=== PATIENT | female | born 1945 | race Caucasian/White ===

== ENCOUNTER 2018-02-16 13:31 | Inpatient (IN) | payer MEDICARE ==
[~2018-02-16] VITALS: Ht 157.5 cm; Wt 85.3 kg
[2018-02-16 13:37] VITALS: BP 159/68
[2018-02-16] MEDS ORDERED: NACL 0.9% 1,000 ML IV ONE (13:45)
[2018-02-16] MEDS ORDERED: AMLO2.5T PO (13:55)
[2018-02-16] MEDS ORDERED: ATOR40TA PO (13:55)
[2018-02-16] MEDS ORDERED: SUCR1TAB35 PO (13:55)
[2018-02-16] MEDS ORDERED: METF1000 PO (13:55)
[2018-02-16] MEDS ORDERED: METO25TE2 PO (13:55)
[2018-02-16] MEDS ORDERED: GLIP10TA3 PO (13:55)
--- NOTE | 2018-02-16 14:02 | NUR ---
XRA AT BEDSIDE Addendum: 02/16/18 at 1403 by [facility] XRAY
--- NOTE | 2018-02-16 14:07 | NUR ---
BIBA. RIGHT HIP PAIN, WORSE TODAY. STATES SHE WAS UNABLE TO AMBULATE WITH HER WALKER TODAY. DENIES TRAUMA. HOSPICE. HX: CHF,HTN,DM. FENTANYL PATCH LT. SHOULDER.DENIES N/V/D; SKIN IS PINK/WARM/DRY; AAOX4 WITH EVEN AND STEADY GAIT; LUNGS CLEAR BL; HR EVEN AND REGULAR; PT DENIES ANY FEVER, CP, SOB, OR COUGH AT THIS TIME; PATIENT STATES PAIN OF 9/10 AT THIS TIME; VSS; PATIENT POSITIONED FOR COMFORT; HOB ELEVATED; BEDRAILS UP X2; BED DOWN. ER MD MADE AWARE OF PT STATUS.
[2018-02-16] MEDS ORDERED: MORPHINE SULFATE 4 MG/ML SYR IVP ONE (14:10)
--- NOTE | 2018-02-16 15:20 | NUR ---
SPOKE WITH PATIENTS DAUGHTER OLGA. HER DAUGHTER EXPLAINED THAT HER MOTHERS HOME WAS BEING AUCTIONED OFF TOMMORROW AND SHE CAN NOT RETURN THERE. SHE STATES THAT HER HOME IS NOT CURRENTLY LIVABLE DUE TO HER MOTHER "POOPING, VOMITING, AND PEEING ALL OVER". STATES THEY HAVE CALLED APS 3 TIMES AND NOTHING HAS BEEN CHANGED. DAUGHTER REFUESED TO TAKE RESPONSIBILITY FOR THE PATIENT. WILL FOLLOW UP WITH SW TO DETERMINE THE NEXT STEP.
--- NOTE | 2018-02-16 15:30 | NUR ---
CALLED SW AND LEFT A MESSAGE EXPLAINING THE SITUATION.
--- NOTE | 2018-02-16 15:42 | NUR ---
SPOKE WITH SARAH REGARDING PATIENT PLACEMENT ISSUES. THEY STATED THAT HER INSURANCE WOULD ONLY COVER SNF CARE IF THERE WAS A MEDICAL REASON, THEY WILL NOT COVER HOSPICE CARE IN A ALF. EXPLAINED THIS INFORMATION TO DR JACOBO.
[2018-02-16 15:47] LABS: BASOPHILS % (AUTO) 0.3 % (0.0-2.0); EOSINOPHILS # (AUTO) 0.2 K/uL (0-0.4); EOSINOPHILS % (AUTO) 2.2 % (0.0-4.0); HEMATOCRIT 31.6 % (36-48); HEMOGLOBIN 9.5 g/dL (12.0-16.0); LYMPHOCYTES % (AUTO) 26.1 % (20.5-51.1); MEAN CORPUSCULAR HEMOGLOBIN 20 pg (27-31); MEAN CORPUSCULAR HGB CONC 30 g/dL (33-37); MEAN CORPUSCULAR VOLUME 67.9 fL (80-94); MONOCYTES # (AUTO) 0.6 K/uL (0.8-1.0); MONOCYTES % (AUTO) 5.6 % (1.7-9.3); NEUTROPHILS # (AUTO) 7.5 K/uL (1.8-7.7); NEUTROPHILS % (AUTO) 65.8 % (42.2-75.2); PLATELET COUNT (AUTO) 319 K/uL (140-450); RED BLOOD CELL COUNT(AUTO) 4.65 MIL/uL (4.20-5.40); RED CELL DISTRIBUTION WIDTH 19.4 % (11.6-13.7); WHITE BLOOD COUNT (AUTO) 11.3 K/uL (4.8-10.8)
--- NOTE | 2018-02-16 16:00 | NUR ---
SPOKE WITH DAUGHTER OLGA AGAIN. SHE STATED THAT SHE DOES NOT HAVE A TERMINAL ILLNESS AND IS ON HOSPICE BECAUSE SHE "WANTS TO BE". DAUGHTER STATED SHE HAS HAD MANY TIA'S. SHE GAVE ME THE NUMBER FOR HER SW AND THE BITUMASTIC APPLIER AT [facility] THAT THEY HAVE DEALT WITH IN THE PAST.
[2018-02-16 16:10] LABS: ALBUMIN 2.8 g/dL (3.4-5.0); ANION GAP 13.4 (8-16); ASPARTATE AMINOTRANSFERASE 12 U/L (15-37); CARBON DIOXIDE 27.7 mmol/L (21-32); CHLORIDE 100 mmol/L (98-107); CREATININE 1.1 mg/dL (0.6-1.3); POTASSIUM 4.1 mmol/L (3.5-5.1); SODIUM SERUM 137 mmol/L (136-145); TOTAL BILIRUBIN 0.3 mg/dL (0.0-1.0); UREA NITROGEN, BLOOD 21 mg/dL (7-18)
--- NOTE | 2018-02-16 16:15 | NUR ---
SPOKE WITH SW AND GAVE HER THE HOSPICE INFORMATION. SHE INSTRUCTED ME TO CALL APS. WILL FOLLOW UP.
--- NOTE | 2018-02-16 16:25 | NUR ---
CALLED APS, NO ANSWER LEFT A MESSAGE WITH MARYBETH BARRETO. WILL FOLLOW UP.
[2018-02-16 16:35] LABS: GLUCOSE 421 mg/dL (74-106)
[2018-02-16] MEDS ORDERED: ACETAMINOPHEN 325 MG TAB PO PRN (17:10)
[2018-02-16] MEDS ORDERED: LORazepam 2 MG/ML VIAL IM/IVP PRN (17:10)
[2018-02-16] MEDS ORDERED: ZOLPIDEM 5 MG TAB PO PRN (17:10)
[2018-02-16] MEDS ORDERED: DOCUSATE SODIUM 100 MG GELCAP PO PRN (17:10)
[2018-02-16] MEDS ORDERED: DEXTROSE 50% 50 ML SYR IVP PRN (17:15)
--- NOTE | 2018-02-16 17:45 | NUR ---
GAVE REPORT TO TELE NURSE. PATIENT STABLE.
[2018-02-16 17:46] LABS: MAGNESIUM 1.5 mg/dL (1.8-2.4); PHOSPHORUS 3.1 mg/dL (2.5-4.9); THYROID STIMULATING HORMONE 2.51 uIU/mL (0.34-3.74)
--- NOTE | 2018-02-16 17:55 | NUR ---
RECEIVED PT FROM ER NURSE, PT IS AAOX3. MRSA DONE, VITALS TAKEN. PLACED PT ON TELE. FALL RISK PROTOCOL IN PLACE. BED IN LOWEST POSITION, BED ALARM ON. PT IN YELLOW GOWN AND SOCKS. Addendum: 02/16/18 at 1939 by Umer Valle RN CALL LIGHT WITHIN REACH. ORIENTED PT TO ROOM.
[2018-02-16 18:00] VITALS: BP 184/83
[2018-02-16] MEDS: NACL 0.9% 1,000 ML IV SCH (18:00)
--- NOTE | 2018-02-16 18:05 | NUR ---
CALLED PHARM, REQUESTING ROCEPHIN. PHARM STATED THE ROCEPHIN ORDER WAS PUT IN BY ER DOCTOR. THE FLOOR DOCTOR HAS TO PUT NEW ORDER. MADE DR LOU AWARE.
--- NOTE | 2018-02-16 18:05 | NUR ---
ALSO MADE DR LOU AWARE OF THE BP 184/83
[2018-02-16] MEDS ORDERED: MAG SULF 2000 MG/WATER PREMIX 50 ML IV SCH (18:09)
--- NOTE | 2018-02-16 18:15 | NUR ---
PT C/O LEFT HIP PAIN, WILL ADMINISTER PRN PAIN MED. NO S/S OF RESPIRATORY DISTRESS NOTED.
[2018-02-16] MEDS: MORPHINE SULFATE 4 MG/ML SYR IVP PRN ×2 (18:23→23:42)
[2018-02-16] MEDS ORDERED: LACTOBACILLUS RHAMNOSUS GG 1 EACH CAP PO SCH (18:51)
--- NOTE | 2018-02-16 19:25 | NUR ---
ENDORSED PT TO SAP BW DEVELOPER. PT IN STABLE CONDITION. Addendum: 02/16/18 at 8 by Umer Valle RN NIGHTSHIFT RN WILL ADMINISTER ROCEPHIN.
--- NOTE | 2018-02-16 19:25 | NUR ---
RECEIVED ENDORSEMENT FROM GINA BEARD DAYSHIFT NURSE FOR CONTINUITY OF CARE, PT IN STABLE CONDITION.
[2018-02-16 19:30] VITALS: BP 122/41
[2018-02-16 19:34] LABS: PROTHROMBIN TIME 9.4 secs (10.8-13.4)
[2018-02-16] MEDS ORDERED: ASPI81CT89 PO (20:10)
[2018-02-16] MEDS ORDERED: metFORMIN 500 MG TAB PO SCH (21:00)
--- NOTE | 2018-02-16 21:00 | NUR ---
PT IN BED WITH SIDE RAILS UP X2 AND ALL FALLS PRECAUTIONS IN PLACE. PT GIVEN ALL MEDS DUE AT THIS TIME. GLUCOSE CHECK WAS 323 GIVEN 8 UNITS OF COVERAGE WITH HUMALOG. IV SITE ON LEFT AC INTACT AND FLUSHED PATENT.
[2018-02-16] MEDS: ATORVASTATIN 20 MG TAB PO SCH (21:18)
[2018-02-16] MEDS: METOPROLOL SUCCINATE 50 MG TABER PO SCH (21:19)
[2018-02-16] MEDS: BLOOD GLUCOSE MONITORING 1 DEV DEV FS SCH (21:22)
[2018-02-16] MEDS: INSULIN LISPRO SLIDING SCALE 100 UNITS/ML VIAL SUBQ PRN (21:39)
[2018-02-16] MEDS: KETOROLAC 30 MG/ML VIAL IVP PRN (21:42)
--- NOTE | 2018-02-16 21:45 | NUR ---
PT C/O 6/10 LEFT HIP PAIN, PT GIVEN TORADOL 15MG IVP WILL MONITOR FOR EFFECT.
--- NOTE | 2018-02-16 22:00 | NUR ---
PT BROUGHT DOWN FOR CT OF HEAD WITHOUT CONTRAST.
--- NOTE | 2018-02-16 22:25 | NUR ---
PT RETURNED FROM RADIOLOGY WITH ANDREEA ESCORTING PT VIA W/C TO PT BED. PT ASSISTED BACK TO BED, ALL FALLS PRECAUTIONS IN PLACE.
--- NOTE | 2018-02-16 22:45 | NUR ---
AYLIN FROM RADIOLOGY CALLED WITH RESULTS OF CT SCAN WHICH WAS NEGATIVE. SOME MODERATE ATROPHY, INDICATIVE OF AGE CHANGES. NO ACUTE CHANGES NOTED.
--- NOTE | 2018-02-16 23:50 | NUR ---
PT SAID THAT TORADOL WAS NO LONGER EFFECTIVE AND SHE SAID HER PAIN IS NOW UP TO 8/10, PT GIVEN PRN IVP MORPHINE, WILL MONITOR EFFECT. PT MADE COMFORTABLE AND GIVEN HOT SOUP REQUESTED. WILL CONTINUE TO MONITOR FOR PAIN RELIEF.
--- NOTE | 2018-02-17 00:30 | NUR ---
PT IN BED SIDE RAILS UP X2, HOB ELEVATED 45%. N/S RUNNING ORDERED IV SITE ON RAC FLUSHED NICO, V/S FOLLOWS T 98.0 P 78 R 18 B/P 124/64 02 92 ON R/A. NO S/S OF PAIN OR DISTRESS NOTED. CALL WEAVER IN REACH AND ALL REQUESTED NEEDS ATTENDED BY STAFF.
--- NOTE | 2018-02-17 01:00 | NUR ---
PT C/O OF 11/28 PAIN IN L HIP, GIVEN PRN MORPHINE VIA IV. PT IV SITE SHOWS SOME LEAKING , HOWEVER WILL FLUSH PATENT WITHOUT PAIN. NEW IV SITE ATTEMPTED X1 UNSUCCESSFULLY. PT REFUSED A 2ND ATTEMPT, EVEN AFTER RISKS AND BENEFITS EXPLAINED.PRIMARY NURSE SUGGESTED THAT ANOTHER NURSE, THE CHARGE NURSE CAN ATTEMPT A NEW SITE BUT PT CONTINUED TO REFUSE SAYING THAT SHE DOESN'T WANT A NEW SITE TONIGHT MAYBE TOMMORROW.
[2018-02-17 04:00] VITALS: BP 154/74
--- NOTE | 2018-02-17 05:00 | NUR ---
PT IN BED C/O HIP PAIN /10 GIVEN MORPHINE PRN. LAB DRAWS AT BEDSIDE. V/S FOLLOWS T 98.1 P 96 R 20 B/P 154/71 02 95%. F/S 255 GIVEN 6 UNIYTS OF HUMOLOG
[2018-02-17] MEDS: BLOOD GLUCOSE MONITORING 1 DEV DEV FS SCH ×4 (06:17→20:11)
[2018-02-17] MEDS: INSULIN LISPRO SLIDING SCALE 100 UNITS/ML VIAL SUBQ PRN ×4 (06:21→20:27)
[2018-02-17] MEDS: MORPHINE SULFATE 4 MG/ML SYR IVP PRN ×3 (06:24→18:32)
[2018-02-17 06:30] LABS: T4 (THYROXINE) 7.7 ug/dL (4.5-12.0)
--- NOTE | 2018-02-17 07:36 | NUR ---
REPORT GIVEN TO IRAIDA BEARD DAYSHIFT NURSE, ATBEDSIDE , PT IN STABLE CONDITION.
--- NOTE | 2018-02-17 07:37 | NUR ---
RECEIVED BEDSIDE REPORT FROM FURNITURE FINISHER NURSE. PATIENT IS AWAKE, ALERT AND ORIENTEDX4. NO SIGNS OF DISTRESS ON RA. PATIENTS GAIT IS UNSTEADY, FALL RISK PROTOCOL IN PLACE. ALLERGY BAND IN PLACE. SHE IS INCONTINENT. SKIN INTACT. IV ON R AC 20G INFUSING NS AT 60. CLEAN, DRY AND INTACT. TELE MONITOR IN PLACE. BED IN LOW POSITION. CALL LIGHT WITHIN REACH. WILL CONTINUE TO MONITOR THE PATIENT
[2018-02-17 07:59] LABS: EOSINOPHILS # (AUTO) 0.5 K/uL (0-0.4); HEMOGLOBIN 8.3 g/dL (12.0-16.0); MONOCYTES # (AUTO) 0.9 K/uL (0.8-1.0)
[2018-02-17 08:00] VITALS: BP 151/70
[2018-02-17 08:14] LABS: BASOPHILS # (AUTO) 0.1 K/uL (0.00-0.22); BASOPHILS % (AUTO) 0.5 % (0.0-2.0); EOSINOPHILS % (AUTO) 3.8 % (0.0-4.0); HEMATOCRIT 27.4 % (36-48); LYMPHOCYTES # (AUTO) 3.6 K/uL (2.5-16.5); LYMPHOCYTES % (AUTO) 28.2 % (20.5-51.1); MEAN CORPUSCULAR HEMOGLOBIN 21 pg (27-31); MEAN CORPUSCULAR HGB CONC 30 g/dL (33-37); MEAN CORPUSCULAR VOLUME 67.5 fL (80-94); MONOCYTES % (AUTO) 7.1 % (1.7-9.3); NEUTROPHILS # (AUTO) 7.6 K/uL (1.8-7.7); NEUTROPHILS % (AUTO) 60.4 % (42.2-75.2); PLATELET COUNT (AUTO) 270 K/uL (140-450); RED BLOOD CELL COUNT(AUTO) 4.06 MIL/uL (4.20-5.40); WHITE BLOOD COUNT (AUTO) 12.6 K/uL (4.8-10.8)
[2018-02-17 08:20] LABS: ANION GAP 14.7 (8-16); CARBON DIOXIDE 23.2 mmol/L (21-32); CHLORIDE 105 mmol/L (98-107); CREATININE 1.1 mg/dL (0.6-1.3); GLUCOSE 251 mg/dL (74-106); POTASSIUM 3.9 mmol/L (3.5-5.1); SODIUM SERUM 139 mmol/L (136-145); UREA NITROGEN, BLOOD 19 mg/dL (7-18)
[2018-02-17 08:30] LABS: MAGNESIUM 1.8 mg/dL (1.8-2.4); PHOSPHORUS 3.4 mg/dL (2.5-4.9)
--- NOTE | 2018-02-17 08:39 | NUR ---
PATIENT HAS BEEN SCREENED AND CATEGORIZED HIGH NUTRITION RISK. PATIENT WILL BE SEEN WITHIN 1-2 DAYS OF ADMISSION. 02/17/18 02/18/[address]
[2018-02-17] MEDS: metFORMIN 500 MG TAB PO SCH ×2 (08:42→16:48)
[2018-02-17] MEDS: LACTOBACILLUS RHAMNOSUS GG 1 EACH CAP PO SCH (08:43)
[2018-02-17] MEDS: KETOROLAC 30 MG/ML VIAL IVP PRN ×2 (08:43→16:49)
[2018-02-17] MEDS: SUCRALFATE 1 GM TAB PO SCH ×3 (08:43→16:48)
[2018-02-17] MEDS: FERROUS SULFATE 325 MG TABEC PO SCH (08:44)
[2018-02-17] MEDS: ASCORBIC ACID 500 MG TAB PO SCH (08:45)
[2018-02-17] MEDS: amLODIPine 5 MG TAB PO SCH (08:45)
--- NOTE | 2018-02-17 08:45 | NUR ---
Sap Bw Bi Developer Note: Late entry for 02/16/18: KISHA Martin informed me that patient is not able to return to her home because it is not livable. She stated she will make an APS report for self neglect and possibly abandonment as well. KISHA Ramos stated prior to patients hospital admission patient was living alone and was receiving hospice services from [facility] . She told me patient does not have any other place she can go to. She inquired if family welfare social work professor dept could assist with retirement facility placement. I explained to her that patient needs to have [employer] coverage to be transfer to a snf with hospice services. I also told her that patient can possibly be transfer to a snf if she has a skilled need (wound care, physical therapy, or abx iv/s). She stated she will ask MD if patient has a skilled need.
[2018-02-17] MEDS: glipiZIDE 10 MG TAB PO SCH ×2 (08:46→20:08)
[2018-02-17] MEDS: ASPIRIN 81 MG TAB.CHEW PO SCH (08:46)
--- NOTE | 2018-02-17 08:58 | NUR ---
SP[place] [facility] [place] SAID TO FA[place] FACE SHEET, H&P AND ORDER FOR SNF TO HER AND SHE NEEDS TO CHECK ELIGIBILITY. FAX [phone] PHONE ALISHA [phone].
[2018-02-17] MEDS ORDERED: SODIUM FERRIC GLUCONATE 125 MG in NACL 0.9% 100 ML IV SCH (09:00)
--- NOTE | 2018-02-17 09:20 | NUR ---
ADMINISTERED MEDS. PATIENT TOLERATED WELL. PATIENT ASKED TO BE PLACED IN BED WHITE. UNABLE TO URINATE FOR A UA. WILL TELL DR FOR STRAIGHT CATH ORDER. ALSO TOLD PATIENT WE NEED A STOOL SAMPLE.
[2018-02-17 09:55] LABS: CHOL/HDL RATIO 3.8 (1-4.5)
--- NOTE | 2018-02-17 10:05 | NUR ---
Equine Breeder Note: I called and spoke with patients daughter Kim Kohli , per Kim, she attempted to assist patient with placement in the past due to her (patients) home not being livable, however, she stated patient refused to move out. She told me when patient was home she would sit on couch, watch TV, eat sugar, urine and defecate on couch all day long. She expressed that patient cannot be discharge to her home upon discharge because she is mean to her children and is non compliant. Kim stated patient does not have any other family she can stay with upon discharge from hospital and is aware we will fax inquiries to snf/s. She told me patients house was foreclosed. She stated patient does not know how to manage her finances. 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 I asked her if patient had applied for [employer] in the past or if she had assisted patient with this. She replied she attempted to complete a [employer] application for patient, however, she didnt have all of the required documents, therefore was not able to complete application. She stated patients monthly income is about $1850. I informed her [employer] hvac sales representative Juan will contact her and assist her with [employer] application. Kim agreed to be cooperative with Juan. I requested Juan ext [phone] to assist Kim with filling out patients [employer] application, Director Brandi and heel caser Moriah made aware.
--- NOTE | 2018-02-17 10:21 | NUR ---
DRYING ROOM SUPERVISOR AT BEDSIDE. WILL PLACE STRAIGHT CATH AFTER ECHO IS DONE. PATIENT AGREED TO STRAIGHT CATH
--- NOTE | 2018-02-17 11:11 | NUR ---
STRAIGHT CATH WAS DONE. URINE SAMPLE COLLECTED AND SENT TO LAB.
--- NOTE | 2018-02-17 11:53 | NUR ---
RECEIVED A CALL FROM ALISHA [place] [facility] [place] SHE SAID TO FAX THE REVIEW TO KHALIF AT [phone], WHICH I DID. ADMISSION CHART REVIEW DONE. FAXED INITIAL REVIEW TO [phone] PHONE ALISHA [phone].
[2018-02-17 12:00] VITALS: BP 179/65
[2018-02-17] MEDS: ONDANSETRON 4 MG/2 ML VIAL IM/IVP PRN (13:08)
[2018-02-17 13:11] LABS: FOLIC ACID 13.4 ng/mL (>3.0)
--- NOTE | 2018-02-17 13:11 | NUR ---
ADMINISTERED PRN ZOFRAN. PATIENT VOMITED, B/P ELEVATED. DR BRYAN IS AWARE.
--- NOTE | 2018-02-17 14:19 | NUR ---
Colorist Dyer Note: I faxed inquiry to [facility]. Per Anjali from [facility], they have a contract with [facility] and they can accept patient for physical therapy and have a intermediate frame tender bed available as well. Anjali is aware patient can't return home upon discharge, senior case manager Moriah made aware.
--- NOTE | 2018-02-17 14:42 | NUR ---
[place] [facility] [place] P.T. NOTES TO HER AT [phone]. SHE SAID THAT [facility] WOULD BE WILLING TO ACCEPT THIS PATIENT. I INFORMED HER THAT [facility] WOULD ALSO TAKE HER AND THEY HAVE A INTERMEDIATE BED FOR HER. ALISHA SAID TO LET HER KNOW TOMORROW WHEN PATIENT IS DISCHARGED TO WHICH FACILITY THE PATIENT WILL GO TO AND SHE WILL GIVE THE AUTH. SHE GAVE ME THE AUTH NUMBER FOR [facility], [id number].
[2018-02-17] MEDS: NACL 0.9% 1,000 ML IV SCH (14:45)
--- NOTE | 2018-02-17 15:00 | NUR ---
PATIENT SLEEPING. WILL CONTINUE TO MONITOR
[2018-02-17 15:39] LABS: APPEARANCE,URINE CLEAR (CLEAR); COLOR,URINE YELLOW (YELLOW)
[2018-02-17 15:40] LABS: BILIRUBIN,URINE NEGATIVE (NEGATIVE); BLOOD, URINE 1+ (NEGATIVE); LEUKOCYTE ESTERASE ,URINE 1+ (NEGATIVE); NITRITE, URINE NEGATIVE (NEGATIVE); UGLUCOSE TRACE (NEGATIVE)
[2018-02-17 15:41] LABS: BARBITURATE, URINE NEG. ng/ml (NEG <=200); BENZODIAZEPINE, URINE NEG. ng/mL (NEG <=200); CANNABINOID, URINE NEG. ng/mL (NEG <=50); COCAINE, URINE NEG. ng/mL (NEG <=300); OPIATE, URINE POS. ng/mL (NEG <=2000); PHENCYCLIDINE SCREEN,URINE NEG. ng/mL (NEG <=25)
[2018-02-17 15:42] LABS: RBC,URINE 0-5 (RARE) /HPF (0-5)
[2018-02-17 16:00] VITALS: BP 146/67
--- NOTE | 2018-02-17 17:00 | NUR ---
ADMINISTERED PRN PAIN MEDS. PATIENT TOLERATED WELL. WILL CONTINUE TO MONITOR.
--- NOTE | 2018-02-17 19:05 | NUR ---
RECEIVED REPORT AT BEDSIDE FROM IRAIDA RN DAYSHIFT NURSE, PT IN STABLE CONDITION.
--- NOTE | 2018-02-17 19:05 | NUR ---
GAVE BEDSIDE REPORT TO COOK HELPER JUICE NURSE. PATIENT ENDORSED IN STABLE CONDITION
[2018-02-17 20:00] VITALS: BP 131/53
--- NOTE | 2018-02-17 20:00 | NUR ---
V/S FOLLOWS T 98.4 P 85 R 18 B/P 131/53 02 91 WITH R/A. BED LOW AND ALL FALLS PRECAUTIONS IN PLACE.
[2018-02-17] MEDS: ATORVASTATIN 20 MG TAB PO SCH (20:08)
[2018-02-17] MEDS: METOPROLOL SUCCINATE 50 MG TABER PO SCH (20:10)
--- NOTE | 2018-02-17 21:00 | NUR ---
PT IN LOW BED SIDE RAILS UP X2 AND ALL FALLS PRECAUTIONS IN PLACE. PT GIVEN ALL DUE MEDS AT THIS TIME . PT F/S WAS 154 GIVEN 2 UNITS OF COVERAGE WITH HUMALOG. PT HAD NO C/O OF PAIN AT THIS TIME BUT REQUESTED PM SNACK OF SUGAR FREE JELLO WHICH WAS GIVEN TO HER.
[2018-02-18] VITALS: BP 118/52
[2018-02-18] MEDS: MORPHINE SULFATE 4 MG/ML SYR IVP PRN ×5 (00:35→22:28)
[2018-02-18] MEDS: NACL 0.9% 1,000 ML IV SCH ×2 (02:27→20:19)
[2018-02-18 06:00] VITALS: BP 105/63
[2018-02-18] MEDS: BLOOD GLUCOSE MONITORING 1 DEV DEV FS SCH ×4 (06:05→20:01)
[2018-02-18] MEDS: metFORMIN 500 MG TAB PO SCH (06:07)
--- NOTE | 2018-02-18 07:20 | NUR ---
GAVE REPORT AT BEDSIDE TO DAYSHIFT RN FOR CONTINUITY OF CARE, PT INSTABLE CONDITION
--- NOTE | 2018-02-18 07:21 | NUR ---
RECEIVED BEDSIDE REPORT FROM INSTRUMENT AND CONTROLS TECHNICIAN NURSE. PATIENT IS AWAKE, ALERT AND ORIENTEDX4. SHE IS WEAK, FALL RISK PROTOCOL IN PLACE. INCONTINENT. SKIN IS INTACT. TELE MONITOR IN PLACE. R AC 20G INFUSING NS AT 60. CLEAN, DRY AND INTACT. BED IN LOW POSITION. CALL LIGHT WITHIN REACH. WILL CONTINUE TO MONITOR THE PATIENT.
[2018-02-18 07:26] LABS: BASOPHILS # (AUTO) 0.1 K/uL (0.00-0.22); BASOPHILS % (AUTO) 0.5 % (0.0-2.0); EOSINOPHILS # (AUTO) 0.4 K/uL (0-0.4); HEMATOCRIT 26.9 % (36-48); HEMOGLOBIN 8.2 g/dL (12.0-16.0); LYMPHOCYTES # (AUTO) 4.6 K/uL (2.5-16.5); LYMPHOCYTES % (AUTO) 40.9 % (20.5-51.1); MEAN CORPUSCULAR HEMOGLOBIN 21 pg (27-31); MEAN CORPUSCULAR HGB CONC 30 g/dL (33-37); MEAN CORPUSCULAR VOLUME 68.3 fL (80-94); MONOCYTES # (AUTO) 0.8 K/uL (0.8-1.0); MONOCYTES % (AUTO) 6.8 % (1.7-9.3); NEUTROPHILS # (AUTO) 5.4 K/uL (1.8-7.7); NEUTROPHILS % (AUTO) 47.8 % (42.2-75.2); PLATELET COUNT (AUTO) 272 K/uL (140-450); RED BLOOD CELL COUNT(AUTO) 3.94 MIL/uL (4.20-5.40); RED CELL DISTRIBUTION WIDTH 19.7 % (11.6-13.7); WHITE BLOOD COUNT (AUTO) 11.3 K/uL (4.8-10.8)
[2018-02-18 07:44] LABS: ANION GAP 13.1 (8-16); CARBON DIOXIDE 24.7 mmol/L (21-32); CHLORIDE 106 mmol/L (98-107); CREATININE 1.1 mg/dL (0.6-1.3); GLUCOSE 120 mg/dL (74-106); POTASSIUM 3.8 mmol/L (3.5-5.1); SODIUM SERUM 140 mmol/L (136-145); UREA NITROGEN, BLOOD 22 mg/dL (7-18)
[2018-02-18 07:54] LABS: MAGNESIUM 1.8 mg/dL (1.8-2.4); PHOSPHORUS 3.4 mg/dL (2.5-4.9)
[2018-02-18 08:00] VITALS: BP 127/60
[2018-02-18] MEDS: glipiZIDE 10 MG TAB PO SCH ×2 (09:37→20:21)
[2018-02-18] MEDS: LACTOBACILLUS RHAMNOSUS GG 1 EACH CAP PO SCH (09:37)
[2018-02-18] MEDS: FERROUS SULFATE 325 MG TABEC PO SCH (09:38)
[2018-02-18] MEDS: SUCRALFATE 1 GM TAB PO SCH ×3 (09:38→18:13)
[2018-02-18] MEDS: amLODIPine 5 MG TAB PO SCH (09:39)
[2018-02-18] MEDS: ASPIRIN 81 MG TAB.CHEW PO SCH (09:40)
[2018-02-18] MEDS: ASCORBIC ACID 500 MG TAB PO SCH (09:40)
[2018-02-18] MEDS: ONDANSETRON 4 MG/2 ML VIAL IM/IVP PRN (09:49)
--- NOTE | 2018-02-18 09:55 | NUR ---
ADMINISTERED MEDS. PATIENT TOLERATED WELL. WILL CONTINUE TO MONITOR THE PATIENT.
--- NOTE | 2018-02-18 11:00 | NUR ---
PATIENT IS SLEEPING. NO SIGNS OF DISTRESS. WILL CONTINUE TO MONITOR
[2018-02-18 12:00] VITALS: BP 150/68
[2018-02-18] MEDS ORDERED: PANTOPRAZOLE 40 MG TABEC PO SCH (13:30)
[2018-02-18] MEDS: INSULIN LISPRO SLIDING SCALE 100 UNITS/ML VIAL SUBQ PRN ×3 (13:34→20:26)
--- NOTE | 2018-02-18 13:38 | NUR ---
ADMINISTERED MEDS. PATIENT HAS HEARTBURN. DR MEDEROS ORDERED PROTONIX, PATIENT TOLERATED WELL. ADMINISTERED PRN MORPHINE FOR PAIN. NEW IV ON L FA 20G, OTHER IV SITE NOT PATENT ANYMORE. Addendum: 02/18/18 at 1340 by Saundra Meier RN IV TIP WAS INTACT.
--- NOTE | 2018-02-18 15:11 | NUR ---
02/18/18 RD INITIAL ASSESSMENT COMPLETED PLEASE REFER TO NUTRITION ASSESSMENT UNDER CARE ACTIVITY FOR ESTIMATED NUTRITIONAL NEEDS. 1. CONTINUE CARDIAC & CCHO 60 GM DIET TOLERATED 2. RD PROVIDED NUTRITION EDUCATION ON DIABETES 3. RD TO FOLLOW-UP 3-5 DAYS, MODERATE RISK YASMEEN ROSS RD
[2018-02-18] MEDS: KETOROLAC 30 MG/ML VIAL IVP PRN (15:41)
--- NOTE | 2018-02-18 15:45 | NUR ---
ADMINISTERED PRN PAIN MEDS. PATIENT TOLERATED WELL. BED IN LOW POSITION. CALL LIGHT WITHIN REACH. WILL CONTINUE TO MONITOR.
[2018-02-18 16:00] VITALS: BP 128/53
--- NOTE | 2018-02-18 17:43 | NUR ---
PATIENT LAYING IN BED. NO SIGNS OF DISTRESS. WILL CONTINUE TO MONITOR
--- NOTE | 2018-02-18 18:21 | NUR ---
ADMINISTERED MEDS. PATIENT TOLERATED WELL. WILL CONTINUE TO MONITOR
--- NOTE | 2018-02-18 19:15 | NUR ---
GAVE BEDSIDE REPORT TO FIRE PREVENTION BUREAU CAPTAIN NURSE. PATIENT ENDORSED IN STABLE CONDITION
--- NOTE | 2018-02-18 19:15 | NUR ---
RECEIVED REPORT FROM DAY SHIFT NURSE, STEVE, AT PT BEDSIDE. PT IN STABLE CONDITION. PT IS AAO X4. PT IS ON RA. RESPIRATIONS ARE EVEN AND UNLABORED. PT SKIN IS INTACT. IV ACCESS IN L FA 22G WITH IVF RUNNING PER MD ORDERS. IV IS PATENT ADN INTACT. PT HAS NO C/O PAIN AT THIS TIME. BED IS LOCKED, LOW POSITION WITH SIDE RAILS UP X2. BOARD UPDATED. CALL LIGHT IS WITHIN REACH. WILL CONTINUE TO MONITOR. Addendum: 02/18/18 at 2124 by Kassidy Deluna RN PT REFUSING TO WEAR ALLERGY WRISTBAND.
[2018-02-18 20:00] VITALS: BP 122/44
[2018-02-18] MEDS: METOPROLOL SUCCINATE 50 MG TABER PO SCH (20:20)
[2018-02-18] MEDS: ATORVASTATIN 20 MG TAB PO SCH (20:21)
--- NOTE | 2018-02-18 20:22 | NUR ---
ADMINISTERED SCHEDULED MEDICATIONS. INSULIN COVERAGE GIVEN FOR BS 189. PT TOLERATED WELL. WILL CONTINUE TO MONITOR.
--- NOTE | 2018-02-18 22:28 | NUR ---
PT C/O PAIN. MORPHINE GIVEN. PT CLEANED AND CHANGED. PT TOLERATED WELL. ALL OTHER NEEDS ARE MET AT THIS TIME. WILL CONTINUE TO MONITOR.
--- NOTE | 2018-02-18 23:28 | NUR ---
PT NO LONGER C/O PAIN. PT IS RESTING COMFORTABLY IN BED. NO SIGNS OR SYMPTOMS OF DISTRESS. WILL CONTINUE TO MONITOR.
[2018-02-19] VITALS: BP 132/72
--- NOTE | 2018-02-19 01:05 | NUR ---
ASSISTED PT WITH REPOSITIONING FOR COMFORT. PT HAS NO SIGNS OR SYMPTOMS OF DISTRESS. WILL CONTINUE TO MONITOR.
[2018-02-19] MEDS: NACL 0.9% 1,000 ML IV SCH (03:02)
--- NOTE | 2018-02-19 03:02 | NUR ---
STARTED NEW BAG OF IVF. PT IS ASLEEP IN BED. NO SIGNS OR SYMPTOMS OF DISTRESS. WILL CONTINUE TO MONITOR.
[2018-02-19 04:00] VITALS: BP 136/51
[2018-02-19] MEDS: MORPHINE SULFATE 4 MG/ML SYR IVP PRN ×2 (04:13→09:44)
--- NOTE | 2018-02-19 04:14 | NUR ---
PT C/O PAIN. MORPHINE GIVEN. CHANGED AND CLEANED PT. PT TOLERATED WELL. WILL CONTINUE TO MONITOR.
[2018-02-19] MEDS: BLOOD GLUCOSE MONITORING 1 DEV DEV FS SCH ×2 (05:55→12:24)
--- NOTE | 2018-02-19 05:57 | NUR ---
ADMINISTERED SCHEDULED MEDICATION. BS CHECKED, 103. NO COVERAGE NEEDED PER MD ORDERS. WILL CONTINUE TO MONITOR PT.
[2018-02-19] MEDS ORDERED: PANTOPRAZOLE 40 MG TABEC PO SCH ×2 (06:30)
[2018-02-19 07:14] LABS: BASOPHILS # (AUTO) 0.1 K/uL (0.00-0.22); BASOPHILS % (AUTO) 0.9 % (0.0-2.0); EOSINOPHILS # (AUTO) 0.6 K/uL (0-0.4); HEMATOCRIT 27.8 % (36-48); HEMOGLOBIN 8.4 g/dL (12.0-16.0); LYMPHOCYTES # (AUTO) 5.1 K/uL (2.5-16.5); LYMPHOCYTES % (AUTO) 46.1 % (20.5-51.1); MEAN CORPUSCULAR HEMOGLOBIN 21 pg (27-31); MEAN CORPUSCULAR HGB CONC 30 g/dL (33-37); MEAN CORPUSCULAR VOLUME 69.1 fL (80-94); MONOCYTES # (AUTO) 0.8 K/uL (0.8-1.0); MONOCYTES % (AUTO) 7.5 % (1.7-9.3); NEUTROPHILS # (AUTO) 4.5 K/uL (1.8-7.7); NEUTROPHILS % (AUTO) 40.5 % (42.2-75.2); PLATELET COUNT (AUTO) 273 K/uL (140-450); RED BLOOD CELL COUNT(AUTO) 4.02 MIL/uL (4.20-5.40); RED CELL DISTRIBUTION WIDTH 19.6 % (11.6-13.7); WHITE BLOOD COUNT (AUTO) 11.1 K/uL (4.8-10.8)
--- NOTE | 2018-02-19 07:25 | NUR ---
ENDORSED PT TO DAY SHIFT NURSE FOR CONTINUITY OF CARE. PT IN STABLE CONDITION.
--- NOTE | 2018-02-19 07:26 | NUR ---
RECEIVED REPORT FROM RECRUITER NURSE. PT LYING IN BED IN STABLE CONDITION. RESPIRATIONS EVEN AND UNLABORED. ROOM AIR. IV INTACT, PATENT, RFA 22G. REVIEWED CARE PLAN WITH PT, PT VERBALIZED UNDERSTANDING OF CARE PLAN. SAFETY MEASURES IN PLACE. CALL LIGHT AT BEDSIDE. WILL CONTINUE TO MONITOR.
[2018-02-19 07:32] LABS: ANION GAP 11.8 (8-16); CARBON DIOXIDE 25.5 mmol/L (21-32); CHLORIDE 108 mmol/L (98-107); CREATININE 1.1 mg/dL (0.6-1.3); GLUCOSE 112 mg/dL (74-106); POTASSIUM 4.3 mmol/L (3.5-5.1); SODIUM SERUM 141 mmol/L (136-145); UREA NITROGEN, BLOOD 22 mg/dL (7-18)
[2018-02-19 08:00] VITALS: BP 130/55
[2018-02-19] MEDS: glipiZIDE 10 MG TAB PO SCH (08:23)
[2018-02-19] MEDS: LACTOBACILLUS RHAMNOSUS GG 1 EACH CAP PO SCH (08:24)
[2018-02-19] MEDS: ASPIRIN 81 MG TAB.CHEW PO SCH (08:24)
[2018-02-19] MEDS: metFORMIN 850 MG TAB PO SCH ×2 (08:24→12:23)
[2018-02-19] MEDS: FERROUS SULFATE 325 MG TABEC PO SCH (08:24)
[2018-02-19] MEDS: amLODIPine 5 MG TAB PO SCH (08:25)
[2018-02-19] MEDS: ASCORBIC ACID 500 MG TAB PO SCH (08:25)
[2018-02-19] MEDS: SUCRALFATE 1 GM TAB PO SCH ×2 (08:27→12:53)
[2018-02-19] MEDS ORDERED: LACT10CA1 PO (08:33)
[2018-02-19] MEDS ORDERED: ROC2I IV (08:33)
--- NOTE | 2018-02-19 09:00 | NUR ---
PT LYING IN BED IN STABLE CONDITION. RESPIRATIONS EVEN AND UNLABORED. DUE ORDERED MEDICATIONS GIVEN. SAFETY MEASURES IN PLACE. CALL LIGHT AT BEDSIDE. WILL CONTINUE TO MONITOR.
[2018-02-19 11:30] VITALS: BP 130/55
--- NOTE | 2018-02-19 11:30 | NUR ---
PT LYING IN BED WATCHING TV. NO DISTRESS NOTED, CONDITION UNCHANGED. WILL CONTINUE TO MONITOR.
[2018-02-19 12:00] VITALS: BP 133/59
--- NOTE | 2018-02-19 12:08 | NUR ---
Hris Analyst Note: Per Anjali from [facility] , patient may go to room 21A at their facility today, accepting physician is , supportive employment case manager Aditi gonzales.
--- NOTE | 2018-02-19 12:08 | NUR ---
LATE ENTRY FOR 02/18/18 PER ALISHA SOARES AT [facility] FOR [facility] IS #[id number] AND THE SAME NUMBER TO BE USED FOR [facility] [facility].
[2018-02-19] MEDS: INSULIN LISPRO SLIDING SCALE 100 UNITS/ML VIAL SUBQ PRN (12:21)
--- NOTE | 2018-02-19 12:41 | NUR ---
CM NOTE PER ALIVIA [facility] PH# [phone], PATIENT WILL BE PICKED UP AT 1430 TIME TODAY [facility]. CHRIST BEARD AWARE.
--- NOTE | 2018-02-19 13:30 | NUR ---
CALLED [facility]. GAVE REPORT FOR TRANSFER TO KISHA LAMBERT. ALL OF PETRA'S QUESTIONS WERE ANSWERED AT TIME OF CALL, PETRA VERBALIZED UNDERSTANDING. PT WILL BE HOUSED IN RM 21 BED B. FACILITY AWAITING FOR PT ARRIVAL AROUND 1430.
--- NOTE | 2018-02-19 14:45 | NUR ---
PT DISCHARGED TO [facility]. ALL DISCHARGE PAPERWORK SIGNED.PT GIVEN DISCHARGE INSTRUCTIONS IN PREFERRED LANGUAGE WELSH. PT VERBALIZED UNDERSTANDING OF DISCHARGE INSTRUCTIONS. ANSWERED ALL PT QUESTIONS REGARDING TRANSFER. RESPIRATIONS EVEN AND UNLABORED. IV LEFT FA, INTACT, PATENT. PT TRANSPORTED VIA [facility].
== END 2018-02-19 14:45 | DRG 871 ==
LOC: MED 13:31 → MTU 17:14
PROVIDERS: ADMIT General Practice; ATTEND General Practice
DX: A41.9 Sepsis, unspecified organism (principal); G93.41 Metabolic encephalopathy; E43 Unspecified severe protein-calorie malnutrition; I50.43 Acute on chronic combined systolic (congestive) and diastolic (congestive) heart failure; N39.0 Urinary tract infection, site not specified; E11.65 Type 2 diabetes mellitus with hyperglycemia; E78.5 Hyperlipidemia, unspecified; E83.42 Hypomagnesemia; D50.9 Iron deficiency anemia, unspecified; M19.012 Primary osteoarthritis, left shoulder; M19.011 Primary osteoarthritis, right shoulder; K21.9 Gastro-esophageal reflux disease without esophagitis; M94.0 Chondrocostal junction syndrome [Tietze]; I25.10 Atherosclerotic heart disease of native coronary artery without angina pectoris; G89.29 Other chronic pain; I70.203 Unspecified atherosclerosis of native arteries of extremities, bilateral legs; I11.0 Hypertensive heart disease with heart failure; I16.0 Hypertensive urgency; E11.51 Type 2 diabetes mellitus with diabetic peripheral angiopathy without gangrene; Z88.5 Allergy status to narcotic agent; Z79.84 Long term (current) use of oral hypoglycemic drugs; Z79.899 Other long term (current) drug therapy; Z90.49 Acquired absence of other specified parts of digestive tract; Z95.1 Presence of aortocoronary bypass graft; Z98.42 Cataract extraction status, left eye; Z79.82 Long term (current) use of aspirin; Z91.14 Patient's other noncompliance with medication regimen; Z68.34 Body mass index [BMI] 34.0-34.9, adult
CPT/HCPCS: 36415; 70450; 71045; 73502; 80048; 80053; 80305; 81001; 82150; 82607; 82728; 82746; 82948; 83036; 83540; 83690; 83735; 83880; 84100; 84436; 84443; 84484; 85025; 85045; 85610; 85730; 87040; 87081; 87086; 93005; 93925; 93970; 96361; 96374; 97110; 97116; 97530; 99285; C1758; J0696; J1644; J1885; J2270; J2405; J2916; J3475; J7030; J7060; Q0092

== ENCOUNTER 2018-11-03 15:16 | Inpatient (IN) | payer MEDICARE, OTHER ==
[~2018-11-03] VITALS: Ht 157.5 cm; Wt 103.4 kg
[~2018-11-03 15:16] MED LIST: AMLO2.5T PO; ASPI-1718 PO; ATOR40TA PO; GLIP10TA3 PO; LACT10CA1 PO; METF1000 PO; METO25TE2 PO; ROC2I IV; SUCR1TAB35 PO
[2018-11-03 15:18] VITALS: BP 137/62
--- NOTE | 2018-11-03 15:25 | NUR ---
mame from [facility] for evaluation of generalized weakness x2 weeks worsening today, also dx with UTI, sent by Dr. Resendiz. pt denies sob, n/v. aao x4, perrla, brisk 3mm, full clear speech, even and unlabored breathing. equal lily strength to upper and lower extremities. pt placed on full classroom monitor.
[2018-11-03] MEDS ORDERED: CLON0.1T42 PO (15:35)
[2018-11-03] MEDS ORDERED: CALC-1093 PO (15:35)
[2018-11-03] MEDS ORDERED: ACET-2619 PO (15:35)
[2018-11-03] MEDS ORDERED: NACL 0.9% 1,000 ML IV SCH (16:23)
--- NOTE | 2018-11-03 16:25 | NUR ---
DR ELIZONDO AT BEDSIDE FOR PT EVAL
[2018-11-03 17:10] LABS: BASOPHILS % (AUTO) 0.2 % (0.0-2.0); EOSINOPHILS # (AUTO) 0.3 K/uL (0-0.4); EOSINOPHILS % (AUTO) 2.5 % (0.0-4.0); HEMATOCRIT 28.2 % (36-48); HEMOGLOBIN 8.4 g/dL (12.0-16.0); MEAN CORPUSCULAR HEMOGLOBIN 20 pg (27-31); MEAN CORPUSCULAR HGB CONC 30 g/dL (33-37); MEAN CORPUSCULAR VOLUME 68.3 fL (80-94); MONOCYTES # (AUTO) 0.8 K/uL (0.8-1.0); MONOCYTES % (AUTO) 7.4 % (1.7-9.3); NEUTROPHILS % (AUTO) 62.9 % (42.2-75.2); PLATELET COUNT (AUTO) 394 K/uL (140-450); RED BLOOD CELL COUNT(AUTO) 4.13 MIL/uL (4.20-5.40); RED CELL DISTRIBUTION WIDTH 18.1 % (11.6-13.7); WHITE BLOOD COUNT (AUTO) 11.1 K/uL (4.8-10.8)
[2018-11-03 17:26] LABS: ALBUMIN 2.5 g/dL (3.4-5.0); ANION GAP 15.4 (8-16); ASPARTATE AMINOTRANSFERASE 13 U/L (15-37); CARBON DIOXIDE 24.8 mmol/L (21-32); CHLORIDE 101 mmol/L (98-107); CREATININE 1.1 mg/dL (0.6-1.3); GLUCOSE 307 mg/dL (74-106); POTASSIUM 4.2 mmol/L (3.5-5.1); SODIUM SERUM 137 mmol/L (136-145); TOTAL BILIRUBIN 0.2 mg/dL (0.0-1.0); UREA NITROGEN, BLOOD 22 mg/dL (7-18)
[2018-11-03] MEDS ORDERED: ONDANSETRON 4 MG/2 ML VIAL IM/IVP PRN (18:05)
[2018-11-03] MEDS ORDERED: HYDROcodone/APAP 5/325 MG 1 TAB TAB PO PRN (18:05)
[2018-11-03] MEDS ORDERED: DOCUSATE SODIUM 100 MG GELCAP PO PRN (18:05)
[2018-11-03] MEDS ORDERED: ACETAMINOPHEN 325 MG TAB PO PRN ×2 (18:05→19:55)
[2018-11-03] MEDS ORDERED: DEXTROSE 50% 50 ML SYR IVP PRN (18:30)
--- NOTE | 2018-11-03 18:32 | NUR ---
MULTIPLE IV INITIATION ATTEMPTS. CHARGE NURSE MADE AWARE.
--- NOTE | 2018-11-03 18:33 | NUR ---
URINE OBTAINED VIA CATHETER USING STERILE TECHNIQUE. PT TOLERATED WELL. URINE OUTPUT OF 200 ML. YELLOW, HAZY URINE NOTED.
--- NOTE | 2018-11-03 19:00 | NUR ---
PT SITTING UP RIGHT EATING DINNER AT THIS TIME. PT CONVERSATING APPROPRIATELY WITH DR ANTHONY. NO SIGNS AND SYMPTOMS OF DISTRESS NOTED.
[2018-11-03 19:05] LABS: APPEARANCE,URINE CLOUDY (CLEAR); BILIRUBIN,URINE NEGATIVE (NEGATIVE); BLOOD, URINE 1+ (NEGATIVE); COLOR,URINE YELLOW (YELLOW); LEUKOCYTE ESTERASE ,URINE 3+ (NEGATIVE); NITRITE, URINE POSITIVE (NEGATIVE); UGLUCOSE 2+ (NEGATIVE)
[2018-11-03 19:10] LABS: BARBITURATE, URINE NEG. ng/ml (NEG <=200); BENZODIAZEPINE, URINE NEG. ng/mL (NEG <=200); CANNABINOID, URINE NEG. ng/mL (NEG <=50); COCAINE, URINE NEG. ng/mL (NEG <=300); OPIATE, URINE NEG. ng/mL (NEG <=2000); PHENCYCLIDINE SCREEN,URINE NEG. ng/mL (NEG <=25)
[2018-11-03 19:30] VITALS: BP 123/66
--- NOTE | 2018-11-03 19:30 | NUR ---
RECEIVED BEDSIDE REPORT FROM PATIENT RELATIONS COORDINATOR. PT IS AAOX4 ON ROOM AIR. RESPIRATIONS ARE EQUAL AND UNLABORED. PT CAME IN [facility] AND 3 NURSES TRANSFERRED PT TO UNIT BED. SKIN IS INTACT. IV ON LEFT HAND 24G NS BOLUS INFUSING. PT IS INCONTINENT AND BEDREST. COMING FROM [facility]. VS: 118/68 HR 100, 98.0 TEMP, 18,98% RA.PLAN OF CARE DISCUSSED WITH PATIENT. ALLERGY BAND ON AND FALL BAND ON. CALL LIGHT IS WITHIN REACH. WILL ROUND FREQUENTLY.
--- NOTE | 2018-11-03 19:30 | NUR ---
Patient will be admitted to care of DR PENG. Admited to MED SURG. Will go to ibup762 A. Belongings list completed. Report to KISHA APARICIO.
[2018-11-03 19:50] LABS: MAGNESIUM 1.5 mg/dL (1.8-2.4); THYROID STIMULATING HORMONE 4.03 uIU/mL (0.34-3.74)
[2018-11-03 19:53] LABS: WBC,URINE 80-100 /HPF (0-5)
[2018-11-03] MEDS ORDERED: cloNIDine 0.1 MG TAB PO PRN (19:55)
[2018-11-03] MEDS ORDERED: glipiZIDE 10 MG TAB PO SCH (21:00)
[2018-11-03] MEDS ORDERED: cefTRIAXone 1,000 MG VIAL ONE (21:40)
[2018-11-03] MEDS: METOPROLOL SUCCINATE 50 MG TABER PO SCH (21:46)
[2018-11-03] MEDS: BLOOD GLUCOSE MONITORING 1 DEV DEV FS SCH (21:46)
[2018-11-03] MEDS: metFORMIN 500 MG TAB PO SCH (21:46)
[2018-11-03] MEDS: NACL 0.9% 1,000 ML IV SCH (21:46)
--- NOTE | 2018-11-03 21:46 | NUR ---
SCHEDULED MEDICATIONS WERE GIVEN PT TOLERATED WELL. BLOOD SUGAR IS 319 COVERAGE GIVEN PER ORDERS. WILL CONTINUE TO MONITOR.
[2018-11-03] MEDS: INSULIN LISPRO SLIDING SCALE 100 UNITS/ML VIAL SUBQ PRN (21:47)
[2018-11-03] MEDS ORDERED: MAG SULF 2000 MG/WATER PREMIX 50 ML IV SCH (22:15)
[2018-11-03] MEDS ORDERED: SODIUM FERRIC GLUCONATE 125 MG in NACL 0.9% 100 ML IV SCH (22:30)
--- NOTE | 2018-11-03 23:13 | NUR ---
FERRLECIT NOW INFUSING PER ORDERS. ALL NEEDS MET AT THIS TIME. CALL LIGHT IS WITHIN REACH. WILL CONTINUE TO MONITOR.
[2018-11-03] MEDS ORDERED: SODIUM FERRIC GLUCONATE 12.5 MG/ML AMP IV ONE (23:18)
[2018-11-04] MEDS ORDERED: CALCIUM CARBONATE 500 MG TAB.CHEW PO PRN (00:15)
--- NOTE | 2018-11-04 00:30 | NUR ---
VITAL SIGNS ARE WITHIN NORMAL LIMITS. PT SITTING IN BED COMFORTABLY EATING JELLO. CALL LIGHT IS WITHIN REACH. WILL CONTINUE TO MONITOR
--- NOTE | 2018-11-04 01:45 | NUR ---
IV WAS ACCIDENTLY REMOVED WHILE PT WAS ASLEEP. IV IS INTACT. NEW IV BEGAN ON R WRIST 24G. IVF NOW INFUSING PER ORDERS. PT TOLERATED WELL. WILL CONTINUE TO MONITOR.
--- NOTE | 2018-11-04 02:00 | NUR ---
PT AWAKE NO S/S OF DISTRESS. CALL LIGHT IS WITHIN REACH. WILL CONTINUE TO MONITOR.
--- NOTE | 2018-11-04 04:05 | NUR ---
PATIENT IS SITTING IN BED EATING NIGHT SNACK. CALL LIGHT IS WITHIN REACH. WILL CONTINUE TO MONITOR.
--- NOTE | 2018-11-04 05:14 | NUR ---
PATIENT REFUSED BLOOD DRAW DR AWARE. NO S/S OF DISTRESS. WILL CONTINUE TO MONITOR.
[2018-11-04] MEDS: BLOOD GLUCOSE MONITORING 1 DEV DEV FS SCH ×4 (06:15→20:48)
--- NOTE | 2018-11-04 06:16 | NUR ---
BLOOD SUGAR IS 191 PT REFUSING INSULIN STATES ONLY IF ITS ABOVE 200. EDUCATED PATIENT ON IMPORTANCE OF STRICT BLOOD SUGAR CONTROL AND DOCTOR ORDERED COVERAGE IF 151 OR ABOVE BUT STILL REFUSING. EDUCATED ON SIDE EFFECTS OF POOR CONTROL. PT VERBALIZED UNDERSTANDING. WILL CONTINUE TO MONITOR.
[2018-11-04] MEDS: glipiZIDE 10 MG TAB PO SCH ×2 (07:25→17:47)
--- NOTE | 2018-11-04 07:29 | NUR ---
GAVE BEDSIDE REPORT TO JERRY BEARD. PT IN STABLE CONDITION
[2018-11-04 08:00] VITALS: BP 155/58
--- NOTE | 2018-11-04 08:00 | NUR ---
READ PT'S CHART. PT EATING BREAKFAST AT BEDSIDE, US TECH DOING US VENOUS/ARTERIAL BLE. OCCULT BLOOD SIGN OUTSIDE DOOR. NS RUNNING AT 60CC/HR THROUGH RIGHT FOREARM 24. PT A/O X4, WILL CONTINUE TO MONITOR
[2018-11-04 08:16] LABS: T4 (THYROXINE) 6.9 ug/dL (4.5-12.0)
[2018-11-04] MEDS: SUCRALFATE 1 GM TAB PO SCH ×3 (08:38→17:47)
[2018-11-04] MEDS: ASCORBIC ACID 500 MG TAB PO SCH (08:38)
[2018-11-04] MEDS: ASPIRIN 81 MG TAB.CHEW PO SCH (08:38)
[2018-11-04] MEDS: amLODIPine 5 MG TAB PO SCH (08:38)
[2018-11-04] MEDS: FERROUS SULFATE 325 MG TABEC PO SCH ×3 (08:38→17:47)
[2018-11-04] MEDS: GABAPENTIN 300 MG CAP PO SCH ×3 (08:39→17:47)
[2018-11-04] MEDS ORDERED: SUCRALFATE 1 GM TAB PO SCH ×2 (09:00)
--- NOTE | 2018-11-04 09:13 | NUR ---
PATIENT HAS BEEN SCREENED AND CATEGORIZED HIGH NUTRITION RISK. PATIENT WILL BE SEEN WITHIN 1-2 DAYS OF ADMISSION. 11/04/18-11/05/[address]
[2018-11-04] MEDS: NACL 0.9% 1,000 ML IV SCH ×2 (10:44→22:14)
--- NOTE | 2018-11-04 10:51 | NUR ---
PT CURRENTLY WORKING ON PT. PT REPOSITIONED AND CHANGED. DENIES PAIN, ON RA IN NO RESP DISTRESS. WILL CONTINUE TO MONITOR
[2018-11-04 12:09] LABS: FOLIC ACID 13.8 ng/mL (>3.0)
[2018-11-04] MEDS: INSULIN LISPRO SLIDING SCALE 100 UNITS/ML VIAL SUBQ PRN ×2 (12:20→17:58)
--- NOTE | 2018-11-04 14:39 | NUR ---
PT RESTING COMFORTABLY, ATE LUNCH, ON RA IN NO RESP DISTRESS, WILL CONTINUE TO MONITOR
[2018-11-04 16:01] LABS: BASOPHILS # (AUTO) 0.1 K/uL (0.00-0.22); BASOPHILS % (AUTO) 0.6 % (0.0-2.0); EOSINOPHILS # (AUTO) 0.3 K/uL (0-0.4); EOSINOPHILS % (AUTO) 2.6 % (0.0-4.0); HEMATOCRIT 25.7 % (36-48); HEMOGLOBIN 7.6 g/dL (12.0-16.0); LYMPHOCYTES # (AUTO) 2.6 K/uL (2.5-16.5); LYMPHOCYTES % (AUTO) 23.3 % (20.5-51.1); MEAN CORPUSCULAR HEMOGLOBIN 20 pg (27-31); MEAN CORPUSCULAR HGB CONC 30 g/dL (33-37); MEAN CORPUSCULAR VOLUME 67.5 fL (80-94); MONOCYTES # (AUTO) 0.8 K/uL (0.8-1.0); MONOCYTES % (AUTO) 7.5 % (1.7-9.3); NEUTROPHILS # (AUTO) 7.4 K/uL (1.8-7.7); PLATELET COUNT (AUTO) 377 K/uL (140-450); RED CELL DISTRIBUTION WIDTH 18.1 % (11.6-13.7); WHITE BLOOD COUNT (AUTO) 11.2 K/uL (4.8-10.8)
[2018-11-04] MEDS ORDERED: INSULIN LANTUS 100 UNITS/ML 10 ML VIAL SUBQ ONE (16:10)
[2018-11-04 16:29] LABS: CARBON DIOXIDE 24.5 mmol/L (21-32); CHLORIDE 104 mmol/L (98-107); CREATININE 1.1 mg/dL (0.6-1.3); GLUCOSE 230 mg/dL (74-106); POTASSIUM 4.5 mmol/L (3.5-5.1); SODIUM SERUM 139 mmol/L (136-145); UREA NITROGEN, BLOOD 20 mg/dL (7-18)
[2018-11-04 16:47] VITALS: BP 125/56
--- NOTE | 2018-11-04 18:38 | NUR ---
BLOOD SUGAR AT 1630 WAS 202. DINNER HAS NOT BEEN PASSED OUT YET. DID NOT GIVE HUMALOG. SCHEDULE LANTUS 5 UNITS TO BE GIVEN AT 1700 ALONG WITH GLIPIZIDE. RECHECKED SUGAR AROUND 1700 AND IT WAS 173. GAVE 2 UNITS HUMALOG INSULIN PER HUMALOG SLIDING SCALE ALONG WITH GLIPIZIDE. PT EATING DINNER.
--- NOTE | 2018-11-04 19:22 | NUR ---
GAVE BED SIDE REPORT. HERRERA ELLINGTON
--- NOTE | 2018-11-04 19:23 | NUR ---
RECEIVED BEDSIDE REPORT FROM DAY RN. PT IS AAOX4 ON ROOM AIR. RESPIRATIONS ARE EQUAL AND UNLABORED. SKIN IS INTACT. IV ON LEFT WRIST 24G NS BOLUS INFUSING. PT IS INCONTINENT AND BEDREST. COMING FROM [facility]. ALLERGY BAND ON AND FALL BAND ON. CALL LIGHT IS WITHIN REACH. PLAN OF CARE DISCUSSED WITH PATIENT. WILL ROUND FREQUENTLY.
[2018-11-04] MEDS: metFORMIN 500 MG TAB PO SCH (20:43)
[2018-11-04] MEDS: METOPROLOL SUCCINATE 50 MG TABER PO SCH (20:44)
--- NOTE | 2018-11-04 20:53 | NUR ---
VITAL SIGNS ARE WITHIN NORMAL LIMITS. PATIENT IS HEAVILY ASLEEP. WOKE HER UP BY NAME AND SHAKING ON SHOULDER. PATIENT ORIENTED AND ANSWERING QUESTIONS. BLOOD SUGAR IS 195 WILL HOLD INSULIN AND RECHECK IN AM. ADMINISTERED SIDRA MEDICATION PT TOLERATED WELL. THEN WENT RIGHT BACK TO SLEEP. SAFETY MEASURES ARE IN PLACE. CALL LIGHT IS WITHIN REACH AND BED ALARM ON. WILL CONTINUE TO MONITOR.
--- NOTE | 2018-11-04 22:06 | NUR ---
PATIENT IS SLEEPING COMFORTABLY IN BED. RESPIRATIONS ARE EQUAL AND UNLABORED. BED ALARM ON AND LOWEST POSITION.CALL LIGHT IS WITHIN REACH. WILL CONTINUE TO MONITOR.
[2018-11-04 23:08] VITALS: BP 127/81
--- NOTE | 2018-11-04 23:10 | NUR ---
VITAL SIGNS ARE WITHIN NORMAL LIMITS. NO S/S OF DISTRESS. WILL CONTINUE TO MONITOR.
--- NOTE | 2018-11-05 02:30 | NUR ---
PATIENT IS SLEEPING COMFORTABLY IN BED. NO S/S OF DISTRESS. CALL LIGHT IS WITHIN REACH.
--- NOTE | 2018-11-05 04:00 | NUR ---
GAVE PATIENT A CHOCOLATE PUDDING PER REQUEST. PT SITTING UP IN BED EATING. CALL LIGHT IS WITHIN REACH.
[2018-11-05] MEDS: BLOOD GLUCOSE MONITORING 1 DEV DEV FS SCH ×4 (06:27→21:13)
[2018-11-05] MEDS: glipiZIDE 10 MG TAB PO SCH ×2 (06:32→17:24)
--- NOTE | 2018-11-05 06:32 | NUR ---
SCHEDULED MEDICATION GIVEN WELL 2U OF INSULIN PER PROTOCOL FOR BG 171.
[2018-11-05] MEDS: INSULIN LISPRO SLIDING SCALE 100 UNITS/ML VIAL SUBQ PRN ×3 (06:36→21:30)
[2018-11-05] MEDS ORDERED: HEPARIN PER PHARMACY MC PRN (06:40)
[2018-11-05] MEDS ORDERED: hePARIN / DEXT 5% PREMIX 250 ML IV SCH ×2 (06:40→08:00)
--- NOTE | 2018-11-05 07:25 | NUR ---
GAVE BEDSIDE REPORT TO DAY SHIFT. ENDORSED IN STABLE CONDITION.
--- NOTE | 2018-11-05 07:26 | NUR ---
RECEIVED REPORT FROM SR. DIRECTOR PRODUCT MANAGEMENT NURSE FOR CONTINUITY OF CARE. PT IN STABLE CONDITION. RESPIRATIONS EVEN AND UNLABORED. IV INTACT AND PATENT. BED IN LOW POSITION. BED ALARM ON. CALL LIGHT AT BEDSIDE. WILL CONTINUE TO MONITOR.
[2018-11-05 08:00] VITALS: BP 131/53
[2018-11-05] MEDS: FERROUS SULFATE 325 MG TABEC PO SCH ×3 (09:03→17:24)
[2018-11-05] MEDS: ASPIRIN 81 MG TAB.CHEW PO SCH (09:03)
[2018-11-05] MEDS: ATORVASTATIN 20 MG TAB PO SCH (09:04)
[2018-11-05] MEDS: ASCORBIC ACID 500 MG TAB PO SCH (09:04)
[2018-11-05] MEDS: GABAPENTIN 300 MG CAP PO SCH ×3 (09:04→17:24)
[2018-11-05] MEDS: SUCRALFATE 1 GM TAB PO SCH ×3 (09:05→17:24)
[2018-11-05] MEDS: amLODIPine 5 MG TAB PO SCH (09:05)
[2018-11-05] MEDS ORDERED: ENOXAPARIN 100 MG/ML SYR SUBQ SCH ×2 (09:21→21:00)
--- NOTE | 2018-11-05 10:02 | NUR ---
INFORMED PT THAT AN IV 20G IS NEEDED FOR CT WITH CONTRAST. PT STATED TO COME BACK AT 1100 TO SEE IF AN IV CAN BE PLACED. CANDY DEPARTMENT MANAGER NOTIFIED. WILL FOLLOW UP.
[2018-11-05 11:14] LABS: EOSINOPHILS # (AUTO) 0.4 K/uL (0-0.4); MEAN CORPUSCULAR HGB CONC 30 g/dL (33-37); MONOCYTES # (AUTO) 0.8 K/uL (0.8-1.0)
[2018-11-05 11:16] LABS: ANION GAP 13.8 (8-16); CARBON DIOXIDE 26.4 mmol/L (21-32); CHLORIDE 106 mmol/L (98-107); CREATININE 1.1 mg/dL (0.6-1.3); GLUCOSE 260 mg/dL (74-106); POTASSIUM 4.2 mmol/L (3.5-5.1); SODIUM SERUM 142 mmol/L (136-145); UREA NITROGEN, BLOOD 20 mg/dL (7-18)
[2018-11-05 11:20] LABS: BASOPHILS # (AUTO) 0.1 K/uL (0.00-0.22); BASOPHILS % (AUTO) 0.6 % (0.0-2.0); EOSINOPHILS % (AUTO) 3.9 % (0.0-4.0); HEMATOCRIT 24.8 % (36-48); HEMOGLOBIN 7.4 g/dL (12.0-16.0); LYMPHOCYTES # (AUTO) 2.6 K/uL (2.5-16.5); LYMPHOCYTES % (AUTO) 24.9 % (20.5-51.1); MEAN CORPUSCULAR HEMOGLOBIN 21 pg (27-31); MEAN CORPUSCULAR VOLUME 68.9 fL (80-94); MONOCYTES % (AUTO) 7.5 % (1.7-9.3); NEUTROPHILS # (AUTO) 6.6 K/uL (1.8-7.7); NEUTROPHILS % (AUTO) 63.1 % (42.2-75.2); PLATELET COUNT (AUTO) 361 K/uL (140-450); RED CELL DISTRIBUTION WIDTH 18.3 % (11.6-13.7); WHITE BLOOD COUNT (AUTO) 10.4 K/uL (4.8-10.8)
--- NOTE | 2018-11-05 12:52 | NUR ---
PT VOMITED ON GOWN, DUE TO DIFFICULTY SWALLOWING. SWALLOW EVALUATION REQUEST ALREADY INITIATED. CHANGED AND CLEANED PT AT THIS TIME. BED IN LOW POSITION. CALL LIGHT AT BEDSIDE. WILL CONTINUE TO MONITOR.
--- NOTE | 2018-11-05 14:24 | NUR ---
PT LYING IN BED SLEEPING AT THIS TIME. PT IN STABLE CONDITION. RESPIRATIONS EVEN AND UNLABORED. BED IN LOW POSITION. BED ALARM ON. CALL LIGHT AT BEDSIDE. WILL CONTINUE TO MONITOR.
--- NOTE | 2018-11-05 14:27 | NUR ---
11/05/18 RD INITIAL ASSESSMENT COMPLETED PLEASE REFER TO NUTRITION ASSESSMENT UNDER CARE ACTIVITY FOR ESTIMATED NUTRITIONAL NEEDS. 1.CONTINUE CCHO 60 GM, CARDIAC DIET TOLERATED 2.PROVIDED DIABETES EDUCATION TO PATIENT, DISCUSSED PORTION SIZES FOR CARBOHYDRATES FOR CCHO DIET 3. RD TO FOLLOW-UP 3-5 DAYS, MODERATE RISK YASMEEN ROSS RD
[2018-11-05 16:00] VITALS: BP 126/72
--- NOTE | 2018-11-05 16:34 | NUR ---
PT LYING IN BE IN STABLE CONDITION. GAVE ICE CHIPS PER PT REQUEST. BED IN LOW POSITION. BED ALARM ON. CALL LIGHT AT BEDSIDE.
--- NOTE | 2018-11-05 17:46 | NUR ---
CONTACTED PICC LINE SERVICE, SPOKE WITH SHANNAN. STATED SHE WILL GIVE MARY-PICC LINE RN A CALL. THEN THEY WILL CALL BACK FOR ETA. NAYAN-RN ASSIGNED MADE AWARE.
--- NOTE | 2018-11-05 18:42 | NUR ---
PICC LINE ORDERED. PT WANTS TO SPEAK WITH DOCTOR AGAIN BEFORE SIGNING CONSENT FORM. DR. MARIN IS AWARE.
[2018-11-05] MEDS ORDERED: KETOROLAC 15 MG/ML VIAL IM PRN (19:00)
--- NOTE | 2018-11-05 19:05 | NUR ---
MARY PICC LINE NURSE TO BE CALLED WHEN CONSENT IS SIGNED, . ENDORSE TO SCRATCH FINISHER NURSE.
--- NOTE | 2018-11-05 19:10 | NUR ---
GAVE REPORT TO DOCUMENT CONTROL MANAGER NURSE EDILMA FOR CONTINUITY OF CARE. PT IN STABLE CONDITION.
--- NOTE | 2018-11-05 19:30 | NUR ---
ASSUMED CARE OF PATIENT, AWAKE, ALERT AND ORIENTED. NO DISTRESS OR COMPLAINS. EATING WELL. CALL LIGHT WITHIN REACH.
[2018-11-05] MEDS: NACL 0.9% 1,000 ML IV SCH (19:32)
[2018-11-05] MEDS ORDERED: INSULIN LANTUS 100 UNITS/ML 10 ML VIAL SUBQ SCH (21:00)
--- NOTE | 2018-11-05 21:00 | NUR ---
RESIDENT MD AT BEDSIDE TO TAKE TO PATIENT REGARDING PICC LINE INSERTION, STILL WANT TO THINK ABOUT IT TILL THE MORNING, PICC NURSE MADE AWARE. DUE MEDS GIVEN. HS SNACK GIVEN. CALL LIGHT WITHIN REACH.
[2018-11-05] MEDS: metFORMIN 500 MG TAB PO SCH (21:26)
[2018-11-05] MEDS: METOPROLOL SUCCINATE 50 MG TABER PO SCH (21:26)
--- NOTE | 2018-11-05 22:02 | NUR ---
HS CARE BY ASSOCIATE PRODUCT MANAGER. REPOSITIONED. CALL LIGHT WITHIN REACH.
[2018-11-06 00:06] VITALS: BP 138/54
--- NOTE | 2018-11-06 00:08 | NUR ---
ASLEEP NO COMPLAINS. VITAL SIGNS STABLE. AFEBRILE. CALL LIGHT WITHIN REACH.
--- NOTE | 2018-11-06 02:00 | NUR ---
ASLEEP NO COMPLAINS. CALL LIGHT WITHIN REACH.
--- NOTE | 2018-11-06 05:00 | NUR ---
SPEECH LANGUAGE PATHOLOGIST AT BEDSIDE, PERICARE AND REPOSITIONED. NO DISTRESS CALL LIGHT WITHIN REACH. Addendum: 11/06/18 at 0519 by Tessa Adame RN WRONG ENTRY.
--- NOTE | 2018-11-06 05:17 | NUR ---
ASSISTED LIVING EXECUTIVE DIRECTOR AT BEDSIDE. PERICARE DONE AND REPOSITIONED. HEAD PAPER TESTER AT BEDSIDE FOR BLOOD DRAW. NO COMPLAINS. CALL LIGHT WITHIN REACH.
[2018-11-06] MEDS: BLOOD GLUCOSE MONITORING 1 DEV DEV FS SCH ×2 (05:45→11:30)
[2018-11-06 06:14] LABS: BASOPHILS # (AUTO) 0.2 K/uL (0.00-0.22); BASOPHILS % (AUTO) 1.2 % (0.0-2.0); EOSINOPHILS # (AUTO) 0.4 K/uL (0-0.4); EOSINOPHILS % (AUTO) 3.3 % (0.0-4.0); HEMATOCRIT 24.8 % (36-48); HEMOGLOBIN 7.3 g/dL (12.0-16.0); LYMPHOCYTES # (AUTO) 4.8 K/uL (2.5-16.5); LYMPHOCYTES % (AUTO) 35.5 % (20.5-51.1); MEAN CORPUSCULAR HEMOGLOBIN 21 pg (27-31); MEAN CORPUSCULAR HGB CONC 30 g/dL (33-37); MEAN CORPUSCULAR VOLUME 69.4 fL (80-94); MONOCYTES # (AUTO) 0.9 K/uL (0.8-1.0); MONOCYTES % (AUTO) 6.8 % (1.7-9.3); NEUTROPHILS # (AUTO) 7.2 K/uL (1.8-7.7); NEUTROPHILS % (AUTO) 53.2 % (42.2-75.2); PLATELET COUNT (AUTO) 360 K/uL (140-450); RED BLOOD CELL COUNT(AUTO) 3.57 MIL/uL (4.20-5.40); RED CELL DISTRIBUTION WIDTH 18.4 % (11.6-13.7); WHITE BLOOD COUNT (AUTO) 13.4 K/uL (4.8-10.8)
[2018-11-06 06:35] LABS: ANION GAP 13.7 (8-16); CARBON DIOXIDE 24.2 mmol/L (21-32); CHLORIDE 108 mmol/L (98-107); GLUCOSE 109 mg/dL (74-106); POTASSIUM 3.9 mmol/L (3.5-5.1); SODIUM SERUM 142 mmol/L (136-145); UREA NITROGEN, BLOOD 17 mg/dL (7-18)
[2018-11-06] MEDS: glipiZIDE 10 MG TAB PO SCH (06:38)
--- NOTE | 2018-11-06 06:57 | NUR ---
CONSENT SIGNED FOR PICC LINE INSERTION. LEFT MESSAGE TO MARY PICC LINE RN. WILL ENDORSE TO DAY SHIFT RN.
--- NOTE | 2018-11-06 07:14 | NUR ---
ENDORSED CARE AT BEDSIDE WITH ASHLEE BEARD, PATIENT IN STABLE CONDITION.
--- NOTE | 2018-11-06 07:15 | NUR ---
RECEIVED REPORT FROM ENVIRONMENTAL HEALTH AIDE NURSE EDILMA FOR CONTINUITY OF CARE. PT IN STABLE CONDITION. RESPIRATIONS EVEN AND UNLABORED. IV INTACT AND PATENT. SAFETY MEASURES IN PLACE. CALL LIGHT AT BEDSIDE. BED IN LOW POSITION. BED ALARM ON. WILL CONTINUE TO MONITOR.
[2018-11-06 08:00] VITALS: BP 136/48
--- NOTE | 2018-11-06 08:20 | NUR ---
DEDE HERNANDEZ PICC LINE NURSE TO CANCEL PICC LINE INSERTION. PT WILL BE SEEN IN OUT PATIENT, [facility].
--- NOTE | 2018-11-06 08:28 | NUR ---
WENT TO [facility] TO RETRIEVE OATMEAL PER PT REQUEST. PT IN STABLE CONDITION.
[2018-11-06] MEDS ORDERED: ATOR20TA40 PO (08:53)
[2018-11-06] MEDS ORDERED: GABA-638 PO (08:56)
[2018-11-06] MEDS ORDERED: FER325 PO (08:56)
[2018-11-06] MEDS ORDERED: RIVA15TA1 PO (08:56)
[2018-11-06] MEDS ORDERED: CEFT1VIA7 IJ (08:58)
[2018-11-06] MEDS ORDERED: CLINICAL MONITORING MC SCH (09:00)
[2018-11-06] MEDS ORDERED: RIVAROXABAN 15 MG TAB PO SCH (09:00)
[2018-11-06] MEDS ORDERED: LACT10CA1 PO (09:02)
--- NOTE | 2018-11-06 09:15 | NUR ---
CONTACTED [facility] AT [phone], SPOKE TO DARWIN SUTTON, BUSINESS OFFICE ASSOCIATE. INFORMED HER OF PATIENT'S DC PLAN FOR TO DAY. SHE PROVIDED ME WITH ROOM [address] LANG[address]. SHE ALSO PROVIDED ME WITH [facility] [phone] FOR TRANSPORTATION. CALLED [facility], SPOKE TO ALIVIA, [id number] INSTRUCTOR FLYING WAS SET UP. PRIMARY RN NAYAN AND CHARGE NURSE JERRY MADE AWARE.
[2018-11-06] MEDS: ASPIRIN 81 MG TAB.CHEW PO SCH (09:24)
[2018-11-06] MEDS: SUCRALFATE 1 GM TAB PO SCH ×2 (09:25→13:14)
[2018-11-06] MEDS: ASCORBIC ACID 500 MG TAB PO SCH (09:26)
[2018-11-06] MEDS: ATORVASTATIN 20 MG TAB PO SCH (09:26)
[2018-11-06] MEDS: FERROUS SULFATE 325 MG TABEC PO SCH ×2 (09:26→13:13)
[2018-11-06] MEDS: GABAPENTIN 300 MG CAP PO SCH ×2 (09:27→13:14)
[2018-11-06] MEDS: amLODIPine 5 MG TAB PO SCH (09:28)
--- NOTE | 2018-11-06 09:35 | NUR ---
GAVE ORDERED DUE MEDICATIONS AT THIS TIME. PT TOLERATED WELL. RESPIRATIONS EVEN AND UNLABORED. SITTER AT BEDSIDE. BED IN LOW POSITION. WILL CONTINUE TO MONITOR.
--- NOTE | 2018-11-06 11:50 | NUR ---
GAVE REPORT TO CASEY STAFF NURSE AT [facility] FOR CONTINUITY OF CARE AFTER TRANSFER. ALL QUESTIONS ANSWERED AT THIS TIME.
--- NOTE | 2018-11-06 13:03 | NUR ---
PT CHANGED AND CLEANED FOR PREPARATION OF TRANSPORT TO [facility]. PT TOLERATED WELL. WILL CONTINUE TO MONITOR. BED IN LOW POSITION. CALL LIGHT AT BEDSIDE. BED ALARM ON.
--- NOTE | 2018-11-06 13:24 | NUR ---
PATIENT'S DAUGHTER SHELLY ARMSTRONG AT [phone] INFORMED OF BEING DC BACK TO [facility]. AGREEABLE OF TRANSFER. REQUESTED TO BE TRANSFERRED TO PRIMARY RN FOR UPDATES.
--- NOTE | 2018-11-06 14:05 | NUR ---
GAVE DISCHARGE INSTRUCTIONS, INFORMED PT OF TRANSFER BACK TO [facility] FOR IV ANTIBIOTIC TREATMENT, PT VERBALIZED UNDERSTANDING OF INSTRUCTIONS. IV DISCONNECTED. ID BAND REMOVED. DISCHARGE INSTRUCTIONS GIVEN TO TRANSPORT TEAM. TRANSPORT TEAM VERBALIZED UNDERSTANDING OF INSTRUCTIONS. PT PLACE ON GURNEY IN STABLE CONDITION.
--- NOTE | 2018-11-06 16:49 | NUR ---
* ST D/C NOTE * Bedside dysphagia and oral mechanism exams attempted at this time. Pt however D/Raffaele from [facility]. No further ST follow up at [facility] recommended at this time. SUSANE
[2018-11-06] MEDS ORDERED: RIVAROXABAN 10 MG TAB PO SCH (21:00)
== END 2018-11-06 14:05 | DRG 689 ==
LOC: MED 15:16 → MTU 18:04
PROVIDERS: ADMIT General Practice; ATTEND General Practice
DX: N39.0 Urinary tract infection, site not specified (principal); G93.41 Metabolic encephalopathy; E43 Unspecified severe protein-calorie malnutrition; I74.3 Embolism and thrombosis of arteries of the lower extremities; D68.59 Other primary thrombophilia; I82.531 Chronic embolism and thrombosis of right popliteal vein; Z68.41 Body mass index [BMI] 40.0-44.9, adult; I10 Essential (primary) hypertension; D64.9 Anemia, unspecified; E11.40 Type 2 diabetes mellitus with diabetic neuropathy, unspecified; E66.01 Morbid (severe) obesity due to excess calories; I25.10 Atherosclerotic heart disease of native coronary artery without angina pectoris; E78.5 Hyperlipidemia, unspecified; M19.90 Unspecified osteoarthritis, unspecified site; E11.65 Type 2 diabetes mellitus with hyperglycemia; K21.9 Gastro-esophageal reflux disease without esophagitis; E83.42 Hypomagnesemia; F41.9 Anxiety disorder, unspecified; E11.51 Type 2 diabetes mellitus with diabetic peripheral angiopathy without gangrene; Z88.5 Allergy status to narcotic agent; Z90.49 Acquired absence of other specified parts of digestive tract; Z95.1 Presence of aortocoronary bypass graft; Z86.73 Personal history of transient ischemic attack (TIA), and cerebral infarction without residual deficits; Z98.42 Cataract extraction status, left eye
CPT/HCPCS: 36415; 71045; 80048; 80053; 80305; 81001; 82272; 82607; 82728; 82746; 82948; 83036; 83540; 83605; 83735; 84100; 84134; 84436; 84443; 84484; 85025; 85045; 85610; 85730; 87040; 87081; 87086; 87186; 93005; 93925; 93970; 97110; 97116; 97530; 99285; J0696; J1644; J1650; J1815; J2916; J3475; J7030; J7060; Q0092

== ENCOUNTER 2019-02-19 10:41 | Inpatient (IN) | payer OTHER ==
[~2019-02-19] VITALS: Ht 165.1 cm; Wt 117.9 kg
[~2019-02-19 10:41] MED LIST changes: +ACET-2619 PO; +ATOR20TA40 PO; -ATOR40TA PO; +CALC-1093 PO; +CEFT1VIA7 IJ; +CLON0.1T42 PO; +FER325 PO; +GABA-638 PO; +RIVA15TA1 PO; -ROC2I IV
--- NOTE | 2019-02-19 10:41 | NUR ---
Romain vilchis and placed in bed 10 by EMS.
[2019-02-19 10:45] VITALS: BP 128/57
--- NOTE | 2019-02-19 10:56 | NUR ---
PT BIBA C/O SOB AND RT SHOULDER/CLAVICLE PAIN X2 DAYS. PT REPORTS DRY NON PRODUCTIVE COUGH, O2 SAT AT 100% ON 4L VIA NC, RR EVEN AND NON-LABORED, BREATH SOUNDS DEMINISHED ON RT SIDE, DENIES CP, AAOX4, NO JUGULAR MARYCRUZ DISTENTION, NO EDEMA PRESENT. NON RADIAITING DULL RT CLAVIVLE PAIN AT 6/10 X 2DAYS. DENIES INJURY OR TRUAMA, NO DEFORMITY PRESENT, NO SWELLING, NO REDNESS, PAIN INCREASES W/ MOVEMENT. VSS. ER MD TO SEE PT. PMH- HF, ANEMIA, DM, HTN, GLAUCOMA, METABOLIC ENCEPHALOPATHY, PERIPHERAL VASCULAR DISEASE, OSTEOARTHRITIS, GERD, HYPERLIPIDEMIA, OBESITY
--- NOTE | 2019-02-19 11:00 | NUR ---
PT O2 SAT AT 100% ON 4L VIA NC, TURNED DOWN FLOW WATE TO 2L VIA NC, 02 SATURATION REMAINED AT 100%.
--- NOTE | 2019-02-19 11:35 | NUR ---
LAB AT BEDSIDE
--- NOTE | 2019-02-19 11:40 | NUR ---
X-RAY AT BEDSIDE
[2019-02-19 11:51] LABS: BASOPHILS % (AUTO) 0.3 % (0.0-2.0); EOSINOPHILS # (AUTO) 0.5 K/uL (0-0.4); EOSINOPHILS % (AUTO) 3.7 % (0.0-4.0); HEMATOCRIT 22.1 % (36-48); LYMPHOCYTES # (AUTO) 2.8 K/uL (2.5-16.5); LYMPHOCYTES % (AUTO) 23.2 % (20.5-51.1); MEAN CORPUSCULAR HEMOGLOBIN 21 pg (27-31); MEAN CORPUSCULAR HGB CONC 29 g/dL (33-37); MEAN CORPUSCULAR VOLUME 70.5 fL (80-94); MONOCYTES # (AUTO) 0.7 K/uL (0.8-1.0); MONOCYTES % (AUTO) 5.9 % (1.7-9.3); NEUTROPHILS # (AUTO) 8.2 K/uL (1.8-7.7); NEUTROPHILS % (AUTO) 66.9 % (42.2-75.2); PLATELET COUNT (AUTO) 393 K/uL (140-450); RED BLOOD CELL COUNT(AUTO) 3.14 MIL/uL (4.20-5.40); RED CELL DISTRIBUTION WIDTH 19.8 % (11.6-13.7); WHITE BLOOD COUNT (AUTO) 12.3 K/uL (4.8-10.8)
[2019-02-19] MEDS ORDERED: ALBUTEROL 0.083% 2.5 MG/3 ML NEBU INH ONE (11:55)
[2019-02-19 12:17] LABS: ANION GAP 16.5 (8-16); CHLORIDE 106 mmol/L (98-107); CREATININE 1.2 mg/dL (0.6-1.3); GLUCOSE 203 mg/dL (74-106); HEMOGLOBIN 6.5 g/dL (12.0-16.0); POTASSIUM 4.5 mmol/L (3.5-5.1); PROTHROMBIN TIME 11.8 secs (10.8-13.4); SODIUM SERUM 140 mmol/L (136-145); UREA NITROGEN, BLOOD 25 mg/dL (7-18)
[2019-02-19 12:23] LABS: ALBUMIN 2.5 g/dL (3.4-5.0); ASPARTATE AMINOTRANSFERASE 14 U/L (15-37); TOTAL BILIRUBIN 0.3 mg/dL (0.0-1.0)
--- NOTE | 2019-02-19 12:31 | NUR ---
CALLED PT DAUGHTER KATIE AT [phone], NOTIFIED HER THAT HER MOM WILL BE ADMITTED TO THE HOSPITAL
[2019-02-19] MEDS ORDERED: ASPIRIN 81 MG TAB.CHEW PO ONE (12:40)
[2019-02-19] MEDS ORDERED: LIDOCAINE MPF 1% 5 ML ONE (13:49)
--- NOTE | 2019-02-19 13:58 | NUR ---
ER GOINT TO ATTEMP IV WITH U/S AND LIDOCAINE, PRECUDURE SET UP AT BEDSIDE, LIDOCAINE AT BEDSIDE.
[2019-02-19] MEDS ORDERED: LANTUS SUBQ (14:15)
[2019-02-19] MEDS ORDERED: BRIM5SOL2 OP (14:15)
[2019-02-19] MEDS ORDERED: ATOR40TA PO (14:15)
[2019-02-19] MEDS ORDERED: METO25TA PO (14:15)
[2019-02-19] MEDS ORDERED: ACET-2619 PO (14:15)
[2019-02-19] MEDS ORDERED: RIVA20TA PO (14:15)
[2019-02-19] MEDS ORDERED: DORZ10SO1 OP (14:15)
[2019-02-19] MEDS ORDERED: CARB15SO23 OP (14:15)
[2019-02-19] MEDS ORDERED: METF1000 PO (14:15)
[2019-02-19] MEDS ORDERED: CALC-1093 PO (14:15)
[2019-02-19] MEDS ORDERED: INSU100S22 SUBQ (14:15)
[2019-02-19] MEDS ORDERED: NETA2.5D3 OP (14:15)
--- NOTE | 2019-02-19 14:50 | NUR ---
ER. RAHMAN UNABLE TO ESTABLISH IV ACCESS WITH ULTRASOUND. PICC LINE ACCESS WILL BE DISCUSSED
--- NOTE | 2019-02-19 15:33 | NUR ---
PICC LINE NURSE MARY CALLED, WILL BE HERE IN 30 MINUTES
--- NOTE | 2019-02-19 16:00 | NUR ---
PICC LINE NURSE AT BEDSIDE
--- NOTE | 2019-02-19 16:37 | NUR ---
X-Ray at bedside.
[2019-02-19] MEDS ORDERED: cefTRIAXone 1,000 MG VIAL ONE (17:14)
[2019-02-19] MEDS ORDERED: diphenhydrAMINE 50 MG/ML VIAL ONE (17:47)
--- NOTE | 2019-02-19 18:04 | NUR ---
# 14 FR Urinary catheter inserted utilizing sterile technique. Immediate return of 100 ml CLEAR YELLOW urine noted. Urine sample collected and sent to lab. Pt tolerated procedure WELL.
--- NOTE | 2019-02-19 18:26 | NUR ---
STRAIGHT CATH DONE, PT. TOLERATED PROCEDURE, URINE COLLECTED.
[2019-02-19] MEDS ORDERED: diphenhydrAMINE 50 MG/ML VIAL IVP ONE (18:35)
[2019-02-19] MEDS ORDERED: ENOXAPARIN 100 MG/ML SYR SUBQ ONE (18:40)
[2019-02-19] MEDS ORDERED: FUROSEMIDE 40 MG/4 ML VIAL IVP SCH (18:40)
[2019-02-19 19:17] LABS: BILIRUBIN,URINE NEGATIVE (NEGATIVE); BLOOD, URINE TRACE-I (NEGATIVE); COLOR,URINE YELLOW (YELLOW); LEUKOCYTE ESTERASE ,URINE TRACE (NEGATIVE); NITRITE, URINE NEGATIVE (NEGATIVE); UGLUCOSE NEGATIVE (NEGATIVE)
[2019-02-19 19:19] LABS: APPEARANCE,URINE CLOUDY (CLEAR)
--- NOTE | 2019-02-19 19:19 | NUR ---
REPORT GIVEN TO SUNG
[2019-02-19] MEDS ORDERED: NACL 0.9% 1,000 ML IV SCH (19:55)
[2019-02-19] MEDS ORDERED: ACETAMINOPHEN 325 MG TAB PO PRN ×2 (19:55→21:05)
[2019-02-19] MEDS ORDERED: LORazepam 2 MG/ML VIAL IM/IVP PRN (19:55)
[2019-02-19] MEDS ORDERED: IBUPROFEN 800 MG TAB PO PRN (19:55)
[2019-02-19] MEDS ORDERED: ZOLPIDEM 5 MG TAB PO PRN (19:55)
[2019-02-19] MEDS ORDERED: DOCUSATE SODIUM 100 MG GELCAP PO PRN (19:55)
[2019-02-19 20:10] VITALS: BP 137/61
--- NOTE | 2019-02-19 20:10 | NUR ---
RECEIVED PT FROM ER NURSE REPORT GIVEN AT BED SIDE, PT IS AAOX4 OBESITY AT RA NOT RESP DISTRESS NOTED 02 SAT 95% ON TELEMETRY SR, PICC LINE ON RT UA INFUSING BOLUS FROM ER , EDEMA 2+ ON BILATERAL LE , THE NARES WERE SWAB FOR MRSA PROTOCOL AND SENT TO LAB CALL LIGHT WITHIN REACH INITIAL ASSESSMENT DONE.
[2019-02-19] MEDS ORDERED: DEXTROSE 50% 50 ML SYR IVP PRN (20:35)
[2019-02-19] MEDS ORDERED: INSULIN LISPRO SLIDING SCALE 100 UNITS/ML VIAL SUBQ PRN (20:35)
[2019-02-19] MEDS ORDERED: cloNIDine 0.1 MG TAB PO PRN (21:05)
--- NOTE | 2019-02-19 21:10 | NUR ---
Admited to TELE. Will go to room 127 B. Belongings list completed. Report to . Addendum: 02/20/19 at 0021 by YAZ REPORT GIVEN TO KISHA JAMISON.
[2019-02-19] MEDS: BLOOD GLUCOSE MONITORING 1 DEV DEV FS SCH (21:15)
[2019-02-19] MEDS: INSULIN LANTUS 100 UNITS/ML 10 ML VIAL SUBQ SCH (21:30)
--- NOTE | 2019-02-19 22:00 | NUR ---
BLOOD SUGAR TEST TAKEN 181 AND COVERAGE WITH 2 UNITS HUMALOG SUBQ FOLLOW PROTOCOL, AND FODD PROVIDES ORDER O
[2019-02-19 22:38] LABS: MAGNESIUM 1.9 mg/dL (1.8-2.4); THYROID STIMULATING HORMONE 5.23 uIU/mL (0.34-3.74)
[2019-02-19] MEDS ORDERED: MEDICATION REC. PHARMACY CONS. 1 EA MISC MC PRN (23:10)
[2019-02-19] MEDS ORDERED: MELATONIN 3 MG TAB PO PRN (23:10)
[2019-02-20] VITALS: BP 135/58
--- NOTE | 2019-02-20 | NUR ---
STILL WAITING FOR PHARMACY TO START FERRLECIT IV, PT BRENDEN LOWRY CHANGED AND HAS ONE BM
[2019-02-20] MEDS: SODIUM FERRIC GLUCONATE 125 MG in NACL 0.9% 100 ML IV SCH ×2 (00:59→22:03)
--- NOTE | 2019-02-20 01:00 | NUR ---
FERRLECIT IVPB GIVEN ORDER.
--- NOTE | 2019-02-20 01:30 | NUR ---
PT REFUSED TO HAVE BLOOD TRANSFUSION UNTIL HER DAUGHTER COME IN AM
--- NOTE | 2019-02-20 02:00 | NUR ---
PT REPOSITIONED Q2H NOT DISTRESS NOTED, DENIES ANY PAIN ON CLOSE MONITORING
--- NOTE | 2019-02-20 03:14 | NUR ---
LAB CALL TO NOTIFY THAT BLOOD IS READY FOR TRANSFUSION , BUT PT STILL REFUSED TO SIGN CONSENT FOR BLOOD TRANSFUSION SHE SAID SHE WANT TO WAIT FOR HER DAUGHTER IN AM AND DR COOK ORDER TO START TRANSFUSION TODAY AT 0700AM
[2019-02-20 04:00] VITALS: BP 124/59
--- NOTE | 2019-02-20 06:00 | NUR ---
BS 104 NO INSULIN COVERAGE NEEDED PER SLIDING SCALE. PT DOES'NT WANT TO SIGN BLOOD TRANSFUSION CONSENT UNTIL SHE SPEAKS TO HER DAUGHTER . DOES NOT WANT TO CALL HER DAUGHTER AT THIS TIME. PT WILL BE ENDORSED TO THE DAY SHIFT NURSE FOR CONTINUED CARE.
[2019-02-20] MEDS: BLOOD GLUCOSE MONITORING 1 DEV DEV FS SCH ×4 (06:28→20:42)
--- NOTE | 2019-02-20 07:10 | NUR ---
PT DAUGHTER SHELLY ARMSTRONG TALKED BY PHONE AND PT STILL DOES NOT WANT TO SIGN CONSENT FOR BLOOD TRANSFUSION, DR LANGLEY WILL BE NOTIFY
--- NOTE | 2019-02-20 07:14 | NUR ---
DR LANGLEY IS HERE AND TALKED TO THE PT THE IMPORTANT TO HAVE BLOOD TRANSFUSION FOR LOW HEMOGLOBIN AND PT STILL REFUSING TO SIGN DE CONSENT FOR BLOOD TRANSFUSION , PT IS ENDORSED TO FRANCINE BEARD FOR CONTINUE OF CARE
--- NOTE | 2019-02-20 07:15 | NUR ---
RECEIVED HAND OFF REPORT FROM PM RN PT AWAKE IN BED PT APPEARS STABLE AND IN NO APPARENT DISTRESS. ALL SAFETY MEASURES ARE IN PLACE PT HAS RIGHT UPPER ARM PICC LINE IN PLACE. PT IS REFUSING BLOOD TRANSFUSION AT THIS TIME. DR. LANGLEY AT BEDSIDE DISCUSSING THE REASONS FOR BLOOD TRANSFUSION. WILL CONTINUE TO MONITOR PT
--- NOTE | 2019-02-20 07:26 | NUR ---
OBTAINED CONSENT FROM PT FOR BLOOD TRANSFUSION. DR. LANGLEY AT BEDSIDE. PT AWARE OF RISKS AND BENEFITS OF BLOOD TRANSFUSION WILL PREPARE TO ADMINISTER BLOOD
[2019-02-20] MEDS: glipiZIDE 10 MG TAB PO SCH ×2 (07:30→17:35)
[2019-02-20 07:35] LABS: ANION GAP 14.9 (8-16); CARBON DIOXIDE 24.6 mmol/L (21-32); CHLORIDE 107 mmol/L (98-107); GLUCOSE 112 mg/dL (74-106); POTASSIUM 4.5 mmol/L (3.5-5.1); SODIUM SERUM 142 mmol/L (136-145); UREA NITROGEN, BLOOD 24 mg/dL (7-18)
[2019-02-20 07:38] LABS: CHOL/HDL RATIO 2.6 (1-4.5)
[2019-02-20] MEDS: ONDANSETRON 4 MG/2 ML VIAL IM/IVP PRN (07:51)
[2019-02-20 07:52] LABS: BASOPHILS % (AUTO) 0.4 % (0.0-2.0); EOSINOPHILS # (AUTO) 0.1 K/uL (0-0.4); EOSINOPHILS % (AUTO) 1.2 % (0.0-4.0); LYMPHOCYTES # (AUTO) 2.2 K/uL (2.5-16.5); LYMPHOCYTES % (AUTO) 21.7 % (20.5-51.1); MEAN CORPUSCULAR HEMOGLOBIN 21 pg (27-31); MEAN CORPUSCULAR HGB CONC 30 g/dL (33-37); MEAN CORPUSCULAR VOLUME 70.1 fL (80-94); MONOCYTES # (AUTO) 0.7 K/uL (0.8-1.0); MONOCYTES % (AUTO) 6.6 % (1.7-9.3); NEUTROPHILS # (AUTO) 7.2 K/uL (1.8-7.7); NEUTROPHILS % (AUTO) 70.1 % (42.2-75.2); PLATELET COUNT (AUTO) 341 K/uL (140-450); RED BLOOD CELL COUNT(AUTO) 2.82 MIL/uL (4.20-5.40); RED CELL DISTRIBUTION WIDTH 19.5 % (11.6-13.7); WHITE BLOOD COUNT (AUTO) 10.3 K/uL (4.8-10.8)
[2019-02-20 08:04] LABS: HEMATOCRIT 19.8 % (36-48); HEMOGLOBIN 5.9 g/dL (12.0-16.0)
--- NOTE | 2019-02-20 08:20 | NUR ---
BLOOD TRANSFUSION HAS BEEN STARTED PT AWAKE IN BED PT APPEARS STABLE AND IN NO APPARENT DISTRESS. PT IS AWARE OF TRANSFUSION REACTIONS AND HAS BEEN TAUGHT TO NOTIFY ME OF ANY SYMPTOMS WILL STAY AT PT BEDSIDE FOR FIRST 30 MINUTES OF TRANSFUSION Addendum: 02/20/19 at 1702 by Stephani Chapa RN HELD BENADRYL AND TYLENOL SPOKE WITH DR. LANGLEY SHE STATED THAT IS OK TO HOLD MEDICATIONS.
[2019-02-20 08:50] VITALS: BP 120/58
[2019-02-20] MEDS ORDERED: DORZOLAMIDE 2% OP 10 ML BTL OP SCH ×2 (09:00→10:22)
--- NOTE | 2019-02-20 10:02 | NUR ---
RECEIVED EYE DROPS FROM PT FACILITY PLACED IN PHARMACY. DR LANGLEY AWARE OF EYE DROPS AND THEY ARE ORDERED IN THE EMAR. MARCOS FROM PHARMACY CALLED TO INFORM THAT ONE OF THE MEDICATIONS IS EMPTY DR. LANGLEY IS GOING TO FOLLOW UP WITH THE FACILITY TO SEE IF THEY CAN BE ANOTHER
[2019-02-20] MEDS: metFORMIN 500 MG TAB PO SCH ×2 (10:03→20:42)
[2019-02-20] MEDS: ECOTRIN 81 MG TABEC PO SCH (10:03)
[2019-02-20] MEDS: METOPROLOL SUCCINATE 50 MG TABER PO SCH (10:04)
[2019-02-20] MEDS: amLODIPine 5 MG TAB PO SCH (10:04)
[2019-02-20] MEDS: LACTOBACILLUS RHAMNOSUS GG 1 EACH CAP PO SCH (10:04)
--- NOTE | 2019-02-20 10:31 | NUR ---
SPOKE WITH PT DAUGHTER SHELLY ON THE PHONE INFORMED THE DAUGHTER THAT THE BLOOD TRANSFUSION HAS BEEN STARTED PT TOLERATING TRANSFUSION WELL.
[2019-02-20] MEDS: ACETAMINOPHEN 325 MG TAB PO SCH ×3 (12:00→16:00)
[2019-02-20 12:03] VITALS: BP 120/71
[2019-02-20 12:46] LABS: HEMATOCRIT 23.5 % (36-48); HEMOGLOBIN 7.1 g/dL (12.0-16.0)
--- NOTE | 2019-02-20 14:00 | NUR ---
HOLDING IV ANTIBIOTIC UNTIL AFTER SECOND BLOOD TRANSFUSION IS FINISHED INFUSING
[2019-02-20] MEDS: Carboxymethylcellulos/Glycerin (Refresh Optive Eye Drops) OP SCH ×3 (14:01→20:51)
--- NOTE | 2019-02-20 14:36 | NUR ---
ADMINISTERED SECOND UNIT OF BLOOD PT AWAKE IN BED PT APPEARS STABLE AND IN NO APPARENT DISTRESS. ALL SAFETY MEASURES ARE IN PLACE. WILL CONTINUE TO MONITOR.
[2019-02-20 16:04] VITALS: BP 130/64
--- NOTE | 2019-02-20 18:38 | NUR ---
FREQUENT ROUNDING ON PT PT APPEARS STABLE AND IN NO APPARENT DISTRESS. ALL SAFETY MEASURES ARE IN PLACE WILL CONTINUE TO MONITOR.
--- NOTE | 2019-02-20 19:27 | NUR ---
ENDORSED PT TO PM RN PT AWAKE IN BED BOTH UNITS OF BLOOD HAVE BEEN COMPLETED. RIGHT UPPER ARM PICC LINE IN PLACE. ALL SAFETY MEASURES ARE IN PLACE
--- NOTE | 2019-02-20 19:35 | NUR ---
RECEIVED BEDSIDE REPORT FROM DAY SHIFT NURSE. PATIENT IS SLEEPING AROUSABLE BY NAME AND TOUCH. RESPIRATION EVEN UNLABORED ON ROOM AIR. NO DISTRESS NOTED. SKIN IS WARM AND DRY. RIGHT UPPER ARM PICC LINE NOTED. PATENT AND INTACT. DENIES PAIN. PLAN OF CARE WAS DISCUSSED. ALL SAFETY MEASURES IN PLACE. BED IS AT LOW POSITION. CALL LIGHT WITHIN REACH. WILL CONTINUE TO MONITOR.
[2019-02-20 20:00] VITALS: BP 134/71
--- NOTE | 2019-02-20 20:10 | NUR ---
INITIAL ASSESSMENT DONE. VITALS WERE TAKEN. PATIENT IN STABLE CONDITION. WILL CONTINUE TO MONITOR
[2019-02-20 20:22] LABS: BASOPHILS # (AUTO) 0.1 K/uL (0.00-0.22); BASOPHILS % (AUTO) 0.5 % (0.0-2.0); EOSINOPHILS # (AUTO) 0.1 K/uL (0-0.4); EOSINOPHILS % (AUTO) 0.9 % (0.0-4.0); HEMATOCRIT 27.3 % (36-48); HEMOGLOBIN 8.3 g/dL (12.0-16.0); LYMPHOCYTES # (AUTO) 2.2 K/uL (2.5-16.5); LYMPHOCYTES % (AUTO) 19.5 % (20.5-51.1); MEAN CORPUSCULAR HEMOGLOBIN 23 pg (27-31); MEAN CORPUSCULAR HGB CONC 31 g/dL (33-37); MEAN CORPUSCULAR VOLUME 75.6 fL (80-94); MONOCYTES # (AUTO) 0.8 K/uL (0.8-1.0); MONOCYTES % (AUTO) 7.3 % (1.7-9.3); NEUTROPHILS % (AUTO) 71.8 % (42.2-75.2); PLATELET COUNT (AUTO) 328 K/uL (140-450); RED BLOOD CELL COUNT(AUTO) 3.61 MIL/uL (4.20-5.40); RED CELL DISTRIBUTION WIDTH 23.1 % (11.6-13.7); WHITE BLOOD COUNT (AUTO) 11.1 K/uL (4.8-10.8)
[2019-02-20] MEDS: ATORVASTATIN 20 MG TAB PO SCH (20:42)
[2019-02-20] MEDS: TIMOLOL OP SCH (20:49)
[2019-02-20] MEDS: BRIMONIDINE TARTRATE OP SCH (20:49)
[2019-02-20] MEDS: NETARSUDIL MESYLAT OP SCH (20:49)
[2019-02-20] MEDS: LATANOPROST OP SCH (20:49)
--- NOTE | 2019-02-20 20:50 | NUR ---
ALL SCHEDULED MEDS WERE GIVEN PER ORDER. NO ASE NOTED. WILL CONTINUE TO MONITOR.
[2019-02-20] MEDS: DORZOLAMIDE 2% OP 10 ML BTL OP SCH (20:51)
[2019-02-20] MEDS ORDERED: METOPROLOL 25 MG TAB PO SCH (21:00)
[2019-02-20] MEDS ORDERED: INSULIN LANTUS 100 UNITS/ML 10 ML VIAL SUBQ SCH (21:00)
[2019-02-20] MEDS ORDERED: RIVAROXABAN 10 MG TAB PO SCH (21:00)
[2019-02-20] MEDS ORDERED: traZODone 50 MG TAB PO SCH (21:00)
--- NOTE | 2019-02-20 21:09 | NUR ---
TRAZADONE MEDS NOT ADMINISTERED DUE TO PATIENT SLEEPING. WILL CONTINUE TO MONITOR.
--- NOTE | 2019-02-20 22:40 | NUR ---
PATIENT ASK FOR CRACKERS AND MILK. PROVIDED CRACKERS AND MILK. WILL CONTINUE TO MONITOR.
--- NOTE | 2019-02-20 23:25 | NUR ---
CHECKED PATIENT. PATIENT SLEEPING RESPIRATION EVEN UNLABORED ON ROOM AIR. NO DISTRESS NOTED. WILL CONTINUE TO MONITOR.
[2019-02-21] VITALS: BP 120/65
--- NOTE | 2019-02-21 00:09 | NUR ---
VITALS WERE TAKEN. PATIENT IN STABLE CONDITION. NO DISTRESS NOTED. WILL CONTINUE TO MONITOR.
--- NOTE | 2019-02-21 01:46 | NUR ---
PATIENT IS ASKING FOR ICE CREAM. TOLD PATIENT ICE CREAM WILL BE SERVED TOMORROW.
[2019-02-21 04:00] VITALS: BP 128/70
[2019-02-21] MEDS: BLOOD GLUCOSE MONITORING 1 DEV DEV FS SCH ×4 (06:16→20:47)
[2019-02-21 06:51] LABS: MAGNESIUM 1.7 mg/dL (1.8-2.4)
[2019-02-21] MEDS: glipiZIDE 10 MG TAB PO SCH ×2 (07:01→17:07)
[2019-02-21 07:08] LABS: ANION GAP 15.9 (8-16); CARBON DIOXIDE 23.1 mmol/L (21-32); CHLORIDE 107 mmol/L (98-107); CREATININE 1.2 mg/dL (0.6-1.3); GLUCOSE 109 mg/dL (74-106); SODIUM SERUM 142 mmol/L (136-145); UREA NITROGEN, BLOOD 27 mg/dL (7-18)
--- NOTE | 2019-02-21 07:21 | NUR ---
ENDORSED PATIENT TO DAY SHIFT NURSE FOR CONTINUITY OF CARE. PATIENT IN STABLE CONDITION
--- NOTE | 2019-02-21 07:22 | NUR ---
RECEIVED BEDSIDE REPORT FROM TRACTOR OPERATOR BATTERY NURSE, PT IS AAOX3, ABLE TO FOLLOW COMMANDS AND MAKE NEEDS KNOWN, VSS, DENIES PAIN, NO S/S OF DISTRESS, DIMINISHED LUNG SOUNDS OLIVIER. ON RA, DENIES CHEST PAIN, SR ON TELE MONITOR, CAP REFILL <2 SEC. LARGE AND ROUND ABDOMEN WITH ACTIVE BOWEL SOUNDS, INCONTINENT WITH B&B'S, ABLE TO MOVE ALL EXTREMITIES, GENERALIZED WEAKNESS NOTED. SKIN IS WARM AND DRY TO TOUCH, NO OPEN WOUND, PICC LINE TO ALEXANDER, PATENT AND SL. HOB ELEVATED 30 DEGREES, SAFETY MEASURES IN PLACE, CALL LIGHT WITHIN REACH, WILL CONTINUE TO MONITOR.
[2019-02-21 08:00] VITALS: BP 139/70
--- NOTE | 2019-02-21 08:29 | NUR ---
PATIENT HAS BEEN SCREENED AND CATEGORIZED HIGH NUTRITION RISK. PATIENT WILL BE SEEN WITHIN 1-2 DAYS OF ADMISSION. 02/21/[address]
[2019-02-21] MEDS: BRIMONIDINE TARTRATE OP SCH ×2 (09:00→21:00)
[2019-02-21] MEDS: TIMOLOL OP SCH ×2 (09:00→21:00)
[2019-02-21] MEDS: METOPROLOL SUCCINATE 50 MG TABER PO SCH (09:27)
[2019-02-21] MEDS: metFORMIN 500 MG TAB PO SCH ×2 (09:27→21:06)
[2019-02-21] MEDS: amLODIPine 5 MG TAB PO SCH (09:27)
[2019-02-21] MEDS: ECOTRIN 81 MG TABEC PO SCH (09:28)
[2019-02-21] MEDS: LACTOBACILLUS RHAMNOSUS GG 1 EACH CAP PO SCH (09:28)
--- NOTE | 2019-02-21 09:30 | NUR ---
SCHEDULED PO MEDICATION GIVEN, PT ABLE TO SWALLOW PILLS WHOLE AND TOLERATED WELL.
[2019-02-21] MEDS: DORZOLAMIDE 2% OP 10 ML BTL OP SCH ×2 (09:37→21:00)
[2019-02-21] MEDS: Carboxymethylcellulos/Glycerin (Refresh Optive Eye Drops) OP SCH ×4 (09:39→21:00)
--- NOTE | 2019-02-21 09:44 | NUR ---
PT'S EYE DROP MEDICATION TITIIGAN RUN OUT, PER PHARMACIST, THEY SPOKE TO PT'S CAREGIVER ABOUT IT ALREADY, NEEDS TO FOLLOW UP WITH PT'S CAREGIVER, OR DRMichele TO REFILL. SPOKE TO DR. DE LA ROSA, SHE SAID PT'S CAREGIVER PROBABLY ALREADY REFILLED, JUST ASK THE CAREGIVER. COULD NOT CONTACT THE CAREGIVER NOW, WILL TRY LATER.
[2019-02-21 10:22] LABS: HEPATITIS A ANTIBODY IGM Negative (Negative); HEPATITIS B CORE AB TOTAL Negative (Negative); HEPATITIS B SURFACE ANTIBODY Non Reactive (.); HEPATITIS B SURFACE ANTIGEN Negative (Negative)
[2019-02-21] MEDS ORDERED: DEXTROSE 50% 50 ML SYR IVP PRN (11:05)
[2019-02-21] MEDS: INSULIN LISPRO SLIDING SCALE 100 UNITS/ML VIAL SUBQ PRN ×2 (11:59→20:49)
[2019-02-21 12:00] VITALS: BP 141/60
--- NOTE | 2019-02-21 12:00 | NUR ---
PT IS RESTING IN BED, NO S/S OF DISTRESS, VSS, DENIES ANY PAIN.
--- NOTE | 2019-02-21 13:10 | NUR ---
(02/21/19) RD INITIAL ASSESSMENT COMPLETED PLEASE REFER TO NUTRITION ASSESSMENT UNDER CARE ACTIVITY FOR ESTIMATED NUTRITIONAL NEEDS. RD RECOMMENDATIONS: 1. CONTINUE ON CCHO, CARDIAC DIET TOLERATED. 2. RDN TO PROVIDE DIET HEALTH SHAKES 1 CARTON (4-OZ) (VANILLA) WITH MEALS TID. THIS WILL PROVIDE 600 KCAL AND 21 GM PROTEIN TO HELP MEET NUTRITION NEEDS DUE TO PT MEETING < 75% ESTIMATED NEEDS. 3. CONSULT RDN PRN. 4. RD WILL F/U 3-5 DAYS; MODERATE RISK. MYKEL THOMPSON MS, RDN
--- NOTE | 2019-02-21 15:50 | NUR ---
EGD AND COLONOSCOPY CONSENT SIGNED BY PATIENT, PT IS AAOX3, EXPLAINED THE INDICATION OF CONSENT, VERBALIZED UNDERSTANDING AND ABLE TO SIGN AT THIS TIME.
[2019-02-21 16:00] VITALS: BP 126/62
--- NOTE | 2019-02-21 16:00 | NUR ---
PT IS ASLEEP IN BED, NO S/S OF DISTRESS, VSS, DENIES PAIN, WILL CONTINUE TO MONITOR.
[2019-02-21] MEDS: SENNA 8.6 MG TAB PO SCH (17:07)
[2019-02-21] MEDS: DEXT 5% / NACL 0.9% 500 ML IV SCH (18:32)
[2019-02-21] MEDS ORDERED: SIMETHICONE 80 MG TAB.CHEW PO PRN (19:00)
[2019-02-21] MEDS ORDERED: MAGNESIUM OXIDE 400 MG TAB PO ONE (19:10)
--- NOTE | 2019-02-21 19:20 | NUR ---
REPORT GIVEN TO CASTINGS DRAFTER NURSE FOR CONTINUE OF CARE, PT IS IN STABLE CONDITION AT THIS TIME.
--- NOTE | 2019-02-21 19:25 | NUR ---
RECEIVED PT FROM RYAN RN PT AAOX4 BEDBOUND OBESE , RT UA PICC LINE INFUSING WELL, DENIES ANY PAIN OR DISCOMFORT ATTHIS TIME INITIAL ASSESSMENT DONE
[2019-02-21 20:00] VITALS: BP 141/68
[2019-02-21] MEDS: INSULIN LANTUS 100 UNITS/ML 10 ML VIAL SUBQ SCH (20:53)
[2019-02-21] MEDS: SODIUM FERRIC GLUCONATE 125 MG in NACL 0.9% 100 ML IV SCH (20:54)
[2019-02-21] MEDS: FUROSEMIDE 20 MG/2 ML VIAL IVP SCH (20:56)
[2019-02-21] MEDS: ATORVASTATIN 20 MG TAB PO SCH ×2 (20:58→20:59)
[2019-02-21] MEDS: LACTULOSE 20 GM/30 ML UDC PO SCH (20:58)
[2019-02-21] MEDS ORDERED: traZODone 50 MG TAB PO PRN (21:00)
[2019-02-21] MEDS: NETARSUDIL MESYLAT OP SCH (21:00)
[2019-02-21] MEDS: LATANOPROST OP SCH (21:00)
--- NOTE | 2019-02-21 21:00 | NUR ---
BLOOD SUGAR TEST 168 COVERAGE WITH2 UNITS HUMALOG FOLLOW PROTOCOL
[2019-02-21] MEDS ORDERED: BOWEL EVACUANT DRINK 4,000 ML PDS PO ONE (22:50)
--- NOTE | 2019-02-21 22:50 | NUR ---
PT IS TRANSFER TO ROOM 126 B B
[2019-02-22] VITALS: BP 127/57
--- NOTE | 2019-02-22 00:05 | NUR ---
GOLYTELY ALREADY STARTED FOR COLONOSCOPY PT COOPERATIVE TO DRINK IT, WELL TOLERATED, PT ON TELMETRY SR
[2019-02-22] MEDS: ONDANSETRON 4 MG/2 ML VIAL IM/IVP PRN (01:22)
--- NOTE | 2019-02-22 01:35 | NUR ---
PT FEELS NAUSEAS AND MEDIC GIVEN BUT PT REFUSED TOCONTINUE TAKEN ROMA , DR COOK AWARE
[2019-02-22 04:00] VITALS: BP 129/58
--- NOTE | 2019-02-22 04:00 | NUR ---
SPONGE BATH GIVEN , LINEN CHANGED PT HAS A BIG BM LIQUID STOOL BROW COLOR, AND PT REFUSED TO TAKE GOLYTELY FOR COLON PREPARATION
[2019-02-22] MEDS: DEXT 5% / NACL 0.9% 500 ML IV SCH ×3 (04:40→15:19)
[2019-02-22] MEDS: glipiZIDE 10 MG TAB PO SCH ×2 (05:07→16:49)
[2019-02-22 06:18] LABS: BASOPHILS # (AUTO) 0.1 K/uL (0.00-0.22); BASOPHILS % (AUTO) 0.4 % (0.0-2.0); EOSINOPHILS # (AUTO) 0.4 K/uL (0-0.4); EOSINOPHILS % (AUTO) 3.6 % (0.0-4.0); HEMATOCRIT 25.9 % (36-48); HEMOGLOBIN 7.9 g/dL (12.0-16.0); LYMPHOCYTES # (AUTO) 2.6 K/uL (2.5-16.5); LYMPHOCYTES % (AUTO) 21.2 % (20.5-51.1); MEAN CORPUSCULAR HEMOGLOBIN 24 pg (27-31); MEAN CORPUSCULAR HGB CONC 31 g/dL (33-37); MEAN CORPUSCULAR VOLUME 77.2 fL (80-94); MONOCYTES # (AUTO) 0.8 K/uL (0.8-1.0); MONOCYTES % (AUTO) 6.8 % (1.7-9.3); NEUTROPHILS # (AUTO) 8.4 K/uL (1.8-7.7); PLATELET COUNT (AUTO) 290 K/uL (140-450); RED BLOOD CELL COUNT(AUTO) 3.35 MIL/uL (4.20-5.40); RED CELL DISTRIBUTION WIDTH 22.9 % (11.6-13.7); WHITE BLOOD COUNT (AUTO) 12.3 K/uL (4.8-10.8)
[2019-02-22] MEDS: BLOOD GLUCOSE MONITORING 1 DEV DEV FS SCH ×4 (06:45→21:07)
--- NOTE | 2019-02-22 06:48 | NUR ---
BLOOD SUGAR TEST 125 NOT COVERAGE PT REFUSED ROMA COOK AWARE PTHAD 2 BIG BMLIQUID BUT NOT READY FOR COLONOSCOPY, PT WILL BE ENDORSED TO DAY SHIFT NURSE FOR CONTINUE CARE
[2019-02-22 06:58] LABS: CARBON DIOXIDE 24.4 mmol/L (21-32); CHLORIDE 108 mmol/L (98-107); CREATININE 1.2 mg/dL (0.6-1.3); GLUCOSE 122 mg/dL (74-106); POTASSIUM 3.4 mmol/L (3.5-5.1); SODIUM SERUM 143 mmol/L (136-145); UREA NITROGEN, BLOOD 24 mg/dL (7-18)
[2019-02-22 07:21] LABS: MAGNESIUM 1.6 mg/dL (1.8-2.4); PHOSPHORUS 3.8 mg/dL (2.5-4.9)
--- NOTE | 2019-02-22 07:30 | NUR ---
Received shift report from shift lab technician nurse. Stable is in bed and in stable condition. Call light in reach
--- NOTE | 2019-02-22 07:58 | NUR ---
Report received from evp managing director nurse. Pt in stable condition at this time. Call light in reach
[2019-02-22 08:00] VITALS: BP 124/53
[2019-02-22 08:07] LABS: FOLIC ACID 15.3 ng/mL (>3.0)
[2019-02-22] MEDS: LACTOBACILLUS RHAMNOSUS GG 1 EACH CAP PO SCH (09:41)
[2019-02-22] MEDS: FUROSEMIDE 20 MG/2 ML VIAL IVP SCH ×2 (09:41→20:47)
[2019-02-22] MEDS: LACTULOSE 20 GM/30 ML UDC PO SCH ×2 (09:41→20:46)
[2019-02-22] MEDS: metFORMIN 500 MG TAB PO SCH ×2 (09:41→20:46)
[2019-02-22] MEDS: METOPROLOL SUCCINATE 50 MG TABER PO SCH (09:42)
[2019-02-22] MEDS: SPIRONOLACTONE 25 MG TAB PO SCH (09:42)
[2019-02-22] MEDS: amLODIPine 5 MG TAB PO SCH (09:42)
[2019-02-22] MEDS: SODIUM FERRIC GLUCONATE 125 MG in NACL 0.9% 100 ML IV SCH ×2 (09:43→20:52)
[2019-02-22] MEDS: SENNA 8.6 MG TAB PO SCH ×3 (09:43→16:49)
[2019-02-22] MEDS: Carboxymethylcellulos/Glycerin (Refresh Optive Eye Drops) OP SCH ×4 (09:45→20:52)
[2019-02-22] MEDS: BRIMONIDINE TARTRATE OP SCH ×2 (09:45→20:50)
[2019-02-22] MEDS: TIMOLOL OP SCH ×2 (09:45→20:50)
[2019-02-22] MEDS: DORZOLAMIDE 2% OP 10 ML BTL OP SCH ×2 (09:46→20:51)
--- NOTE | 2019-02-22 10:00 | NUR ---
Pt did not take Golytely. Informed GI lab that patient did not take Golytely. GI said they will talk to DR for reschedule EGD procedure.
[2019-02-22] MEDS ORDERED: MAG SULF 2000 MG/WATER PREMIX 50 ML IV SCH (11:00)
[2019-02-22 12:00] VITALS: BP 131/58
--- NOTE | 2019-02-22 13:00 | NUR ---
Pt is resting in bed. No C/O pain. No signs of distress. Call light in reach.
--- NOTE | 2019-02-22 13:55 | NUR ---
*S.T. Bedside swallow eval completed* See report. Pt presents w/ mild oral difficulty w/ managing solids c/b prolonged mastication. Pt however, did not demonstrate any overt s/s aspiration across all textures. Pt is able to self-feed w/ min assist. Recommend: 1) Advance to full liquid diet okay prior to colonoscopy and then after procedure okay to advance to mechanical soft chopped diet, thin liquids. Straws okay. 2) P.O. meds okay whole one at a time. 3) Nsg to assist w/ tray set-up to promote self-feeding. No further tx indicated at this time as pt appears to be functioning at her reported baseline. D/w pt results/recommendations. Endorsed to KISHA Mccabe. Time [id number]
[2019-02-22] MEDS ORDERED: KCL 20 MEQ/WATER INJ PREMIX 100 ML IV SCH (15:00)
--- NOTE | 2019-02-22 15:00 | NUR ---
As per Dr Max and Dr. Zimmerman pt's EGD procedure will not be done today. Pt to remain on full liquid diet and NPO after midnight.
[2019-02-22 16:00] VITALS: BP 130/53
--- NOTE | 2019-02-22 17:00 | NUR ---
Pt's 1600 blood sugar was 156. Pt had a medication for glipizide. Informed Dr Fisher. requested not to administer humalog insulin as glipizide was given.
[2019-02-22] MEDS ORDERED: FUROSEMIDE 20 MG/2 ML VIAL IVP SCH (18:15)
--- NOTE | 2019-02-22 19:00 | NUR ---
Pt is resting in bed. No C/O pain. No signs of distress. Call light in reach.
--- NOTE | 2019-02-22 19:25 | NUR ---
RECEIVED PT IN STABLE CONDITION FROM AM NURSE FOR CONTINUITY OF CARE. AWAKE,ALERT AND ORIENTED X4. ON TELEMETRY BED. WITH NO C/O ANY PAIN NOR DISCOMFORT NOTED. BEDREST. HAS IVF INFUSING WELL ON THE RT UPPER ARM PICC LINE DOUBLE LUMEN. PLAN OF CARE DISCUSSED AND VERBALIZED UNDERSTANDING. BED ON LOWEST POSITION. FREQ ROUNDS NEEDED. SIDE RAILS UP X2. CALL LIGHT PLACED WITHIN EASY REACH.
--- NOTE | 2019-02-22 19:30 | NUR ---
Shift report given to security shift supervisor nurse. Pt in stable condition. Call light in reach.
[2019-02-22 20:00] VITALS: BP 122/60
[2019-02-22] MEDS: ATORVASTATIN 20 MG TAB PO SCH (20:46)
[2019-02-22] MEDS: LATANOPROST OP SCH (20:49)
[2019-02-22] MEDS: NETARSUDIL MESYLAT OP SCH (20:49)
[2019-02-22] MEDS: SUPREP BOWEL PREP KIT 354 ML SOLN.RECON PO SCH (20:53)
[2019-02-22] MEDS: INSULIN LANTUS 100 UNITS/ML 10 ML VIAL SUBQ SCH (21:00)
--- NOTE | 2019-02-22 21:10 | NUR ---
BLOOD SUGAR 188. HUMALOG 2 UNITS SUBQ COVERAGE GIVEN. LANTUS HOLD FOR NOW PER DR. COOK,RESIDENT. HE SAID TO CHECK BS LATER.
[2019-02-22] MEDS: INSULIN LISPRO SLIDING SCALE 100 UNITS/ML VIAL SUBQ PRN (21:12)
[2019-02-23] VITALS: BP 125/61
--- NOTE | 2019-02-23 00:05 | NUR ---
PT ALREADY HAD X2 LARGE WATERY STOOL BUT YELLOWISH IN COLOR. PT WAS CLEANED AND KEPT DRY.
--- NOTE | 2019-02-23 00:25 | NUR ---
BLOOD SUGAR WAS RECHECKED PER MD RESULT 127. DR. COOK ,RESIDENT SAID NOT TO GIVE THE LANTUS TONIGHT FOR PT IS NPO. WILL CONTINUE TO MONITOR.
--- NOTE | 2019-02-23 02:20 | NUR ---
PATIENT ASLEEP IN BED. NO DISTRESS NOTED. BED IN LOW POSITION. CALL LIGHT WITHIN REACH. WILL CONTINUE TO MONITOR.
[2019-02-23 04:00] VITALS: BP 132/60
--- NOTE | 2019-02-23 04:00 | NUR ---
MADE ROUNDS. VITAL SIGNS TAKEN. STABLE. NO COMPLAINT OF PAIN.
[2019-02-23] MEDS: BLOOD GLUCOSE MONITORING 1 DEV DEV FS SCH ×4 (06:18→19:55)
--- NOTE | 2019-02-23 06:18 | NUR ---
BLOOD SUGAR CHECK RESULT IS 89. WITH IV FLUIDS INFUSING.
[2019-02-23] MEDS: glipiZIDE 10 MG TAB PO SCH ×2 (06:31→17:28)
[2019-02-23 06:53] LABS: ANION GAP 13.8 (8-16); CARBON DIOXIDE 25.3 mmol/L (21-32); CHLORIDE 110 mmol/L (98-107); GLUCOSE 96 mg/dL (74-106); POTASSIUM 3.1 mmol/L (3.5-5.1); SODIUM SERUM 146 mmol/L (136-145); UREA NITROGEN, BLOOD 17 mg/dL (7-18)
[2019-02-23 07:27] LABS: HEMATOCRIT 27.4 % (36-48); HEMOGLOBIN 8.3 g/dL (12.0-16.0); MEAN CORPUSCULAR HEMOGLOBIN 24 pg (27-31); MEAN CORPUSCULAR HGB CONC 30 g/dL (33-37); MEAN CORPUSCULAR VOLUME 77.9 fL (80-94); PLATELET COUNT (AUTO) 283 K/uL (140-450); RED BLOOD CELL COUNT(AUTO) 3.51 MIL/uL (4.20-5.40); RED CELL DISTRIBUTION WIDTH 23.3 % (11.6-13.7); WHITE BLOOD COUNT (AUTO) 11.8 K/uL (4.8-10.8)
--- NOTE | 2019-02-23 07:29 | NUR ---
ENDORSED TO AM SHIFT RN IN STABLE CONDITION FOR CONTINUITY OF CARE.
--- NOTE | 2019-02-23 07:30 | NUR ---
RECEIVED BEDSIDE REPORT FROM MOLECULAR BIOLOGIST NURSE FOR CONTINUITY OF CARE. PATIENT IS AWAKE AND RESTING ON BED. PATIENT SPEAKS WELSH AND AAOX4. RESPIRATION EVEN AND UNLABORED ON RA. DENIED PAIN, SOB AND NAUSEA. NO SIGNS OF DISTRESS NOTED. PICC LINE DOUBLE LUMEN ON ALEXANDER, CLEAN AND INTACT, INFUSING PER MD ORDER. SKIN INTACT AND CLEAN. PATIENT IS INCONTINENT AND BEDREST. NPO AFTER MIDNIGHT ENFORCED AND SIGN POSTED ON DOOR. DISCUSSED PLAN OF CARE WITH PATIENT AND PATIENT VERBALIZED UNDERSTANDING. TELE MONITOR ATTACHED. SAFETY MEASURES IN PLACE. BED IN LOW POSITION AND CALL LIGHT WITHIN REACH. FALL RISK PROTOCOL IN PLACE AND BED ALARM ACTIVATED. INSTRUCTED PATIENT TO USE THE CALL LIGHT FOR ANY ASSISTANCE AND PATIENT WAS AWARE.
[2019-02-23 08:00] VITALS: BP 130/53
[2019-02-23] MEDS ORDERED: DEXT 5% / NACL 0.45% 500 ML IV SCH (08:45)
[2019-02-23] MEDS: metFORMIN 500 MG TAB PO SCH ×2 (09:00→19:47)
[2019-02-23] MEDS: SPIRONOLACTONE 25 MG TAB PO SCH (09:00)
[2019-02-23] MEDS: amLODIPine 5 MG TAB PO SCH (09:00)
[2019-02-23] MEDS: METOPROLOL SUCCINATE 50 MG TABER PO SCH (09:00)
[2019-02-23] MEDS: SODIUM FERRIC GLUCONATE 125 MG in NACL 0.9% 100 ML IV SCH (09:07)
[2019-02-23] MEDS: LACTULOSE 20 GM/30 ML UDC PO SCH (09:08)
[2019-02-23] MEDS: LACTOBACILLUS RHAMNOSUS GG 1 EACH CAP PO SCH (09:09)
[2019-02-23] MEDS: FUROSEMIDE 20 MG/2 ML VIAL IVP SCH ×2 (09:09→19:47)
[2019-02-23] MEDS: SENNA 8.6 MG TAB PO SCH (09:09)
[2019-02-23] MEDS: DORZOLAMIDE 2% OP 10 ML BTL OP SCH ×2 (09:12→19:52)
[2019-02-23] MEDS: Carboxymethylcellulos/Glycerin (Refresh Optive Eye Drops) OP SCH ×4 (09:13→19:50)
[2019-02-23] MEDS: TIMOLOL OP SCH (09:14)
[2019-02-23] MEDS: BRIMONIDINE TARTRATE OP SCH (09:14)
[2019-02-23] MEDS: SUPREP BOWEL PREP KIT 354 ML SOLN.RECON PO SCH (09:15)
--- NOTE | 2019-02-23 09:15 | NUR ---
ADMINISTERED BOWEL PREP MEDS PER MD ORDER. HOLD PO BP MEDS AND METFORMIN, DR RENNER AWARE AND AGREED DUE TO PATIENT IS GOING TO COLONOSCOPY. Addendum: 02/23/19 at 0928 by Aspen Kwan RN *NOT FINISHED ABOVE CHARTING, ACCIDENTALLY SAVED*. DR MEDEROS WAS AWARE. ENCOURAGED PATIENT TO FINISH BOWEL PREP SOLUTION AND PATIENT VERBALIZED UNDERSTANDING.
[2019-02-23] MEDS ORDERED: BRIMONIDINE TARTRATE 0.2% OP 5 ML BTL BOTH EYES SCH ×2 (09:30→21:00)
[2019-02-23] MEDS ORDERED: TIMOLOL OP 0.5% 5 ML BTL BOTH EYES SCH ×2 (09:31→21:00)
[2019-02-23] MEDS ORDERED: POTASSIUM CHLORIDE 40 MEQ, LIDOCAINE MPF 1% 25 MG in NACL 0.9% 250 ML IV SCH (10:00)
[2019-02-23] MEDS ORDERED: fentaNYL 0.05 MG/ML VIAL ONE (10:14)
[2019-02-23] MEDS ORDERED: diphenhydrAMINE 50 MG/ML VIAL ONE (10:15)
[2019-02-23] MEDS ORDERED: MIDAZOLAM 2 MG/2 ML VIAL ONE ×2 (10:15)
--- NOTE | 2019-02-23 10:25 | NUR ---
ADMINISTERED EYE DROPS AND POTASSIUM VIA IPVB PER MD ORDER, MEDS EDUCATION PROVIDED TO PATIENT AND PATIENT VERBALIZED UNDERSTANDING. NO SIGNS OF DISTRESS NOTED. TELE MONITOR ATTACHED. SAFETY MEASURES IN PLACE. BED IN LOW POSITION AND CALL LIGHT WITHIN REACH. FALL RISK PROTOCOL IN PLACE AND BED ALARM ACTIVATED.
--- NOTE | 2019-02-23 10:30 | NUR ---
PATIENT IS OFF UNIT TO OR ACCOMPANIED BY OR NURSE AN. PATIENT IS IN STABLE CONDITION.
[2019-02-23] MEDS: MIDAZOLAM 2 MG/2 ML VIAL IVP ONE ×2 (11:01→12:27)
[2019-02-23] MEDS: fentaNYL 0.05 MG/ML VIAL IVP ONE ×2 (11:02→12:27)
[2019-02-23 11:16] LABS: LYMPHOCYTES % (MANUAL) 18 % (20-46); MONOCYTES % (MANUAL) 4 % (5-12)
[2019-02-23 12:05] VITALS: BP 123/69
--- NOTE | 2019-02-23 12:05 | NUR ---
PATIENT CAME BACK TO HER ROOM ACCOMPANIED BY OR NURSE AN. VITAL SIGNS TAKEN; TEMP 97.4, BP 123/69, PULSE 72, RR 19,SPO2 96%, DENIED PAIN. PATIENT IS AWAKE AND DRINKING WATER ON BED AT THIS TIME. NO SIGNS OF DISTRESS NOTED. SAFETY MEASURES IN PLACE. BED IN LOW POSITION AND CALL LIGHT WITHIN REACH. FALL RISK PROTOCOL IN PLACE AND BED ALARM ACTIVATED. INSTRUCTED PATIENT TO USE THE CALL LIGHT FOR ANY ASSISTANCE AND PATIENT WAS AWARE.
[2019-02-23] MEDS ORDERED: POTASSIUM CHLORIDE 20% 40 MEQ/15 ML UDC GT SCH (12:15)
[2019-02-23] MEDS ORDERED: FER325 PO (12:25)
[2019-02-23] MEDS: FERROUS SULFATE 325 MG TABEC PO SCH ×2 (12:25→17:29)
--- NOTE | 2019-02-23 12:25 | NUR ---
ADMINISTERED FERROUS SULFATE VIA PO PER MD ORDER, PATIENT TOLERATED WELL. MED EDUCATION PROVIDED TO PATIENT AND PATIENT VERBALIZED UNDERSTANDING. POTASSIUM CONTINUED INFUSING PER MD ORDER. CHECKED PATIENT'S BLOOD GLUCOSE AND RECEIVED 160, AWAITING FOR PATIENT'S LUNCH TRAY TO ADMINISTER INSULIN COVERAGE. PATIENT AWAKE AND RESTING ON BED AT THIS TIME. NO SIGNS OF DISTRESS. TELE MONITOR ATTACHED. SAFETY MEASURES IN PLACE. BED IN LOW POSITION AND CALL LIGHT WITHIN REACH. FALL RISK PROTOCOL IN PLACE AND BED ALARM ACTIVATED. INSTRUCTED PATIENT TO USE THE CALL LIGHT FOR ANY ASSISTANCE AND PATIENT WAS AWARE.
[2019-02-23] MEDS ORDERED: SPIR25TA PO (12:26)
[2019-02-23] MEDS ORDERED: PANT40EC28 PO (12:26)
[2019-02-23] MEDS ORDERED: LISI5TAB18 PO (12:26)
[2019-02-23] MEDS ORDERED: LACT10SO11 PO (12:26)
[2019-02-23] MEDS ORDERED: LISI10TA11 PO (12:31)
--- NOTE | 2019-02-23 12:33 | NUR ---
NOTIFIED DR MEDEROS THAT DR FINN HAS ORDER ANOTHER DOSE OF POTASSIUM [address] MEDEROS, HOLD THE 40 EMQ. NON-ADMINISTER PER MD ORDER.
[2019-02-23] MEDS: INSULIN LISPRO SLIDING SCALE 100 UNITS/ML VIAL SUBQ PRN ×3 (13:02→19:58)
--- NOTE | 2019-02-23 13:04 | NUR ---
PATIENT RECEIVED HER LUNCH TRAY AND EATING LUNCH AT THIS TIME. ADMINISTERED 2 UNIT OF INSULIN HUMALOG PER SLIDING SCALE, MED EDUCATION PROVIDED TO PATIENT AND PATIENT VERBALIZED UNDERSTANDING. PATIENT DENIED PAIN, NAUSEA, VOMITING, AND SOB. NO SIGNS OF DISTRESS NOTED. SAFETY MEASURES IN PLACE. BED IN LOW POSITION AND CALL LIGHT WITHIN REACH. TELE MONITOR ATTACHED. INSTRUCTED PATIENT TO USE THE CALL LIGHT FOR ANY ASSISTANCE AND PATIENT WAS AWARE.
[2019-02-23] MEDS ORDERED: SUCR1TAB35 PO (14:09)
--- NOTE | 2019-02-23 14:15 | NUR ---
ADMINISTERED ANTIBIOTIC ROCEPHIN VIA IVPB. PT EDUCATED ON MEDICATION PURPOSE, SIDE EFFECTS. PT. VERBALIZES UNDERSTANDING. BED IN LOW POSITION. CALL LIGHT WITHIN REACH.
--- NOTE | 2019-02-23 15:10 | NUR ---
INFORMED PATIENT THAT SHE WILL BE TRANSFER BACK TO [facility] AND PATIENT WAS AWARE. PATIENT IS RESTING ON BED AT THIS TIME. NO SIGNS OF DISTRESS NOTED. SAFETY MEASURES IN PLACE. BED IN LOW POSITION AND CALL LIGHT WITHIN REACH. FALL RISK PROTOCOL INITIALED AND BED ALARM ACTIVATED. INSTRUCTED PATIENT TO USE THE CALL LIGHT FOR ANY ASSISTANCE AND PATIENT SAID OK.
--- NOTE | 2019-02-23 15:20 | NUR ---
Emergency Department Director Note: I faxed patient's clinical information to [facility]. Per Inspector Penetrant Cathy, patient is not on isolation. Per Bailee from [facility] , patient may return to room 21A, accepting MD is . Per Zabrina from [facility], she will arrange transportation and call me back with transportation details.
--- NOTE | 2019-02-23 16:20 | NUR ---
Dairy Specialist Note: I called and spoke with Zabrina from [facility] , she stated she did not remember to call me back and stated [place] transportation will be here at 4:30pm today to supervisor opening and picking patient. I spoke with patient's nurse Aspen, she stated patient is not ready to be discharged. I called Zabrina again and requested for her to please reschedule transportation and contact nurses' station and provide RN Aspen with transportation details. Per Zabrina, she will reschedule transportation. patient may return to room 21A at [facility], accepting MD is .
[2019-02-23] MEDS ORDERED: INFLUENZA VACCINE QUAD 0.5 ML SYR IMVAC PRN (16:30)
[2019-02-23] MEDS ORDERED: PNEUMOCOCCAL VACCINE 23 MCG/0.5 ML VIAL IMVAC SCH (16:30)
[2019-02-23 16:59] VITALS: BP 118/64
--- NOTE | 2019-02-23 17:44 | NUR ---
ADMINISTERED SCHEDULED MEDICATIONS. EDUCATED PT ON MEDICATION PURPOSE AND SIDE EFFECTS. ASSESSED PATIENT FOR ALLERGY, PATIENT DENIED ALLERGIC TO EGG, BANANA, AVOCADO, AND KIWI. ADMINISTERED FLU AND PNA VACCINES VIA IM, PATIENT TOLERATED WELL. VACCINATION EDUCATION PROVIDED TO PATIENT AND PATIENT VERBALIZED UNDERSTANDING. PATIENT IS EATING DINNER AT THIS TIME. AWARE OF TRANSFER BACK TO [facility] AROUND 8 PM. TELE MONITOR ATTACHED. BED IN LOW POSITION AND CALL LIGHT WITHIN REACH. INSTRUCTED PATIENT TO USE THE CALL LIGHT FOR ANY ASSISTANCE AND PATIENT SAID OK.
--- NOTE | 2019-02-23 17:50 | NUR ---
CALLED SHELLY DAUGHTER AND INFORMED THAT PATIENT IS GOING TO TRANSFER BACK TO [facility] AT 8PM. SHELLY WAS AWARE OF THE TRANSFER.
--- NOTE | 2019-02-23 18:01 | NUR ---
PATIENT RECEIVED HER DINNER TRAY AND EATING DINNER AT THIS TIME. ADMINISTERED 4 UNIT OF INSULIN HUMALOG PER SLIDING SCALE, MED EDUCATION PROVIDED TO PATIENT AND PATIENT VERBALIZED UNDERSTANDING. NO SIGNS OF DISTRESS NOTED. SAFETY MEASURES IN PLACE. BED IN LOW POSITION AND CALL LIGHT WITHIN REACH. TELE MONITOR ATTACHED. INSTRUCTED PATIENT TO USE THE CALL LIGHT FOR ANY ASSISTANCE AND PATIENT WAS AWARE.
--- NOTE | 2019-02-23 18:05 | NUR ---
CALLED [facility] AND GAVE FULL REPORT TO KISHA APPLE. ANSWERED ALL AMBIKA'S QUESTIONS AND PROVIDED A CALL BACK NUMBER FOR FURTHER QUESTIONS. AMBIKA WAS AWARE THAT PATIENT IS GOING TO TRANSFER TO HER FACILITY AT 8 PM.
--- NOTE | 2019-02-23 19:15 | NUR ---
ENDORSED PT AT BEDSIDE TO CHAIRMAN & CEO NURSE. PT IS AWAKE AND RESTING ON BED. DENIED PAIN, DIZZINESS AND SOB. RESP EVEN AND UNLABORED ON RA. NO SIGNS OF DISTRESS NOTED. TELE MONITOR ATTACHED. PT IS IN STABLE CONDITION. INFORMED CHAIRMAN & CEO NURSE THAT PATIENT'S HOME MEDS ALL EYE DROPS ARE IN PATIENT'S CASSETTE AND CHAIRMAN & CEO NURSE WAS AWARE THAT PATIENT IS GOING TO TRANSFER TO [facility] AND TOMATO PULPER OPERATOR TIME 8 PM. PICC LINE NEED TO BE REMOVED PRIOR TO TRANSFER.
[2019-02-23 19:43] VITALS: BP 118/54
[2019-02-23] MEDS: ATORVASTATIN 20 MG TAB PO SCH (19:47)
[2019-02-23] MEDS: NETARSUDIL MESYLAT OP SCH (19:53)
[2019-02-23] MEDS: LATANOPROST OP SCH (19:53)
[2019-02-23] MEDS: INSULIN LANTUS 100 UNITS/ML 10 ML VIAL SUBQ SCH (19:57)
--- NOTE | 2019-02-23 20:00 | NUR ---
ALL NIGHT MEDS GIVEN TO PT. BLOOD SUGAR 198. INSULIN COVERAGE HUMALOG 2 UNITS GIVEN SUB Q. LANTUS 20 UNITS SUB Q SCHEDULED ALSO GIVEN SUBQ.
--- NOTE | 2019-02-23 20:10 | NUR ---
RT UPPER ARM PICC LINE DISCONTINUED PER MD ORDER. PT TOLERATED WELL. DRESSING APPLIED . NO BLEEDING NOTED.
--- NOTE | 2019-02-23 20:30 | NUR ---
TRANSPORTER CAME .REPORT GIVEN. PT GOING BACK TO [facility]. WITH ALL THE DISCHARGE PAPERS GIVEN TO PT/TRANSPORTER. OWN MEDS (EYEDROPS) WITH PT UPON DISCHARGE. ALL ID BANDS REMOVED. TELE BOX ALSO REMOVED PRIOR TO DISCHARGE. PT DISCHARGED IN STABLE CONDITION.
[2019-02-24] MEDS ORDERED: PANTOPRAZOLE 40 MG TABEC PO SCH (07:30)
[2019-02-24] MEDS ORDERED: LACTULOSE 20 GM/30 ML UDC PO SCH (09:00)
== END 2019-02-23 20:30 | DRG 280 ==
LOC: MED 10:41 → UNDOADMIN 18:36 → MTU 18:36 → MMU 18:36 → MTU 02-20 21:35 → MMU 02-21 22:40
PROVIDERS: ADMIT General Practice; ATTEND General Practice
PROC: 30233N1 Transfusion of Nonautologous Red Blood Cells into Peripheral Vein, Percutaneous Approach (ICD-10-PCS; principal; 2019-02-20)
PROC: 0DB68ZX Excision of Stomach, Via Natural or Artificial Opening Endoscopic, Diagnostic (ICD-10-PCS; 2019-02-23)
PROC: 0DBG8ZZ Excision of Left Large Intestine, Via Natural or Artificial Opening Endoscopic (ICD-10-PCS; 2019-02-23)
PROC: 3E02340 Introduction of Influenza Vaccine into Muscle, Percutaneous Approach (ICD-10-PCS; 2019-02-23)
PROC: 3E0234Z Introduction of Serum, Toxoid and Vaccine into Muscle, Percutaneous Approach (ICD-10-PCS; 2019-02-23)
PROC: 0DB58ZX Excision of Esophagus, Via Natural or Artificial Opening Endoscopic, Diagnostic (ICD-10-PCS; 2019-02-23 10:30)
DX: I13.0 Hypertensive heart and chronic kidney disease with heart failure and stage 1 through stage 4 chronic kidney disease, or unspecified chronic kidney disease (principal); I21.A1 Myocardial infarction type 2; N17.0 Acute kidney failure with tubular necrosis; I50.43 Acute on chronic combined systolic (congestive) and diastolic (congestive) heart failure; E43 Unspecified severe protein-calorie malnutrition; R65.10 Systemic inflammatory response syndrome (SIRS) of non-infectious origin without acute organ dysfunction; Z68.41 Body mass index [BMI] 40.0-44.9, adult; I82.431 Acute embolism and thrombosis of right popliteal vein; K22.10 Ulcer of esophagus without bleeding; N39.0 Urinary tract infection, site not specified; D50.9 Iron deficiency anemia, unspecified; I25.10 Atherosclerotic heart disease of native coronary artery without angina pectoris; K44.9 Diaphragmatic hernia without obstruction or gangrene; E11.65 Type 2 diabetes mellitus with hyperglycemia; E83.51 Hypocalcemia; G47.00 Insomnia, unspecified; E02 Subclinical iodine-deficiency hypothyroidism; N18.9 Chronic kidney disease, unspecified; E11.22 Type 2 diabetes mellitus with diabetic chronic kidney disease; E66.01 Morbid (severe) obesity due to excess calories; K63.5 Polyp of colon; Z74.01 Bed confinement status; Z95.1 Presence of aortocoronary bypass graft; Z88.5 Allergy status to narcotic agent; Z79.84 Long term (current) use of oral hypoglycemic drugs; Z79.899 Other long term (current) drug therapy; Z79.4 Long term (current) use of insulin; Z90.49 Acquired absence of other specified parts of digestive tract; Z23 Encounter for immunization
CPT/HCPCS: 36415; 71045; 71275; 80048; 80053; 81001; 82272; 82306; 82607; 82728; 82746; 82948; 83036; 83540; 83605; 83690; 83735; 83880; 84100; 84134; 84436; 84443; 84484; 85018; 85025; 85045; 85610; 86677; 86704; 86706; 86708; 86709; 86803; 86886; 86900; 86901; 86920; 87040; 87081; 87086; 87340; 90732; 92610; 93005; 93970; 94640; 96365; 96372; 96375; 97110; 97112; 97116; 97161-GP; 97530; 99291; C1751; C1758; J0696; J1200; J1650; J1815; J1940; J2001; J2250; J2405; J2916; J3010; J3475; J3480; J7030; J7042; J7060; J7613; P9016; Q0092; Q0163; Q9967

== ENCOUNTER 2019-05-18 07:55 | Emergency (ER) | payer OTHER ==
[~2019-05-18] VITALS: Ht 170.2 cm; Wt 108.9 kg
[~2019-05-18 07:55] MED LIST changes: -ASPI-1718 PO; -ATOR20TA40 PO; +ATOR40TA PO; +BRIM5SOL2 OP; +CARB15SO23 OP; -CEFT1VIA7 IJ; +DORZ10SO1 OP; -GABA-638 PO; +INSU100S22 SUBQ; -LACT10CA1 PO; +LACT10SO11 PO; +LISI10TA11 PO; +METO25TA PO; -METO25TE2 PO; +NETA2.5D3 OP; +PANT40EC28 PO; -RIVA15TA1 PO; +SPIR25TA PO
--- NOTE | 2019-05-18 07:55 | NUR ---
Patient BIBA ALS, transferred to bed 9. RN evaluating patient at bedside.
--- NOTE | 2019-05-18 07:56 | NUR ---
MANNY FROM [facility] C/O COUGH, GENERALIZED WEAKNESS/SOB X 2 DAYS. RECIEVED BREATHING TX IN ROUTE. PMH- ANEMIA, CHF, DM, ESOPHAGITIS, CAD, DVT, GERD, NEUROPATHY, INSOMNIA, HTN, GLAUCOMA, MUSCLE WEAKNESS, OBESITY, HYPERLIPIDEMIA. PATIENT STATES PAIN OF 0/10 AT THIS TIME. PATIENT POSITIONED FOR COMFORT; HOB ELEVATED; BEDRAILS UP X2; BED DOWN. ER MD MADE AWARE OF PT STATUS.
--- NOTE | 2019-05-18 07:58 | NUR ---
Dr. Moser is evaluating the patient at bedside.
[2019-05-18 08:06] VITALS: BP 143/51
[2019-05-18] MEDS ORDERED: NACL 0.9% 500 ML IV SCH (08:20)
--- NOTE | 2019-05-18 08:31 | NUR ---
# 14 FR Urinary catheter inserted utilizing sterile technique. Immediate return of 200 ml YELLOW urine noted. Urine sample collected and sent to lab. Pt tolerated procedure WELL.
--- NOTE | 2019-05-18 08:38 | NUR ---
X RAY AT BEDSIDE
--- NOTE | 2019-05-18 08:42 | NUR ---
RT AT BEDSIDE
[2019-05-18 08:53] LABS: APPEARANCE,URINE CLEAR (CLEAR); BILIRUBIN,URINE NEGATIVE (NEGATIVE); BLOOD, URINE NEGATIVE (NEGATIVE); COLOR,URINE YELLOW (YELLOW); LEUKOCYTE ESTERASE ,URINE NEGATIVE (NEGATIVE); NITRITE, URINE NEGATIVE (NEGATIVE); UGLUCOSE NEGATIVE (NEGATIVE)
[2019-05-18 08:56] LABS: BASOPHILS % (AUTO) 0.6 % (0.0-2.0); HEMATOCRIT 35.1 % (36-48); HEMOGLOBIN 11.2 g/dL (12.0-16.0); LYMPHOCYTES # (AUTO) 1.1 K/uL (2.5-16.5); LYMPHOCYTES % (AUTO) 13.4 % (20.5-51.1); MEAN CORPUSCULAR HEMOGLOBIN 26 pg (27-31); MEAN CORPUSCULAR HGB CONC 32 g/dL (33-37); MEAN CORPUSCULAR VOLUME 83.1 fL (80-94); MONOCYTES # (AUTO) 0.5 K/uL (0.8-1.0); MONOCYTES % (AUTO) 5.8 % (1.7-9.3); NEUTROPHILS # (AUTO) 6.4 K/uL (1.8-7.7); NEUTROPHILS % (AUTO) 80.2 % (42.2-75.2); PLATELET COUNT (AUTO) 207 K/uL (140-450); RED BLOOD CELL COUNT(AUTO) 4.22 MIL/uL (4.20-5.40); RED CELL DISTRIBUTION WIDTH 20.5 % (11.6-13.7)
[2019-05-18 09:10] LABS: ANION GAP 15.7 (8-16); CARBON DIOXIDE 25.9 mmol/L (21-32); CHLORIDE 105 mmol/L (98-107); CREATININE 1.5 mg/dL (0.6-1.3); GLUCOSE 228 mg/dL (74-106); POTASSIUM 3.6 mmol/L (3.5-5.1); SODIUM SERUM 143 mmol/L (136-145); UREA NITROGEN, BLOOD 28 mg/dL (7-18)
[2019-05-18 09:12] LABS: RBC,URINE 0-5 /HPF (0-5); WBC,URINE 0-5 /HPF (0-5)
[2019-05-18 09:13] LABS: PROTHROMBIN TIME 10.2 secs (10.8-13.4)
[2019-05-18 09:16] LABS: ALBUMIN 2.7 g/dL (3.4-5.0); ASPARTATE AMINOTRANSFERASE 241 U/L (15-37); TOTAL BILIRUBIN 0.4 mg/dL (0.0-1.0)
[2019-05-18] MEDS ORDERED: NITROGLYCERIN 2% 1 GM PKT TP ONE (09:50)
[2019-05-18] MEDS ORDERED: FUROSEMIDE 40 MG/4 ML VIAL IVP ONE (09:50)
[2019-05-18] MEDS ORDERED: ALBUTEROL SULFATE/IPRATROPIU 3 ML SOL IH ONE (10:45)
[2019-05-18] MEDS ORDERED: ENOXAPARIN 120 MG/0.8 ML SYR SUBQ ONE (10:50)
[2019-05-18] MEDS ORDERED: ASPIRIN 81 MG TAB.CHEW PO ONE (10:50)
[2019-05-18] MEDS ORDERED: ENOXAPARIN 100 MG/ML SYR SUBQ ONE (10:57)
[2019-05-18] MEDS ORDERED: PANTOPRAZOLE 40 MG INJ VIAL IVP ONE (11:15)
--- NOTE | 2019-05-18 13:09 | NUR ---
reported given to renetta [facility].
--- NOTE | 2019-05-18 13:12 | NUR ---
[facility] at bedside for transport to [facility] ER.
--- NOTE | 2019-05-18 13:28 | NUR ---
Patient to be transferred to [facility]. Is being transferred due to HIGH LEVEL. Receiving facility has accepting physician and available space. ER physician has signed transfer form. Patient or responsible green party has agreed to transfer and signed form. Patient belongings inventoried and will be sent with patient. Copy of nursing notes, lab reports, EKG, Physicians Orders and X-rays to be sent with patient. Report called to EREN BEARD at receiving facility. [facility] service has been called for transfer. ETA is 20 MINS.
[2019-05-18 13:30] VITALS: BP 123/62
== END 2019-05-18 13:31 | disposition short-term general hospital (02) ==
LOC: MED 07:55
DX: I21.3 ST elevation (STEMI) myocardial infarction of unspecified site (principal); I11.0 Hypertensive heart disease with heart failure; I50.9 Heart failure, unspecified; N28.9 Disorder of kidney and ureter, unspecified; K21.9 Gastro-esophageal reflux disease without esophagitis; E11.9 Type 2 diabetes mellitus without complications; Z79.899 Other long term (current) drug therapy; Z79.84 Long term (current) use of oral hypoglycemic drugs; Z95.1 Presence of aortocoronary bypass graft
CPT/HCPCS: 36415; 36600; 71045; 80053; 81001; 82803; 83605; 83880; 84484; 85025; 85610; 85730; 87040; 87086; 93005; 94640; 96361; 96372; 96374; 96375; 99291; C1758; C9113; J1650; J1940; J7030; J7620; Q0092

== ENCOUNTER 2019-07-26 14:09 | Inpatient (IN) | payer OTHER, SELFPAY ==
[~2019-07-26] VITALS: Ht 157.5 cm; Wt 89.8 kg
[2019-07-26 14:27] VITALS: BP 148/66
--- NOTE | 2019-07-26 14:38 | NUR ---
BIBA [facility] BLS PT HAD 2 WEEKS OF SOB WITH PRODUCTIVE COUGH NO FEVER , PT AWAKE , ALERT, AFIBRILE ,SCE , CBS BLF , ROUND SOFT NABS NONTENDER ABDOMEN, LE NO EDEMA. PMHX CHF , DM ,PN.
--- NOTE | 2019-07-26 14:44 | NUR ---
NOTIFIED ADMITTING THAT WANTS TO ADMIT BED 10
--- NOTE | 2019-07-26 14:44 | NUR ---
NOTIFIED RESIDENTS IS ADMITTING BED 10
[2019-07-26] MEDS ORDERED: DEXTROSE 50% 50 ML SYR IVP PRN (14:45)
[2019-07-26] MEDS ORDERED: ONDANSETRON 4 MG/2 ML VIAL IM/IVP PRN (14:45)
[2019-07-26] MEDS ORDERED: DOCUSATE SODIUM 100 MG GELCAP PO PRN (14:45)
[2019-07-26] MEDS ORDERED: TIM.5OS OP (15:01)
[2019-07-26] MEDS ORDERED: RIVA20TA PO (15:01)
[2019-07-26] MEDS ORDERED: ATRN INH (15:01)
[2019-07-26] MEDS ORDERED: CALC500C17 PO (15:01)
[2019-07-26] MEDS ORDERED: XALOS OP (15:01)
[2019-07-26] MEDS ORDERED: AMOX-999 PO (15:01)
[2019-07-26] MEDS ORDERED: SIME80TA22 PO (15:01)
[2019-07-26] MEDS ORDERED: BENZ-196 PO (15:01)
[2019-07-26] MEDS ORDERED: ONDA4TAB PO (15:01)
[2019-07-26] MEDS ORDERED: IMO2 PO (15:01)
[2019-07-26] MEDS ORDERED: [UNRECOGNIZED DRUG - CODE] PO (15:01)
[2019-07-26 15:08] LABS: BASOPHILS % (AUTO) 0.5 % (0.0-2.0); EOSINOPHILS # (AUTO) 0.3 K/uL (0-0.4); EOSINOPHILS % (AUTO) 3.2 % (0.0-4.0); HEMATOCRIT 33.4 % (36-48); HEMOGLOBIN 10.3 g/dL (12.0-16.0); LYMPHOCYTES # (AUTO) 1.6 K/uL (2.5-16.5); LYMPHOCYTES % (AUTO) 19.6 % (20.5-51.1); MEAN CORPUSCULAR HEMOGLOBIN 27 pg (27-31); MEAN CORPUSCULAR HGB CONC 31 g/dL (33-37); MEAN CORPUSCULAR VOLUME 86.5 fL (80-94); MONOCYTES # (AUTO) 0.4 K/uL (0.8-1.0); MONOCYTES % (AUTO) 5.4 % (1.7-9.3); NEUTROPHILS # (AUTO) 5.7 K/uL (1.8-7.7); NEUTROPHILS % (AUTO) 71.3 % (42.2-75.2); PLATELET COUNT (AUTO) 256 K/uL (140-450); RED BLOOD CELL COUNT(AUTO) 3.86 MIL/uL (4.20-5.40); RED CELL DISTRIBUTION WIDTH 18.5 % (11.6-13.7)
[2019-07-26 15:25] LABS: PROTHROMBIN TIME 13.2 secs (10.8-13.4)
[2019-07-26 15:28] LABS: ANION GAP 11.9 (8-16); ASPARTATE AMINOTRANSFERASE 15 U/L (15-37); CARBON DIOXIDE 31.6 mmol/L (21-32); CHLORIDE 107 mmol/L (98-107); CREATININE 1.3 mg/dL (0.6-1.3); GLUCOSE 165 mg/dL (74-106); POTASSIUM 4.5 mmol/L (3.5-5.1); SODIUM SERUM 146 mmol/L (136-145); TOTAL BILIRUBIN 0.5 mg/dL (0.0-1.0); UREA NITROGEN, BLOOD 18 mg/dL (7-18)
[2019-07-26] MEDS ORDERED: ALBUTEROL HFA MDI 90 MCG/ACTUATION 8 GM INH SCH (15:30)
[2019-07-26 15:35] LABS: C-REACTIVE PROTEIN QUANT 1.4 mg/dL (0.0-0.9)
[2019-07-26 15:37] LABS: RSV NEGATIVE (NEGATIVE)
--- NOTE | 2019-07-26 15:38 | NUR ---
Patient will be admitted to care of Dr blanco. Admited to [facility]. Will go to room 113. Belongings list completed. Report to merrick flores.
[2019-07-26 15:40] VITALS: BP 133/54
--- NOTE | 2019-07-26 15:40 | NUR ---
RECEIVED PT FROM ED NURSE. PT IS ALERT, AWAKE WITH NO SIGNS OF DISTRESS NOTED. SKIN IS INTACT WITH NO IV ACCESS. PT IS ON 3L ROOM AIR WITH DRY COUGH PRESENT. PT DOES NOT COMPLAIN OF PAIN. VITAL SIGNS ARE STABLE WITH NO FEVER. SAFETY MEASURES IN PLACE,BED IN LOW POSITION, CALL LIGHT WITHIN REACH, AND WILL CONTINUE TO MONITOR.
[2019-07-26] MEDS ORDERED: SIMETHICONE 80 MG TAB.CHEW PO PRN (15:55)
[2019-07-26] MEDS ORDERED: LOPERAMIDE 2 MG CAP PO PRN (15:55)
[2019-07-26] MEDS ORDERED: cloNIDine 0.1 MG TAB PO PRN (15:55)
[2019-07-26] MEDS ORDERED: CALCIUM CARBONATE 500 MG TAB.CHEW PO PRN (15:55)
[2019-07-26 15:57] LABS: MAGNESIUM 1.2 mg/dL (1.8-2.4); PHOSPHORUS 3.6 mg/dL (2.5-4.9); THYROID STIMULATING HORMONE 3.34 uIU/mL (0.34-3.74)
--- NOTE | 2019-07-26 16:18 | NUR ---
CALLED DR NEISHA ANTHONY [phone] FOR EKG CLARIFICATION WREATH MAKER TO READ: DR. CORNEJO REASON: BASELINE
[2019-07-26] MEDS: BLOOD GLUCOSE MONITORING 1 DEV DEV FS SCH ×2 (16:30→21:11)
[2019-07-26] MEDS ORDERED: FUROSEMIDE 40 MG/4 ML VIAL IVP SCH (17:13)
--- NOTE | 2019-07-26 17:45 | NUR ---
IV ABX NOT STARTED YET, NO IV ACCESS. PER STEFANI BARRETO ALEX PICC LINE NURSE IS COMING FOR MIDLINE PLACEMENT. CHAYA-RN ASSIGNED MADE AWARE.
[2019-07-26] MEDS: PIPERACILLIN/TAZOBACTAM 3.375 GM in DEXTROSE 5% 50 ML IV SCH (18:00)
--- NOTE | 2019-07-26 18:00 | NUR ---
PT IS AWAKE AND ALERT WITH DINNER TRAY AT BEDSIDE. DOES NOT COMPLAIN OF ANY PAIN AT THIS TIME. REINFORCED THE NEED TO KEEP NASAL CANNULA ON. PTS DAUGHTER CALLED AND ASKED FOR CONDITION. SAFETY MEASURES IN PLACE.
[2019-07-26] MEDS: NACL 0.9% 1,000 ML IV SCH (18:18)
[2019-07-26] MEDS: FERROUS SULFATE 325 MG TABEC PO SCH (18:26)
--- NOTE | 2019-07-26 19:05 | NUR ---
RECEIVED PT [id number] ,ALTHOUGH CAN EASILY FORGETS THE TOPIC BUT CAN ANSWER THE QUESTION CORRECTLY , CAN ADDRESS THE NEEDS , SHE SAID SHE HAS ON AND OFF SOB - W/ O2 AT 3LPM/NC - O2 SAT WNL . NO IV ACCESS AT THIS TIME . - FOR PICC LINE INSERTION - W/ CONSENT SIGNED . FALL RISK - SAFETY MEASURE IN PLACE - CALL LIGHT WITHIN REACH. INCONTINENT - USES DIAPER . POC DISCUSSED AND VERBALIZE FAIR UNDERSTANDING - RE INFORCEMENT NEEDED . WILL CONT. TO MONITOR.
--- NOTE | 2019-07-26 19:05 | NUR ---
PT ENDORSED TO COMPUTER OPERATIONS TECHNICIAN NURSE. PT IS CURRENTLY AWAKE AND LAYING IN BED WITH NO COMPLAINTS OF PAIN AND IN STABLE CONDITION.
[2019-07-26 20:00] VITALS: BP 130/59
[2019-07-26] MEDS: ATORVASTATIN 20 MG TAB PO SCH (20:36)
[2019-07-26] MEDS ORDERED: metFORMIN 500 MG TAB PO SCH (21:00)
[2019-07-26] MEDS: METOPROLOL 25 MG TAB PO SCH (21:00)
--- NOTE | 2019-07-26 21:00 | NUR ---
ZOSYN AND LASIX NOT GIVEN DUE TO NO IV ACCESS.
[2019-07-26] MEDS: TIMOLOL OP 0.5% 5 ML BTL BOTH EYES SCH (21:08)
[2019-07-26] MEDS: DORZOLAMIDE 2% OP 10 ML BTL BOTH EYES SCH (21:08)
[2019-07-26] MEDS: LATANOPROST 0.005% OP 2.5 ML BTL BOTH EYES SCH (21:11)
[2019-07-26] MEDS: metFORMIN 500 MG TAB PO SCH (21:15)
--- NOTE | 2019-07-26 22:00 | NUR ---
MADE ROUNDS , NO S/S OF ACUTE DISTRESS NOTED AT THIS TIME . CALL LIGHT WITHIN REACH.
--- NOTE | 2019-07-26 23:00 | NUR ---
MARY PICC LINE NURSE INFORMED ROB BOX HINGE AND LOCK ATTACHER THAT HE WILL COME TO DO MID LINE IN LACE PAPER MACHINE OPERATOR.
[2019-07-27] VITALS: BP 130/60
[2019-07-27] MEDS: ACETAMINOPHEN 325 MG TAB PO PRN ×2 (02:44→16:38)
[2019-07-27] MEDS: BENZONATATE 100 MG CAPLF PO PRN (02:44)
[2019-07-27 04:00] VITALS: BP 130/60
[2019-07-27] MEDS: PIPERACILLIN/TAZOBACTAM 3.375 GM in DEXTROSE 5% 50 ML IV SCH ×6 (06:00→23:32)
[2019-07-27] MEDS ORDERED: glipiZIDE 10 MG TAB ONE (06:21)
[2019-07-27] MEDS ORDERED: PANTOPRAZOLE 40 MG TABEC PO ONE (06:22)
[2019-07-27] MEDS: BLOOD GLUCOSE MONITORING 1 DEV DEV FS SCH ×4 (06:45→21:25)
--- NOTE | 2019-07-27 06:45 | NUR ---
REFUSED NAZ CATH - WILL INFORM MIHIR.
--- NOTE | 2019-07-27 07:00 | NUR ---
INFORM RESIDENT - PT. LLOYD ELLIOTT.
--- NOTE | 2019-07-27 07:10 | NUR ---
RECEIVED REPORT FROM NIGHT NURSE. PT IS STABLE, SAFETY MEASURES IN PLACE, WILL CONTINUE TO MONITOR.
[2019-07-27 07:22] LABS: BASOPHILS # (AUTO) 0.1 K/uL (0.00-0.22); EOSINOPHILS # (AUTO) 0.4 K/uL (0-0.4); EOSINOPHILS % (AUTO) 4.5 % (0.0-4.0); LYMPHOCYTES # (AUTO) 2.2 K/uL (2.5-16.5); LYMPHOCYTES % (AUTO) 25.4 % (20.5-51.1); MEAN CORPUSCULAR HEMOGLOBIN 27 pg (27-31); MEAN CORPUSCULAR HGB CONC 31 g/dL (33-37); MEAN CORPUSCULAR VOLUME 85.9 fL (80-94); MONOCYTES # (AUTO) 0.6 K/uL (0.8-1.0); MONOCYTES % (AUTO) 7.4 % (1.7-9.3); NEUTROPHILS # (AUTO) 5.3 K/uL (1.8-7.7); NEUTROPHILS % (AUTO) 61.7 % (42.2-75.2); PLATELET COUNT (AUTO) 224 K/uL (140-450); RED BLOOD CELL COUNT(AUTO) 3.72 MIL/uL (4.20-5.40); WHITE BLOOD COUNT (AUTO) 8.5 K/uL (4.8-10.8)
[2019-07-27 07:24] LABS: ANION GAP 10.5 (8-16); CARBON DIOXIDE 28.7 mmol/L (21-32); CHLORIDE 109 mmol/L (98-107); GLUCOSE 140 mg/dL (74-106); POTASSIUM 4.2 mmol/L (3.5-5.1); SODIUM SERUM 144 mmol/L (136-145); UREA NITROGEN, BLOOD 18 mg/dL (7-18)
[2019-07-27 07:32] LABS: CHOL/HDL RATIO 2.9 (1-4.5)
[2019-07-27 07:35] LABS: MAGNESIUM 1.3 mg/dL (1.8-2.4); PHOSPHORUS 3.5 mg/dL (2.5-4.9)
[2019-07-27 08:00] VITALS: BP 128/64
--- NOTE | 2019-07-27 08:41 | NUR ---
PATIENT HAS BEEN SCREENED AND CATEGORIZED MODERATE NUTRITION RISK. PATIENT WILL BE SEEN WITHIN 3-5 DAYS OF ADMISSION. 07/29/19 07/31/[address]
[2019-07-27] MEDS: FUROSEMIDE 40 MG/4 ML VIAL IVP SCH ×2 (08:42→08:45)
[2019-07-27] MEDS: PANTOPRAZOLE 40 MG TABEC PO SCH (08:46)
[2019-07-27] MEDS: metFORMIN 500 MG TAB PO SCH ×2 (08:46→21:27)
[2019-07-27] MEDS: RIVAROXABAN 15 MG TAB PO SCH (08:50)
[2019-07-27] MEDS: glipiZIDE 10 MG TAB PO SCH ×2 (08:51→16:35)
[2019-07-27] MEDS: FERROUS SULFATE 325 MG TABEC PO SCH ×3 (08:51→16:34)
[2019-07-27] MEDS: SPIRONOLACTONE 25 MG TAB PO SCH (08:53)
[2019-07-27] MEDS: LATANOPROST 0.005% OP 2.5 ML BTL BOTH EYES SCH (08:53)
[2019-07-27] MEDS ORDERED: LISINOPRIL 10 MG TAB PO SCH (09:00)
[2019-07-27] MEDS ORDERED: RIVAROXABAN 10 MG TAB PO SCH (09:00)
[2019-07-27] MEDS: TIMOLOL OP 0.5% 5 ML BTL BOTH EYES SCH ×2 (09:00→21:00)
--- NOTE | 2019-07-27 09:00 | NUR ---
MEDICATIONS DUE GIVEN PT IS STABLE AND SAFETY MEASURES IN PLACE, WILL CONTINUE TO MONITOR.
--- NOTE | 2019-07-27 09:50 | NUR ---
PICC LINE NURSE, MARY IS IN THE PT'S ROOM AND INSERTING A MIDLINE TO PT, TIME OUT WAS DONE RELAYED BY RELIEF ORIENTEE CHARGE NURSE, SARA.
--- NOTE | 2019-07-27 09:54 | NUR ---
R UA MIDLINE INSERTED BY PICC NURSE MARY. LINE FUNCTIONING WELL. PAPERWORK SIGNED BY ME SINCE NURSE JAMSHID UNABLE TO SIGN AT THE TIME.
--- NOTE | 2019-07-27 10:53 | NUR ---
DC PLANN[age] YRS OLD FEMALE PATIENT WAS ADMITTED FROM [facility] WITH A DX OF HYPOXIA ROUE OUT COVID-19. PT HAS A HX OF CHF, VA S/P CABG, DM LEFT EYE BLIND AND GERD. CXR SHOWED CARDIOMEGALY WITH PULMONARY VASCULAR CONGESTION, SMALL RIGHT PLEURAL EFFUSION WITH ASSOCIATED ATELECTASIS. ORDERED RT PROTOCOL ,MDI ALBUTEROL NEEDED,STARTED IV ZOSYN , IV LASIX STRICT I&O DAILY WEIGHT AND WATER MAINTENANCE SUPERVISOR CONSULT. DC PLAN TO GO BACK TO [facility]. CM TO FOLLOW. Addendum: 07/28/19 at 1102 by Cathy Lott CM DC PLANNING: COVID 19 TEST (-) O2 SAT 96% , CONTINUE IV ZOSYN AND MAG-RIDER FOR LOW MG 1.3 SEEN BY WATER MAINTENANCE SUPERVISOR DR HENDRIX AGREED TO CONTINUE WITH XERALTO AND STATIN . DC PLAN TO GO BACK TO [facility] WHEN STABLE. CM TO FOLLOW. Addendum: 07/29/19 at 1200 by Cathy Lott CM DC PLANNING: SEEN BY WATER MAINTENANCE SUPERVISOR DR CORNEJO CONTINUE IV LASIX. [id number] SHOWED POSITIVE FOR UTI , CONTINUE IV ZOSYN . MG LEVEL 1.7 MG RIDER ORDERED. MONITOR LABS DAILY. DC PLAN TO GO BACK TO [facility] ON 07/30/19 CM TO FOLLOW Addendum: 07/30/19 at 1127 by Aditi Hassan NEGATIVE FOR COVID 19. ON ZOSYN IV. URINE CS PENDING. NO MRSA ISOLATED. BLOOD CS NO GROWTH AFTER [address] CARDIO CONSULT IN PLACE. - WILL CHANGE LASIX IV TO PO. DC PLAN BACK TO [facility] ONCE STABLE. Addendum: 07/30/19 at 1515 by Cathy Lott DC PLANNING: FAXED ALL THE PAPER WORK TO [facility] , SPOKE WITH KOSTA AND PT CAN GO TO ROOM 25 # TO GIVE REPORT [phone] AND CALL [facility] OUTBOARD MOTOR ASSEMBLER NUNO WALTER [phone] FOR TRANSPORT AUTHORIZATION AND CALL [facility] OR [facility] [phone]. NOTIFIED CHARGE NURSE KSENIA.
--- NOTE | 2019-07-27 11:30 | NUR ---
BLOOD GLUCOSE MONITORING DONE WILL CONTINUE TO MONITOR.
[2019-07-27 12:00] VITALS: BP 140/74
[2019-07-27] MEDS: INSULIN LISPRO SLIDING SCALE 100 UNITS/ML VIAL SUBQ PRN (12:55)
[2019-07-27] MEDS: DORZOLAMIDE 2% OP 10 ML BTL BOTH EYES SCH ×2 (12:56→13:13)
[2019-07-27] MEDS: NACL 0.9% 1,000 ML IV SCH (14:45)
[2019-07-27] MEDS: MAG SULF 2000 MG/WATER PREMIX 50 ML IV SCH ×2 (14:47→16:34)
[2019-07-27 16:00] VITALS: BP 161/68
--- NOTE | 2019-07-27 16:30 | NUR ---
BLOOD GLUCOSE MONITORING DONE AND MEDICATIONS DUE GIVEN, PT COMPLAINS OF ABDOMINAL PAIN AND WAS GIVEN PAIN MEDICATIONS, PT IS SLEEPING NOW AND STABLE. WILL CONTINUE TO MONITOR,
--- NOTE | 2019-07-27 19:05 | NUR ---
ENDORSED TO NIGHT NURSE. PT IS STABLE.
--- NOTE | 2019-07-27 19:06 | NUR ---
RECEIVED REPORT FROM DAY SHIFT NURSE. PATIENT IN BED. AWAKE AND ALERT. ON O2 3LPM/NC. RESPIRATIONS EVEN AND UNLABORED. IVF INFUSING WELL. PICC LINE ON R ARM CLEAN, PATENT, AND INTACT. SKIN IS WARM AND DRY. DENIES ANY PAIN OR DISCOMFORT AT THIS TIME. PLAN OF CARE DISCUSSED. WILL CONTINUE TO MONITOR.
[2019-07-27 20:00] VITALS: BP 135/59
--- NOTE | 2019-07-27 20:05 | NUR ---
ROUNDS DONE. PATIENT IN BED RESTING WITH HOB ELEVATED. VITAL SIGNS ARE STABLE AT THIS TIME. DENIES ANY PAIN OR DISTRESS. NO REQUESTS MADE. KEPT COMFORTABLE. WILL CONTINUE TO MONITOR.
[2019-07-27] MEDS: METOPROLOL 25 MG TAB PO SCH (21:27)
[2019-07-27] MEDS: ATORVASTATIN 20 MG TAB PO SCH (21:27)
--- NOTE | 2019-07-27 21:30 | NUR ---
ROUNDS DONE. PATENT IS IN BED WITH HOB ELEVATED. PATIENT ON O2 3LPM/NC. RESPIRATIONS EVEN AND UNLABORED. VITAL SIGNS ARE STABLE. SCHEDULED MEDICATIONS GIVEN ORDERED. IVF INFUSING WELL. DENIES ANY PAIN OR DISCOMFORT AT THIS TIME. PERINEAL CARE DONE AND TOLERATED WELL. SAFETY MEASURES IN PLACE. BED IN LOW POSITION, SIDE RAILS RAISED, CALL LIGHT WITHIN REACH. WILL CONTINUE TO MONITOR.
--- NOTE | 2019-07-27 23:39 | NUR ---
PATIENT IN BED WITH HOB ELEVATED. VITAL SIGNS STABLE. O2 3LPM/NC IN PLACE. SCHEDULED MEDICATION GIVEN. DENIES ANY PAIN OR DISCOMFORT AT THIS TIME. PATIENT KEPT COMFORTABLE. SAFETY MEASURES IN PLACE. WILL CONTINUE TO MONITOR.
[2019-07-28] VITALS: BP 107/44
--- NOTE | 2019-07-28 02:20 | NUR ---
PATIENT SLEEPING. RESPIRATIONS EVEN AND UNLABORED. O2 2LPM/NC IN PLACE. IVF INFUSING WELL. SAFETY MEASURES IN PLACE. WILL CONTINUE TO MONITOR.
[2019-07-28 04:00] VITALS: BP 115/56
[2019-07-28] MEDS: PIPERACILLIN/TAZOBACTAM 3.375 GM in DEXTROSE 5% 50 ML IV SCH ×3 (05:12→17:36)
[2019-07-28] MEDS: BLOOD GLUCOSE MONITORING 1 DEV DEV FS SCH ×4 (05:21→20:22)
--- NOTE | 2019-07-28 05:28 | NUR ---
BLOOD SUGAR 51. 50ML D50 GIVEN IVP ORDERED. OFFERED APPLE JUICE. PATIENT IS ASYMPTOMATIC. WILL CONTINUE TO MONITOR.
[2019-07-28 06:10] LABS: T4 (THYROXINE) 7.5 ug/dL (4.5-12.0)
--- NOTE | 2019-07-28 06:18 | NUR ---
BLOOD SUGAR 91. DENIES ANY DISCOMFORT. WILL CONTINUE TO MONITOR. Addendum: 07/28/19 at 0620 by Ryan Tinajero RN INCORRECT VALUE ABOVE. BLOOD SUGAR IS 179. PATIENT IS ASYMPTOMATIC. WILL CONTINUE TO MONITOR.
[2019-07-28] MEDS: PANTOPRAZOLE 40 MG TABEC PO SCH (06:42)
[2019-07-28] MEDS: glipiZIDE 10 MG TAB PO SCH ×2 (06:42→17:34)
--- NOTE | 2019-07-28 07:00 | NUR ---
ENDORSED TO DAY SHIFT NURSE. PATIENT IN STABLE CONDITION. PLAN OF CARE DISCUSSED.
--- NOTE | 2019-07-28 07:10 | NUR ---
RECEIVED FROM HOTEL CLERK NURSEBABITA. PT. IS ASLEEP AND IN BED. PT. IS ON 3L O2 VIA NC WITH O2 STAT OF 98%. PICC LINE PRESENT ON THE RIGHT ARM WITH NS RUNNING AT 20ML/HR. NO SIGNS OF DISTRESS NOTED. PT. IS IN STANDARD ISOLATION. FALL PRECAUTION IN PLACE. REVIEWED PLAN OF CARE. CALL LIGHT WITHIN REACH. WILL CONTINUE TO MONITOR.
[2019-07-28 07:19] LABS: BASOPHILS # (AUTO) 0.1 K/uL (0.00-0.22); EOSINOPHILS # (AUTO) 0.3 K/uL (0-0.4); EOSINOPHILS % (AUTO) 3.1 % (0.0-4.0); HEMATOCRIT 31.2 % (36-48); HEMOGLOBIN 9.7 g/dL (12.0-16.0); LYMPHOCYTES # (AUTO) 1.7 K/uL (2.5-16.5); LYMPHOCYTES % (AUTO) 20.8 % (20.5-51.1); MEAN CORPUSCULAR HEMOGLOBIN 27 pg (27-31); MEAN CORPUSCULAR HGB CONC 31 g/dL (33-37); MONOCYTES # (AUTO) 0.5 K/uL (0.8-1.0); MONOCYTES % (AUTO) 6.3 % (1.7-9.3); NEUTROPHILS # (AUTO) 5.7 K/uL (1.8-7.7); NEUTROPHILS % (AUTO) 68.8 % (42.2-75.2); PLATELET COUNT (AUTO) 242 K/uL (140-450); RED BLOOD CELL COUNT(AUTO) 3.63 MIL/uL (4.20-5.40); RED CELL DISTRIBUTION WIDTH 18.1 % (11.6-13.7); WHITE BLOOD COUNT (AUTO) 8.4 K/uL (4.8-10.8)
[2019-07-28 07:22] LABS: ANION GAP 14.2 (8-16); CARBON DIOXIDE 27.4 mmol/L (21-32); CHLORIDE 105 mmol/L (98-107); CREATININE 1.3 mg/dL (0.6-1.3); GLUCOSE 208 mg/dL (74-106); POTASSIUM 3.6 mmol/L (3.5-5.1); SODIUM SERUM 143 mmol/L (136-145); UREA NITROGEN, BLOOD 18 mg/dL (7-18)
[2019-07-28 07:28] LABS: MAGNESIUM 1.6 mg/dL (1.8-2.4); PHOSPHORUS 3.6 mg/dL (2.5-4.9)
[2019-07-28 08:00] VITALS: BP 132/85
[2019-07-28] MEDS: metFORMIN 500 MG TAB PO SCH ×2 (08:23→21:25)
[2019-07-28] MEDS: FERROUS SULFATE 325 MG TABEC PO SCH ×3 (08:23→17:35)
[2019-07-28] MEDS: SPIRONOLACTONE 25 MG TAB PO SCH (08:24)
[2019-07-28] MEDS: TIMOLOL OP 0.5% 5 ML BTL BOTH EYES SCH ×2 (08:34→21:00)
[2019-07-28] MEDS: DORZOLAMIDE 2% OP 10 ML BTL BOTH EYES SCH ×2 (08:35→21:41)
[2019-07-28] MEDS: FUROSEMIDE 40 MG/4 ML VIAL IVP SCH (08:39)
[2019-07-28] MEDS: RIVAROXABAN 15 MG TAB PO SCH (08:39)
--- NOTE | 2019-07-28 08:50 | NUR ---
MORNING MEDICATIONS GIVEN. NO SIGNS OF DISTRESS NOTED. BP 132/65, HR 85. WILL CONTINUE TO MONITOR.
--- NOTE | 2019-07-28 10:10 | NUR ---
SCREEN FOR LOW HIRO SCALE AT RISK, CONTINUE TO FOLLOW PRESSURE ULCER PREVENTION INTERVENTIONS. -TURN AND REPOSITION PATIENT Q 2H -ASSESS AND MONITOR SKIN CONDITION DURING POSITION CHANGE -OFFLOAD BILATERAL HEELS BY PLACING PILLOWS UNDER CALVES AT ALL TIMES, UNLESS OTHERWISE CONTRAINDICATED -PRESSURE REDISTRIBUTION BY PLACING PILLOWS AND OFFLOADING SACRALCOCCYX -KEEP SKIN CLEAN AND DRY AT ALL TIMES.
--- NOTE | 2019-07-28 11:40 | NUR ---
BLOOD GLUCOSE CHECK WITH VALUE OF 181. INSULIN COVERAGE NEEDED. WILL CONTINUE TO MONITOR.
[2019-07-28 12:00] VITALS: BP 132/75
--- NOTE | 2019-07-28 12:10 | NUR ---
AFTERNOON MEDICATIONS GIVEN. 2 UNITS OF INSULIN SUBQ GIVEN FOR BLOOD GLUCOSE OF 181. NO SIGNS OF DISTRESS NOTED. WILL CONTINUE TO MONITOR.
[2019-07-28] MEDS: INSULIN LISPRO SLIDING SCALE 100 UNITS/ML VIAL SUBQ PRN ×2 (12:38→21:19)
[2019-07-28] MEDS ORDERED: MAG SULF 2000 MG/WATER PREMIX 50 ML IV SCH (14:00)
[2019-07-28] MEDS: NACL 0.9% 1,000 ML IV SCH (14:45)
[2019-07-28 16:00] VITALS: BP 112/54
--- NOTE | 2019-07-28 16:30 | NUR ---
BLOOD GLUCOSE CHECKED WITH VALUE OF 114. INSULIN COVERAGE NOT NEEDED. WILL CONTINUE TO MONITOR.
--- NOTE | 2019-07-28 17:30 | NUR ---
AFTERNOON MEDICATIONS GIVEN. NO SIGNS OF DISTRESS NOTED. WILL CONTINUE TO MONITOR.
--- NOTE | 2019-07-28 19:25 | NUR ---
RECEIVED BEDSIDE REPORT FROM AM SHIFT KATERNIE, FOR PT'S CONTINUITY OF CARE. PT IS AWAKE, RESTING IN BED, IS ON FREELANCE DESIGNER, ON ROOM AIR, HAS RIGHT UPPER ARM PICC LINE, NO SIGNS OF DISTRESS OR DISCOMFORT. EXPLAINED TO PT THE MODEL MAKER PLASTER ROUTINE, PT STATED "OK". SAFETY MEASURES IN PLACE AND CALL LIGHT IS WITHIN REACH. WILL MONITOR PT THROUGHOUT SHIFT.
--- NOTE | 2019-07-28 19:29 | NUR ---
ENDORSED TO LAW ENFORCEMENT INSTRUCTOR NURSE FOR CONTINUITY OF CARE
[2019-07-28 20:00] VITALS: BP 146/61
[2019-07-28] MEDS: LATANOPROST 0.005% OP 2.5 ML BTL BOTH EYES SCH (21:00)
[2019-07-28] MEDS: ATORVASTATIN 20 MG TAB PO SCH (21:25)
[2019-07-28] MEDS: METOPROLOL 25 MG TAB PO SCH (21:25)
[2019-07-28] MEDS ORDERED: CRUSHER, PILL MC ONE (21:30)
--- NOTE | 2019-07-28 21:30 | NUR ---
ADMINISTERED SCHEDULED AND INSULIN PER PROTOCOL MEDICATIONS ORDERED. PT TOLERATED THEM WELL. OTHER OPTH DROPS MEDICATION NOT GIVEN, MED NOT AVAILABLE, HOSPITAL ADMINISTRATOR AWARE. PT TEACHING GIVEN, PT VERBALIZED UNDERSTANDING. PROVIDED PT WITH SNACKS AND PT MADE COMFORTABLE. PT DENIES ANY PAIN, DISCOMFORT, OR TROUBLE BREATHING. WILL CONTINUE TO MONITOR PT.
--- NOTE | 2019-07-28 22:30 | NUR ---
MADE ROUNDS. PT ASLEEP WITH NO SIGNS OF DISTRESS. OXYGEN 2L VIA NC IN PLACE, CALL LIGHT IS WITHIN REACH, AND SAFETY MEASURES IN PLACE. WILL CONTINUE TO MONITOR PT.
[2019-07-29] VITALS: BP 105/47
--- NOTE | 2019-07-29 | NUR ---
VS CHECKED AND CHARTED. PT AWAKE, DENIES ANY PAIN. REPOSITIONED PT AND MADE COMFORTABLE. WILL CONTINUE TO MONITOR PT.
[2019-07-29] MEDS: PIPERACILLIN/TAZOBACTAM 3.375 GM in DEXTROSE 5% 50 ML IV SCH ×5 (00:21→23:43)
[2019-07-29] MEDS: BENZONATATE 100 MG CAPLF PO PRN ×3 (01:34→21:03)
--- NOTE | 2019-07-29 01:34 | NUR ---
PT C/O COUGH. STATES, "NEED SOMETHING FOR THE MUCUS". ADMINISTERED PRN PO COUGH MEDICATION ORDERED. PT TOLERATED IT WELL. PT MADE COMFORTABLE, PT EDUCATION GIVEN. REORIENTED PT TO THE CALL LIGHT. WILL CONTINUE TO MONITOR PT.
--- NOTE | 2019-07-29 02:15 | NUR ---
MADE ROUNDS. PT ASLEEP WITH NO SIGNS OF DISTRESS. NASAL CANNULA OFF PT, REAPPLIED, PT STILL ASLEEP. WILL CONTINUE TO MONITOR PT.
--- NOTE | 2019-07-29 02:55 | NUR ---
PT CALLED TO BE PULLED UP. PT ALSO REPOSITIONED AND MADE COMFORTABLE. RE-INSTRUCTED PT TO KEEP ARM STRAIGHT FOR IV. REINFORCED IV ARMBOARD. PT VERBALIZED UNDERSTANDING. OXYGEN NASAL CANNULA IN PLACE, HOB ELEVATED, SAFETY MEASURES IN PLACE, AND CALL LIGHT IS WITHIN REACH.
[2019-07-29 04:00] VITALS: BP 117/49
--- NOTE | 2019-07-29 04:30 | NUR ---
PT CHANGED AND REPOSITIONED. VS CHECKED AND CHARTED. COLLECTED URINE THROUGH STRAIGHT CATH, SPECIMEN SENT TO LAB. PT TOLERATED ACTIVITY FAIRLY. WILL CONTINUE TO MONITOR PT.
[2019-07-29 05:46] LABS: APPEARANCE,URINE CLOUDY (CLEAR); BILIRUBIN,URINE NEGATIVE (NEGATIVE); BLOOD, URINE TRACE-I (NEGATIVE); COLOR,URINE YELLOW (YELLOW); LEUKOCYTE ESTERASE ,URINE 1+ (NEGATIVE); NITRITE, URINE NEGATIVE (NEGATIVE); PH,URINE 5.5 (5.0-9.0); UGLUCOSE NEGATIVE (NEGATIVE)
[2019-07-29] MEDS: BLOOD GLUCOSE MONITORING 1 DEV DEV FS SCH ×4 (06:32→21:01)
--- NOTE | 2019-07-29 06:35 | NUR ---
ADMINISTERED SCHEDULED MEDICATIONS ORDERED. BLOOD GLUCOSE CHECKED AND CHARTED. NO INSULIN COVERAGE NEEDED. GLIPIZIDE NOT ADMINISTERED DT BLOOD GLUCOSE POC - 77. PROVIDED PT WITH APPLE JUICE AND VANILLA PUDDING, HOB ELEVATED. PT MADE COMFORTABLE. PT DENIES ANY PAIN OR DISCOMFORT. SAFETY MEASURES IN PLACE AND CALL LIGHT IS WITHIN REACH. WILL ENDORSE TO AM SHIFT RN FOR PT'S CONTINUITY OF CARE.
[2019-07-29] MEDS: PANTOPRAZOLE 40 MG TABEC PO SCH (06:37)
[2019-07-29] MEDS: glipiZIDE 10 MG TAB PO SCH (06:44)
[2019-07-29 06:53] LABS: RBC,URINE 0-5 /HPF (0-5)
--- NOTE | 2019-07-29 07:20 | NUR ---
RECEIVED PT. FROM PANEL BEATER NURSEHARRISON. PT. IS ASLEEP AND IN BED. PT. IS ON 2L O2 VIA NC WITH O2 STAT OF 98%. MIDLINE PRESENT ON RIGHT ARM WITH NS RUNNING 20ML/HR. NO SIGNS OF DISTRESS NOTED. FALL PRECAUTION INITIATED. REVIEWED PLAN OF CARE. CALL LIGHT WITHIN REACH. WILL CONTINUE TO MONITOR.
[2019-07-29 07:23] LABS: ANION GAP 11.4 (8-16); CARBON DIOXIDE 30.2 mmol/L (21-32); CHLORIDE 103 mmol/L (98-107); CREATININE 1.6 mg/dL (0.6-1.3); GLUCOSE 82 mg/dL (74-106); POTASSIUM 3.6 mmol/L (3.5-5.1); SODIUM SERUM 141 mmol/L (136-145); UREA NITROGEN, BLOOD 19 mg/dL (7-18)
[2019-07-29 07:28] LABS: MAGNESIUM 1.7 mg/dL (1.8-2.4); PHOSPHORUS 3.9 mg/dL (2.5-4.9)
[2019-07-29 07:32] LABS: BASOPHILS # (AUTO) 0.1 K/uL (0.00-0.22); BASOPHILS % (AUTO) 0.9 % (0.0-2.0); EOSINOPHILS # (AUTO) 0.2 K/uL (0-0.4); EOSINOPHILS % (AUTO) 2.4 % (0.0-4.0); HEMATOCRIT 30.4 % (36-48); HEMOGLOBIN 9.7 g/dL (12.0-16.0); LYMPHOCYTES # (AUTO) 1.9 K/uL (2.5-16.5); LYMPHOCYTES % (AUTO) 20.4 % (20.5-51.1); MEAN CORPUSCULAR HEMOGLOBIN 27 pg (27-31); MEAN CORPUSCULAR HGB CONC 32 g/dL (33-37); MEAN CORPUSCULAR VOLUME 84.5 fL (80-94); MONOCYTES # (AUTO) 0.7 K/uL (0.8-1.0); NEUTROPHILS # (AUTO) 6.4 K/uL (1.8-7.7); NEUTROPHILS % (AUTO) 68.3 % (42.2-75.2); PLATELET COUNT (AUTO) 240 K/uL (140-450); RED CELL DISTRIBUTION WIDTH 17.5 % (11.6-13.7); WHITE BLOOD COUNT (AUTO) 9.4 K/uL (4.8-10.8)
[2019-07-29 08:00] VITALS: BP 110/48
--- NOTE | 2019-07-29 09:00 | NUR ---
MORNING MEDICATIONS GIVEN. BP 120/86, HR 71. NO SIGNS OF DISTRESS. WILL CONTINUE TO MONITOR.
[2019-07-29] MEDS: metFORMIN 500 MG TAB PO SCH ×2 (09:06→21:00)
[2019-07-29] MEDS: SPIRONOLACTONE 25 MG TAB PO SCH (09:06)
[2019-07-29] MEDS: DORZOLAMIDE 2% OP 10 ML BTL BOTH EYES SCH ×2 (09:07→21:02)
[2019-07-29] MEDS: FERROUS SULFATE 325 MG TABEC PO SCH ×3 (09:07→16:54)
[2019-07-29] MEDS: FUROSEMIDE 40 MG/4 ML VIAL IVP SCH (09:07)
[2019-07-29] MEDS: RIVAROXABAN 15 MG TAB PO SCH (09:17)
[2019-07-29] MEDS: TIMOLOL OP 0.5% 5 ML BTL BOTH EYES SCH ×2 (09:18→21:01)
[2019-07-29] MEDS ORDERED: MAG SULF 2000 MG/WATER PREMIX 50 ML IV SCH (10:00)
--- NOTE | 2019-07-29 11:30 | NUR ---
BLOOD GLUCOSE CHECK WITH VALUE OF 117. NO INSULIN COVERAGE NEEDED. AFTERNOON MEDICATIONS GIVEN. NO SIGNS OF DISTRESS. WILL CONTINUE TO MONITOR.
[2019-07-29 12:39] VITALS: BP 126/58
--- NOTE | 2019-07-29 13:44 | NUR ---
07/29/19 RD INITIAL ASSESSMENT COMPLETED PLEASE REFER TO NUTRITION ASSESSMENT UNDER CARE ACTIVITY FOR ESTIMATED NUTRITIONAL NEEDS. 1. CONTINUE CCHO 60GM AND CARDIAC DIET TOLERATED 2. RD WILL PROVIDE NUTRITION EDUCATION NEXT VISIT 3. RD TO FOLLOW-UP 3-5 DAYS, MODERATE RISK YASMEEN ROSS RD
[2019-07-29] MEDS: NACL 0.9% 1,000 ML IV SCH (14:45)
[2019-07-29 16:00] VITALS: BP 117/70
[2019-07-29] MEDS: INSULIN LISPRO SLIDING SCALE 100 UNITS/ML VIAL SUBQ PRN (16:58)
--- NOTE | 2019-07-29 17:00 | NUR ---
AFTERNOON MEDICATIONS GIVEN. NO SIGNS OF DISTRESS. BLOOD GLUCOSE CHECK WITH VALUE OF 152. INSULIN COVERAGE NEEDED BUT PT. REFUSED. WILL CONTINUE TO MONITOR.
--- NOTE | 2019-07-29 17:30 | NUR ---
CHANGED PT. NO SIGNS OF DISTRESS NOTED. WILL CONTINUE TO MONITOR.
--- NOTE | 2019-07-29 19:20 | NUR ---
ENDORSED PT. TO LADLE REPAIRMAN NURSELAYO, FOR CONTINUITY OF CARE.
--- NOTE | 2019-07-29 19:21 | NUR ---
RECD. RESTING IN BED, AWAKE, A/OX3. RESPIRATION EVEN AND UNLABORED. ABLE TO VERBALIZED NEEDS. ON 02 AT 2 LITERS VIA N/C, SATURATION AT 95%. WITH IV OF NS AT 20 ML/HR INFUSING, RIGHT UPPER ARM MIDLINE. SIDE RAILS UP, BED IN THE LOWEST POSITION, CALL LIGHT IN REACH. PLAN OF CARE FOR THE SHIFT DISCUSSED. VERBALIZED UNDERSTANDING. DENIES PAIN 0/10.
[2019-07-29 20:00] VITALS: BP 122/53
[2019-07-29] MEDS: ATORVASTATIN 20 MG TAB PO SCH (21:00)
[2019-07-29] MEDS: LATANOPROST 0.005% OP 2.5 ML BTL BOTH EYES SCH (21:00)
[2019-07-29] MEDS: METOPROLOL 25 MG TAB PO SCH (21:00)
--- NOTE | 2019-07-29 21:00 | NUR ---
XALATAN EYE DROPS ENDORSED CAN'T BE FIND, WILL ENDORSED TO AM NURSE TO CALL PHARMACY IN AM.
--- NOTE | 2019-07-29 21:00 | NUR ---
Patient's Plan of Care was discussed and reviewed with PROBATION AGENT: LAYO NINO
--- NOTE | 2019-07-29 23:00 | NUR ---
RESTING IN BED ASLEEP, OFF 02 CANNULA. INSTRUCTED NOT TO TAKE IT OFF. CONTINUED SLEEPING.
[2019-07-30] VITALS: BP 97/40
--- NOTE | 2019-07-30 01:00 | NUR ---
SLEEPING COMFORTABLY IN BED. NO SOB NOTED.
--- NOTE | 2019-07-30 03:15 | NUR ---
INFORMED DR. MEDEROS PATIENT IS COUGHING. WILL ORDER COUGH MEDICINE.
[2019-07-30] MEDS ORDERED: guaiFENesin DM 200/20 MG-10 ML 10 ML UDC PO ONE (03:30)
--- NOTE | 2019-07-30 03:40 | NUR ---
CHECKED PATIENT, SLEEPING COMFORTABLY IN BED, NO COUGHING NOTED.
[2019-07-30 04:00] VITALS: BP 90/49
--- NOTE | 2019-07-30 05:09 | NUR ---
CHECKED PATIENT RESTING COMFORTABLY SLEEPING, NO COUGHING NOTED. TRY TO PUT 02 CANNULA BUT REFUSED, CONTINUED SLEEPING. NO RESPIRATORY DISTRESS NOTED.
[2019-07-30] MEDS: guaiFENesin/CODEINE 100/10MG 5 ML UDC ONE ×2 (05:19→05:23)
[2019-07-30] MEDS: PIPERACILLIN/TAZOBACTAM 3.375 GM in DEXTROSE 5% 50 ML IV SCH ×3 (05:21→17:22)
[2019-07-30] MEDS: BLOOD GLUCOSE MONITORING 1 DEV DEV FS SCH ×4 (06:36→21:07)
[2019-07-30] MEDS ORDERED: guaiFENesin DM 200/20 MG-10 ML 10 ML UDC PO PRN (06:50)
[2019-07-30] MEDS: PANTOPRAZOLE 40 MG TABEC PO SCH (06:54)
[2019-07-30 07:29] LABS: BASOPHILS # (AUTO) 0.1 K/uL (0.00-0.22); BASOPHILS % (AUTO) 0.7 % (0.0-2.0); EOSINOPHILS # (AUTO) 0.2 K/uL (0-0.4); EOSINOPHILS % (AUTO) 2.8 % (0.0-4.0); HEMATOCRIT 31.8 % (36-48); LYMPHOCYTES # (AUTO) 1.6 K/uL (2.5-16.5); LYMPHOCYTES % (AUTO) 20.1 % (20.5-51.1); MEAN CORPUSCULAR HEMOGLOBIN 27 pg (27-31); MEAN CORPUSCULAR HGB CONC 32 g/dL (33-37); MEAN CORPUSCULAR VOLUME 84.9 fL (80-94); MONOCYTES # (AUTO) 0.7 K/uL (0.8-1.0); MONOCYTES % (AUTO) 8.6 % (1.7-9.3); NEUTROPHILS # (AUTO) 5.5 K/uL (1.8-7.7); NEUTROPHILS % (AUTO) 67.8 % (42.2-75.2); PLATELET COUNT (AUTO) 240 K/uL (140-450); RED BLOOD CELL COUNT(AUTO) 3.75 MIL/uL (4.20-5.40); RED CELL DISTRIBUTION WIDTH 18.1 % (11.6-13.7); WHITE BLOOD COUNT (AUTO) 8.2 K/uL (4.8-10.8)
--- NOTE | 2019-07-30 07:30 | NUR ---
AWAKE IN BED, RESPIRATION EVEN AND UNLABORED. INFORMED THAT MD WILL ORDER ROBITUSSIN. ADVISED TO USE IS TO EXERCISE HER LUNGS. ENDORSED TO KISHA LORENZO FOR CONTINUITY OF CARE.
--- NOTE | 2019-07-30 07:35 | NUR ---
RECEIVED BEDSIDE REPORT FROM NIGHTSHIFT NURSE. PT RESTING IN BED. ABLE TO MAKE NEEDS KNOWN. RESPIRATIONS EVEN AND UNLABORED WITH NO SOB OR RESPIRATORY DISTRESS. SKIN WARM AND DRY TO TOUCH. MIDLINE IN RIGHT UPPER ARM 20G IS CLEAN, DRY, AND INTACT. SAFETY MEASURES IN PLACE WILL CONTINUE TO MONITOR
[2019-07-30 07:48] LABS: ANION GAP 11.8 (8-16); CARBON DIOXIDE 32.7 mmol/L (21-32); CHLORIDE 101 mmol/L (98-107); CREATININE 1.7 mg/dL (0.6-1.3); GLUCOSE 109 mg/dL (74-106); POTASSIUM 3.5 mmol/L (3.5-5.1); SODIUM SERUM 142 mmol/L (136-145); UREA NITROGEN, BLOOD 18 mg/dL (7-18)
[2019-07-30 07:53] LABS: MAGNESIUM 1.9 mg/dL (1.8-2.4); PHOSPHORUS 4.4 mg/dL (2.5-4.9)
[2019-07-30 08:00] VITALS: BP 100/57
[2019-07-30] MEDS: RIVAROXABAN 15 MG TAB PO SCH (09:28)
[2019-07-30] MEDS: TIMOLOL OP 0.5% 5 ML BTL BOTH EYES SCH ×2 (09:46→20:40)
[2019-07-30] MEDS: DORZOLAMIDE 2% OP 10 ML BTL BOTH EYES SCH ×2 (09:46→20:40)
[2019-07-30] MEDS: FERROUS SULFATE 325 MG TABEC PO SCH ×3 (09:46→17:12)
--- NOTE | 2019-07-30 09:46 | NUR ---
ADMINISTERED SCHED MED PRESCRIBED PER MD ORDER. PT TOLERATED WELL. MEDICATION EDUCATION PERFORMED. PT VERBALIZED UNDERSTANDING. SAFETY MEASURES IN PLACE. WILL CONTINUE TO MONITOR
[2019-07-30] MEDS: metFORMIN 500 MG TAB PO SCH ×2 (09:47→20:38)
[2019-07-30] MEDS: FUROSEMIDE 20 MG TAB PO SCH (09:47)
[2019-07-30] MEDS: SPIRONOLACTONE 25 MG TAB PO SCH (09:47)
[2019-07-30] MEDS: POTASSIUM CHLORIDE 8 MEQ TABER PO SCH (09:48)
--- NOTE | 2019-07-30 11:30 | NUR ---
BLOOD SUGAR IS 182. INSULIN WILL BE ADMINISTERED PRESCRIBED PER MD ORDER WHEN LUNCH HAS ARRIVED. SAFETY MEASURES IN PLACE. WILL CONTINUE TO MONITOR
--- NOTE | 2019-07-30 12:13 | NUR ---
ADMINISTERED SCHED MED PRESCRIBED PER MD ORDER. PT TOLERATED WELL. MEDICATION EDUCATION PERFORMED. PT VERBALIZED UNDERSTANDING. SAFETY MEASURES IN PLACE. WILL CONTINUE TO MONITOR
[2019-07-30] MEDS: INSULIN LISPRO SLIDING SCALE 100 UNITS/ML VIAL SUBQ PRN ×3 (12:24→21:08)
--- NOTE | 2019-07-30 14:04 | NUR ---
PT RESTING IN BED. ABLE TO MAKE NEEDS KNOWN. RESPIRATIONS EVEN AND UNLABORED WITH NO SOB OR RESPIRATORY DISTRESS. SKIN WARM AND DRY TO TOUCH. SAFETY MEASURES IN PLACE WILL CONTINUE TO MONITOR
[2019-07-30] MEDS: NACL 0.9% 1,000 ML IV SCH (14:51)
[2019-07-30 16:00] VITALS: BP 122/62
--- NOTE | 2019-07-30 16:30 | NUR ---
PT BLOOD SUGAR IS 177. INSULIN WILL BE GIVEN PRESCRIBED PER MD ORDER WITH LUNCH. SAFETY MEASURES IN PLACE. WILL CONTINUE TO MONITOR
--- NOTE | 2019-07-30 17:18 | NUR ---
ADMINISTERED SCHED MED PRESCRIBED PER MD ORDER. PT TOLERATED WELL. MEDICATION EDUCATION PERFORMED. PT VERBALIZED UNDERSTANDING. SAFETY MEASURES IN PLACE. WILL CONTINUE TO MONITOR
--- NOTE | 2019-07-30 19:10 | NUR ---
ENDORSED AT BEDSIDE TO NIGHTSHIFT NURSE. PT IS STABLE
--- NOTE | 2019-07-30 19:20 | NUR ---
RECEIVED FROM AM RN IN BED SLEEPING AT THIS TIME. TOTAL CARE. WILL CONTINUE WITH CARE FOR THIS SHIFT. NO RESTLESSNESS NOTED. IVF SITE INTACT AND NO S/S OF INFILTRATION. TOTAL CARE.
[2019-07-30] MEDS: ATORVASTATIN 20 MG TAB PO SCH (20:38)
[2019-07-30] MEDS: METOPROLOL 25 MG TAB PO SCH (20:39)
[2019-07-30] MEDS: LATANOPROST 0.005% OP 2.5 ML BTL BOTH EYES SCH (20:39)
[2019-07-30 20:44] VITALS: BP 126/68
--- NOTE | 2019-07-30 22:42 | NUR ---
PT. C/O STOMACH GAS AND REQUESTED FOR ANTACID. MEDICATED WITH SIMETHICONE 80 MG TAB. P.O. ABLE TO VERBALIZE NEEDS WELL. ENCOURAGED TO RELAX AND GO TO SLEEP. ":I WILL TRY" CALL LIGHT AT BEDSIDE.
--- NOTE | 2019-07-31 00:10 | NUR ---
SLEEPING. NO RESTLESSNESS. ABLE TO USE CALL LIGHT WHEN SHE NEEDS HELP.
[2019-07-31 00:15] VITALS: BP 101/35
[2019-07-31] MEDS: PIPERACILLIN/TAZOBACTAM 3.375 GM in DEXTROSE 5% 50 ML IV SCH (00:20)
--- NOTE | 2019-07-31 03:28 | NUR ---
PT. BEEN SLEEPING POST ANTACID ADMINISTERED. NO RESTLESSNESS.
[2019-07-31] MEDS: BLOOD GLUCOSE MONITORING 1 DEV DEV FS SCH ×3 (06:07→16:30)
[2019-07-31] MEDS: PANTOPRAZOLE 40 MG TABEC PO SCH (06:07)
--- NOTE | 2019-07-31 06:09 | NUR ---
BLOOD SUGAR CHECK PER FINGERSTICK 133. NO INSULIN COVERAGE DONE. PT. AWAKE AND ALERT. NO PAIN COMPLAINTS. ZOSYN 3.375 IVPB ADMINISTERED.
--- NOTE | 2019-07-31 06:46 | NUR ---
SLEEPING AT THIS TIME. WILL ENDORSE TO AM RN FOR CONTINUITY OF CARE. PT. ABLE TO VERBALIZE SIMPLE NEEDS THIS SHIFT. ABLE TO USE CALL LIGHT FOR HELP. MIDLINE PORTS FLUSHED WITH NS AND PATENT THIS SHIFT.
--- NOTE | 2019-07-31 07:10 | NUR ---
RECEIVED REPORT FROM NIGHT NURSE. PATIENT IN STABLE CONDITION. AWAKE, ALERT, ORIENTED X4. NO DISTRESS NOTED. CALL LIGHT WITHIN REACH.
[2019-07-31 07:16] LABS: BASOPHILS # (AUTO) 0.1 K/uL (0.00-0.22); BASOPHILS % (AUTO) 0.8 % (0.0-2.0); EOSINOPHILS # (AUTO) 0.3 K/uL (0-0.4); EOSINOPHILS % (AUTO) 3.6 % (0.0-4.0); HEMATOCRIT 31.9 % (36-48); HEMOGLOBIN 10.1 g/dL (12.0-16.0); LYMPHOCYTES # (AUTO) 2.4 K/uL (2.5-16.5); LYMPHOCYTES % (AUTO) 29.1 % (20.5-51.1); MEAN CORPUSCULAR HEMOGLOBIN 27 pg (27-31); MEAN CORPUSCULAR HGB CONC 32 g/dL (33-37); MEAN CORPUSCULAR VOLUME 85.2 fL (80-94); MONOCYTES # (AUTO) 0.9 K/uL (0.8-1.0); MONOCYTES % (AUTO) 11.4 % (1.7-9.3); NEUTROPHILS # (AUTO) 4.6 K/uL (1.8-7.7); NEUTROPHILS % (AUTO) 55.1 % (42.2-75.2); PLATELET COUNT (AUTO) 257 K/uL (140-450); RED BLOOD CELL COUNT(AUTO) 3.75 MIL/uL (4.20-5.40); RED CELL DISTRIBUTION WIDTH 17.9 % (11.6-13.7); WHITE BLOOD COUNT (AUTO) 8.3 K/uL (4.8-10.8)
[2019-07-31 07:33] LABS: ANION GAP 12.1 (8-16); CHLORIDE 104 mmol/L (98-107); CREATININE 1.5 mg/dL (0.6-1.3); GLUCOSE 131 mg/dL (74-106); POTASSIUM 4.1 mmol/L (3.5-5.1); SODIUM SERUM 141 mmol/L (136-145); UREA NITROGEN, BLOOD 19 mg/dL (7-18)
[2019-07-31 07:40] LABS: MAGNESIUM 1.8 mg/dL (1.8-2.4); PHOSPHORUS 3.3 mg/dL (2.5-4.9)
[2019-07-31 08:00] VITALS: BP 134/53
[2019-07-31] MEDS ORDERED: PIPE1PDS26 IV (08:38)
[2019-07-31] MEDS: POTASSIUM CHLORIDE 8 MEQ TABER PO SCH (08:40)
[2019-07-31] MEDS: DORZOLAMIDE 2% OP 10 ML BTL BOTH EYES SCH (08:41)
[2019-07-31] MEDS: TIMOLOL OP 0.5% 5 ML BTL BOTH EYES SCH (08:41)
[2019-07-31] MEDS: FERROUS SULFATE 325 MG TABEC PO SCH ×3 (08:41→17:45)
[2019-07-31] MEDS: RIVAROXABAN 15 MG TAB PO SCH (08:44)
[2019-07-31] MEDS: FUROSEMIDE 20 MG TAB PO SCH (08:45)
[2019-07-31] MEDS: SPIRONOLACTONE 25 MG TAB PO SCH (08:45)
[2019-07-31] MEDS ORDERED: CLINICAL MONITORING MC SCH (09:00)
[2019-07-31] MEDS: ACETAMINOPHEN 325 MG TAB PO PRN (10:35)
--- NOTE | 2019-07-31 12:06 | NUR ---
PATIENT IN STABLE CONDITION. NO SOB OR RESPIRATORY DISTRESS NOTED. CALL LIGHT WITHIN REACH.
[2019-07-31] MEDS: INSULIN LISPRO SLIDING SCALE 100 UNITS/ML VIAL SUBQ PRN ×2 (12:29→17:42)
--- NOTE | 2019-07-31 12:54 | NUR ---
REPORT GIVEN TO JIM ABDI FROM [facility] WHERE PATIENT IS TRANSFERRING TO. NOTIFIED DAUGHTER SHELLY ARMSTRONG IN REGARDS TO HER MOTHER DISCHARGING TO [facility].
--- NOTE | 2019-07-31 12:56 | NUR ---
REPORT GIVEN TO ANUSHA FOR CONTINUITY OF CARE.
[2019-07-31 13:35] VITALS: BP 125/51
--- NOTE | 2019-07-31 13:43 | NUR ---
@8879 hrs: CONTACTED SABA REINA OF [facility], TRANSPORT AUTHORIZATION GIVEN ([id number]). SET UP TRANSPORTATION BY [facility], SPOKE WITH LINA, EARLIEST ETA WILL AT 2:30 PM. LUZMARIA MADE AWARE.
[2019-07-31] MEDS: NACL 0.9% 1,000 ML IV SCH (14:45)
[2019-07-31 16:00] VITALS: BP 125/51
--- NOTE | 2019-07-31 17:22 | NUR ---
BLOOD SUGAR CHECKED 200, 2 UNITS OF HUMALOG GIVEN COVERAGE. PT IN STABLE CONDITION.
--- NOTE | 2019-07-31 19:00 | NUR ---
ENDORSED PT TO FARMWORKER POULTRY NURSE. PT IS AWAKE, ALERT, AND LAYING IN BED WITH DINNER AT BEDSIDE. PT IS IN STABLE CONDITION WITH NO SIGNS OF DISTRESS NOTED.
--- NOTE | 2019-07-31 19:00 | NUR ---
RECEIVED PATIENT IN STABLE CONDITION FROM AM SHIFT NURSE FOR CONTINUITY OF CARE. RESPIRATIONS EVEN, UNLABORED. MIDLINE INFUSING FLUIDS WELL. NO C/O PAIN. NO S/SX ACUTE DISTRESS. CALL LIGHT WITHIN REACH. WILL CONTINUE TO MONITOR.
--- NOTE | 2019-07-31 19:21 | NUR ---
CALLED [facility] TWICE TO NOTIFY THAT PT WILL BE PICKED UP VIA [facility] TRANSPORT IN 15 -20MINUTES. NO ONE AT FACILITY ANSWERED. WILL HAVE BOILER FIREMAN NURSE FOLLOW UP
--- NOTE | 2019-07-31 19:45 | NUR ---
CALLED [facility] TO INFORM THEM THAT PATIENT WOULD BE ON THE WAY IN 15 MINS BUT NO ONE ANSWERED TELEPHONE.
--- NOTE | 2019-07-31 19:50 | NUR ---
PATIENT WAS DISCHARGED IN STABLE CONDITION WITH ALL PAPERWORK. Addendum: 07/31/19 at 2010 by Fabby Fontaine RN TRANSPORT VIA [facility] TO [facility].
== END 2019-07-31 19:50 | DRG 177 ==
LOC: MED 14:09 → EEVIPCON 14:09 → MMU 14:54 → MTU 15:30
PROVIDERS: ADMIT General Practice; ATTEND General Practice
PROC: 05HY33Z Insertion of Infusion Device into Upper Vein, Percutaneous Approach (ICD-10-PCS; principal; 2019-07-27)
PROC: B54MZZA Ultrasonography of Right Upper Extremity Veins, Guidance (ICD-10-PCS; 2019-07-27)
DX: J69.0 Pneumonitis due to inhalation of food and vomit (principal); I50.43 Acute on chronic combined systolic (congestive) and diastolic (congestive) heart failure; N17.0 Acute kidney failure with tubular necrosis; E44.1 Mild protein-calorie malnutrition; N39.0 Urinary tract infection, site not specified; E87.0 Hyperosmolality and hypernatremia; E87.2 Acidosis; D68.59 Other primary thrombophilia; I11.0 Hypertensive heart disease with heart failure; Z68.36 Body mass index [BMI] 36.0-36.9, adult; Z88.5 Allergy status to narcotic agent; Z79.899 Other long term (current) drug therapy; K21.9 Gastro-esophageal reflux disease without esophagitis; E11.9 Type 2 diabetes mellitus without complications; Z82.49 Family history of ischemic heart disease and other diseases of the circulatory system; I25.2 Old myocardial infarction; Z03.818 Encounter for observation for suspected exposure to other biological agents ruled out; E83.42 Hypomagnesemia; I48.0 Paroxysmal atrial fibrillation; E66.01 Morbid (severe) obesity due to excess calories; Z95.1 Presence of aortocoronary bypass graft; H40.20X0 Unspecified primary angle-closure glaucoma, stage unspecified; E78.5 Hyperlipidemia, unspecified; H54.8 Legal blindness, as defined in USA; I25.10 Atherosclerotic heart disease of native coronary artery without angina pectoris; Z90.49 Acquired absence of other specified parts of digestive tract; Z86.718 Personal history of other venous thrombosis and embolism; Z79.01 Long term (current) use of anticoagulants; Z71.3 Dietary counseling and surveillance
CPT/HCPCS: 36415; 36600; 71045; 80048; 80053; 81001; 82803; 82948; 83036; 83605; 83690; 83735; 83880; 84100; 84436; 84443; 84484; 85025; 85610; 85730; 86140; 87040; 87081; 87086; 87420; 87804; 93005; 97110; 97112; 97530; 99285; C1758; J1815; J1940; J2543; J3475; J7030; J7060; Q0092

== ENCOUNTER 2019-11-22 15:55 | Inpatient (IN) | payer OTHER, SELFPAY ==
[~2019-11-22] VITALS: Ht 172.7 cm; Wt 131.5 kg
[~2019-11-22 15:55] MED LIST changes: -AMLO2.5T PO; +ATRN INH; +BENZ-196 PO; -CALC-1093 PO; +CALC500C17 PO; -CARB15SO23 OP; +IMO2 PO; -LISI10TA11 PO; +ONDA4TAB PO; +PIPE1PDS26 IV; +RIVA20TA PO; +SIME80TA22 PO; +TIM.5OS OP; +XALOS OP; +[UNRECOGNIZED DRUG - CODE] PO
--- NOTE | 2019-11-22 15:55 | NUR ---
Patient MANNY PRESTON from [facility], transferred to bed 2. RN evaluating patient at bedside.
[2019-11-22 15:59] VITALS: BP 135/78
--- NOTE | 2019-11-22 16:00 | NUR ---
74 YO FEMALE BIBA FOR ABD SWELLING AND BILATERAL LEG SWELLING FOR 1 WEEK. BLE SENSITIVE TO TOUCH.
[2019-11-22] MEDS ORDERED: ACETAMINOPHEN 325 MG TAB PO ONE (16:25)
[2019-11-22] MEDS ORDERED: ALUMINUM HYD/MAG/SIMETHICONE 30 ML UDC PO ONE (16:25)
[2019-11-22 17:00] LABS: BASOPHILS % (AUTO) 0.4 % (0.0-2.0); EOSINOPHILS # (AUTO) 0.2 K/uL (0-0.4); HEMATOCRIT 36.7 % (36-48); HEMOGLOBIN 10.6 g/dL (12.0-16.0); LYMPHOCYTES # (AUTO) 1.3 K/uL (2.5-16.5); LYMPHOCYTES % (AUTO) 15.2 % (20.5-51.1); MEAN CORPUSCULAR HEMOGLOBIN 24 pg (27-31); MEAN CORPUSCULAR HGB CONC 29 g/dL (33-37); MEAN CORPUSCULAR VOLUME 83.1 fL (80-94); MONOCYTES # (AUTO) 0.7 K/uL (0.8-1.0); MONOCYTES % (AUTO) 8.5 % (1.7-9.3); NEUTROPHILS # (AUTO) 6.3 K/uL (1.8-7.7); NEUTROPHILS % (AUTO) 73.9 % (42.2-75.2); PLATELET COUNT (AUTO) 228 K/uL (140-450); RED BLOOD CELL COUNT(AUTO) 4.41 MIL/uL (4.20-5.40); WHITE BLOOD COUNT (AUTO) 8.6 K/uL (4.8-10.8)
[2019-11-22 17:32] LABS: ALBUMIN 2.8 g/dL (3.4-5.0); ANION GAP 14.3 (8-16); ASPARTATE AMINOTRANSFERASE 14 U/L (15-37); CARBON DIOXIDE 27.4 mmol/L (21-32); CHLORIDE 107 mmol/L (98-107); CREATININE 1.1 mg/dL (0.6-1.3); GLUCOSE 133 mg/dL (74-106); POTASSIUM 4.7 mmol/L (3.5-5.1); SODIUM SERUM 144 mmol/L (136-145); TOTAL BILIRUBIN 0.5 mg/dL (0.0-1.0); UREA NITROGEN, BLOOD 21 mg/dL (7-18)
[2019-11-22] MEDS ORDERED: FUROSEMIDE 40 MG/4 ML VIAL IVP ONE ×2 (17:40→21:45)
--- NOTE | 2019-11-22 17:42 | NUR ---
Note rich in [facility] - 11/22/19 at 1742 by MAGO CREATININE LEVEL TOO HIGH. CT WILL BE DONE WITHOUT CONTRAST.
--- NOTE | 2019-11-22 18:16 | NUR ---
PT LAYING IN BED SLEEPING. AROUSEABLE TO VOICE. BED IN LOWEST POSITION.
--- NOTE | 2019-11-22 19:10 | NUR ---
COVID SWAB DONE AND SENT TO LAB
--- NOTE | 2019-11-22 19:22 | NUR ---
Pt report RECEIVED FROM KISHA GENTILE. Transfer of care at this time.
--- NOTE | 2019-11-22 19:32 | NUR ---
Giovani villanueva in ED - 11/22/19 at 2105 by [email or web address] ATTEMPTED TO CALL PT'S PER PT'S REQUEST. [phone] JAN, NO ANSWER, LEFT MESSAGE FORM HIM TO CALL BACK.
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
--- NOTE | 2019-11-22 20:44 | NUR ---
PT'S DAUGHTER SHELLY ARMSTRONG CALLED, SHE REQUESTED UPDATE. GIVEN INFORMATION, AND STATED SHE WOULD CALL BACK IN THE AM. SHE STATED SHE LIVES ON THE [facility]. PHONE# [phone]
--- NOTE | 2019-11-22 21:25 | NUR ---
PT LAYING IN BED QUIETLY, VSS, O2: 99%, SIDE RAIL X2 , BED IN LOW POSITION, WILL CONTINUE TO MONITOR. Addendum: 11/22/19 at 2306 by RateElert R/R EQUAL, AND UNLABORED.
[2019-11-22] MEDS ORDERED: ONDANSETRON 4 MG/2 ML VIAL IM/IVP PRN (21:30)
[2019-11-22] MEDS ORDERED: BENZONATATE 100 MG CAPLF PO PRN (21:30)
[2019-11-22] MEDS ORDERED: CALCIUM CARBONATE 500 MG TAB.CHEW PO PRN (21:30)
[2019-11-22] MEDS ORDERED: ZOLPIDEM 5 MG TAB PO PRN (21:30)
[2019-11-22] MEDS ORDERED: CLONIDINE HYDROCHLORIDE 0.1 MG TAB PO PRN (21:30)
[2019-11-22] MEDS ORDERED: SIMETHICONE PO SCH (21:30)
[2019-11-22] MEDS ORDERED: ACETAMINOPHEN 325 MG TAB PO PRN (21:30)
[2019-11-22] MEDS ORDERED: CALCIUM CARBONATE PO SCH (21:30)
[2019-11-22] MEDS ORDERED: POTASSIUM CHLORIDE 10 MEQ TABER PO PRN (21:30)
[2019-11-22] MEDS ORDERED: AZITHROMYCIN 250 MG TAB PO ONE (22:20)
[2019-11-22] MEDS ORDERED: DEXTROSE 50% 50 ML SYR IVP PRN (22:25)
[2019-11-22] MEDS: NACL 0.9% 1,000 ML IV SCH (22:30)
--- NOTE | 2019-11-22 22:45 | NUR ---
PERICARE COMPLETED. PT PLACED ON BEDPAN TO OBTAIN URINE SAMPLE.
[2019-11-22 23:19] LABS: PROTHROMBIN TIME 12.5 secs (10.8-13.4)
[2019-11-22 23:22] LABS: CHOL/HDL RATIO 3.4 (1-4.5); MAGNESIUM 1.1 mg/dL (1.8-2.4); THYROID STIMULATING HORMONE 3.42 uIU/mL (0.34-3.74)
[2019-11-22] MEDS ORDERED: AZITHROMYCIN 250 MG TAB ONE (23:23)
[2019-11-22] MEDS ORDERED: cefTRIAXone 1,000 MG VIAL ONE (23:23)
--- NOTE | 2019-11-22 23:36 | NUR ---
PT TAKEN OFF BED WHITE, URINE SPECIMEN COULDN'T BE USED DUE TO BEING CONTAMINATED WITH FECAL MATTER. PT AGREED TO A STRAIGHT CATHETER. PT CATHED, AND SPECIMEN COLLECTED AND SENT TO LAB
[2019-11-23 00:10] LABS: APPEARANCE,URINE CLEAR (CLEAR)
[2019-11-23 00:11] LABS: BILIRUBIN,URINE NEGATIVE (NEGATIVE); BLOOD, URINE NEGATIVE (NEGATIVE); COLOR,URINE YELLOW (YELLOW); LEUKOCYTE ESTERASE ,URINE NEGATIVE (NEGATIVE); NITRITE, URINE NEGATIVE (NEGATIVE); UGLUCOSE NEGATIVE (NEGATIVE)
--- NOTE | 2019-11-23 00:41 | NUR ---
PT REPOSITIONED IN BED FOR COMFORT. RESTING QUIETLY IN BED, VSS, O2: 99%. R/R EQUAL, AND UNLABORED. PT IS ASKING FOR A MILKY WAY CANDY BAR FROM THE VENDING MACHINE. BED IN LOW POSITION, SIDE RAIL X2, WILL CONTINUE TO MONITOR.
--- NOTE | 2019-11-23 02:03 | NUR ---
PT REPOSITIONED IN BED FOR COMFORT. RESTING QUIETLY IN BED, VSS, O2: 96%. R/R EQUAL, AND UNLABORED. BED IN LOW POSITION, SIDE RAIL X2, WILL CONTINUE TO MONITOR
[2019-11-23] MEDS: LORazepam 2 MG/ML VIAL IM/IVP PRN (03:36)
--- NOTE | 2019-11-23 03:36 | NUR ---
pt requested med to help her relax/sleep, medicated with ativan per order.
--- NOTE | 2019-11-23 04:07 | NUR ---
Note rich in ED - 11/23/19 at 0414 by [email or web address] PT UP AND AMBULATED TO RESTROOM WITH STEADY GAIT. PT REQUESTED ANOTHER SANDWICH AND JUICES. Q 15 MIN CHECKS CONTINUE.
--- NOTE | 2019-11-23 04:53 | NUR ---
PT APPEARS TO BE SLEEPING IN BED. VSS, O2: 98%. R/R EQUAL, AND UNLABORED. BED IN LOW POSITION, SIDE RAIL X2, WILL CONTINUE TO MONITOR
--- NOTE | 2019-11-23 06:38 | NUR ---
PERICARE PROVIDED FOR PT, LINEN AND GOWN CHANGE. PT SLEEPING. R/R EQUAL, AND UNLABORED. VSS. SPO2: 99% SIDE RAIL X2, BED IN LOW POSITION, WILL CONTINUE TO MONITOR.
[2019-11-23 07:14] LABS: BASOPHILS % (AUTO) 0.3 % (0.0-2.0); EOSINOPHILS # (AUTO) 0.1 K/uL (0-0.4); EOSINOPHILS % (AUTO) 1.3 % (0.0-4.0); HEMATOCRIT 33.7 % (36-48); HEMOGLOBIN 10.2 g/dL (12.0-16.0); LYMPHOCYTES # (AUTO) 0.7 K/uL (2.5-16.5); MEAN CORPUSCULAR HEMOGLOBIN 25 pg (27-31); MEAN CORPUSCULAR HGB CONC 30 g/dL (33-37); MEAN CORPUSCULAR VOLUME 82.1 fL (80-94); MONOCYTES # (AUTO) 0.5 K/uL (0.8-1.0); MONOCYTES % (AUTO) 6.7 % (1.7-9.3); NEUTROPHILS # (AUTO) 6.5 K/uL (1.8-7.7); NEUTROPHILS % (AUTO) 82.7 % (42.2-75.2); PLATELET COUNT (AUTO) 227 K/uL (140-450); RED BLOOD CELL COUNT(AUTO) 4.11 MIL/uL (4.20-5.40); RED CELL DISTRIBUTION WIDTH 20.7 % (11.6-13.7); WHITE BLOOD COUNT (AUTO) 7.9 K/uL (4.8-10.8)
--- NOTE | 2019-11-23 07:16 | NUR ---
received report from merrick carlin.
[2019-11-23] MEDS: BLOOD GLUCOSE MONITORING 1 DEV DEV FS SCH ×4 (07:40→21:00)
[2019-11-23] MEDS: PANTOPRAZOLE 40 MG TABEC PO SCH (07:40)
[2019-11-23] MEDS: glipiZIDE 10 MG TAB PO SCH ×2 (07:40→16:48)
[2019-11-23 07:41] LABS: ANION GAP 13.5 (8-16); CARBON DIOXIDE 30.7 mmol/L (21-32); CHLORIDE 105 mmol/L (98-107); CREATININE 1.2 mg/dL (0.6-1.3); GLUCOSE 223 mg/dL (74-106); POTASSIUM 4.2 mmol/L (3.5-5.1); SODIUM SERUM 145 mmol/L (136-145); UREA NITROGEN, BLOOD 22 mg/dL (7-18)
[2019-11-23] MEDS ORDERED: FUROSEMIDE 40 MG/4 ML VIAL IVP ONE (07:42)
[2019-11-23] MEDS ORDERED: LACTULOSE 20 GM/30 ML UDC ONE (07:43)
[2019-11-23] MEDS ORDERED: VITAMIN D 400 IU TAB ONE (07:44)
[2019-11-23] MEDS ORDERED: ASCORBIC ACID 500 MG TAB ONE (07:46)
[2019-11-23] MEDS ORDERED: ZINC SULF 220 MG CAP ONE (07:46)
[2019-11-23] MEDS ORDERED: AZITHROMYCIN 250 MG TAB ONE (07:47)
--- NOTE | 2019-11-23 07:52 | NUR ---
spoke to pharmacy waiting for meds to be sent over , no stocks in [employer]
--- NOTE | 2019-11-23 08:00 | NUR ---
pt daughter called spoke to merrick jacobs regarding pt condition update , pt informed and aware.
[2019-11-23 08:08] LABS: MAGNESIUM 1.1 mg/dL (1.8-2.4)
[2019-11-23] MEDS: FERROUS SULFATE 325 MG TABEC PO SCH ×3 (08:20→17:07)
[2019-11-23] MEDS: metFORMIN 500 MG TAB PO SCH ×2 (08:35→17:08)
--- NOTE | 2019-11-23 08:37 | NUR ---
pt comfortable in bed , meds given with stable vs.
[2019-11-23] MEDS ORDERED: SIMETHICONE 80 MG TAB.CHEW PO PRN (09:00)
[2019-11-23] MEDS ORDERED: TIMOLOL OP SCH (09:00)
[2019-11-23] MEDS ORDERED: LOVENOX 1MG/KG Q12H SUBQ SCH (09:00)
[2019-11-23] MEDS ORDERED: BRIMONIDINE TARTRATE OP SCH (09:00)
[2019-11-23] MEDS: DORZOLAMIDE 2% OP 10 ML BTL OP SCH ×2 (09:08→21:00)
[2019-11-23] MEDS: FUROSEMIDE 40 MG/4 ML VIAL IVP SCH ×2 (09:09→17:06)
[2019-11-23] MEDS: LACTULOSE 20 GM/30 ML UDC PO SCH (09:10)
[2019-11-23] MEDS: SUCRALFATE 1 GM TAB PO SCH (09:10)
[2019-11-23] MEDS: SPIRONOLACTONE 25 MG TAB PO SCH (09:10)
[2019-11-23] MEDS: VITAMIN D 400 IU TAB PO SCH (09:11)
[2019-11-23] MEDS: ASCORBIC ACID 500 MG TAB PO SCH (09:12)
[2019-11-23] MEDS: AZITHROMYCIN 250 MG TAB PO SCH (09:13)
[2019-11-23] MEDS: ZINC SULF 220 MG CAP PO SCH ×2 (09:13→23:10)
[2019-11-23] MEDS ORDERED: RIVAROXABAN 10 MG TAB PO SCH (10:29)
--- NOTE | 2019-11-23 10:45 | NUR ---
CALLED [facility] SPOKE TO TRINIDAD WITH REGARDS TO PATIENT EYE DROPS THEY WONT BRING OVER PATIENT MEDS KISHA FLEMING INFORMED AND TEXTED DR ARVIZU.
--- NOTE | 2019-11-23 10:47 | NUR ---
CALLED PHARMACY TO BRING THE SCHEDULED XARELTO
--- NOTE | 2019-11-23 11:03 | NUR ---
SPOKE TO PHARMACY MARCOS THAT INFORMED AND AWARE .FACILITY HAS THE PT EYE DROPS AND WONT BRING MEDS OVER .
--- NOTE | 2019-11-23 11:09 | NUR ---
SPOKE TO [facility] WITH REGARDS TO PT MEDS XARELTO THEY WILL BRING IT OVER.
--- NOTE | 2019-11-23 12:01 | NUR ---
SPOKE TO PHARMACY PRINCESS , THEY WILL OVER SCHEDULED MEDS OF PT.
--- NOTE | 2019-11-23 12:36 | NUR ---
TRIED TO SPON FEED PT WITH LUNCH ABLE TO TOLERATE 2 SPON OF CHICKEN FEED AND DRINK WATER PLUS MEDS.
--- NOTE | 2019-11-23 14:42 | NUR ---
pt comfortable in bed sleeping , unlabored breathing , side rails up x2 and lock.
--- NOTE | 2019-11-23 15:55 | NUR ---
speech therapist at bedside evalauting pt.
--- NOTE | 2019-11-23 16:27 | NUR ---
ST CLARIFICATION NOTE Pt DEMONSTRATED MODERATE OROPHAYRNGEAL DYSPHAGIA IMPACTED BY LETHARGY. SLOWED AP TRANSFERS AND NON-DYNAMIC LARYNGEAL ELEVATION & EXCURSION NOTED. WITH TRIALS. Pt COUGHED ON ICE CHIPS 3/5 AND THIN TSP 2/2. Pt WAS ABLE TO TOLERATE PUREE FOOD AND HONEY THICK LIQUIDS BY TSP W/O DIFFICULTY OR OVERT S/S OF ASPIRATION OR PENETRATION NOTED. Pt DOES HAVE ADEQUATE DENTITION FOR MASTICATION. HOWEVER, TRIALS OF MSC WERE WITHHELD D/T LEVEL OF LETHARGY LIKELY IMPACTING BOLUS MANIPULATION AND INCREASING RISK OF ASPIRATION. RECOMMEND: 1. PUREE FOOD AND HONEY THICK LIQUIDS BY TSP ONLY. 2. ASPIRATION PRECAUTIONS, ORAL CARE, AND FEEDER. 3. HOLD FEEDING IF Pt IS TOO LETHARGIC, UNABLE TO SUSTAIN AROUSAL. 4. ST FOR SWALLOW TX ORDERED FOR ONGOING DIET ANALYSIS, MODIFICATION, SAFE SWALLOW STRATEGIES, AND Pt/CG EDUCATION. JOHN ORTIZ MS, CCC-PHARMACY TECHNICIAN PROGRAM DIRECTOR
--- NOTE | 2019-11-23 16:28 | NUR ---
xray at bedside.
--- NOTE | 2019-11-23 19:16 | NUR ---
REPORT GIVEN TO KISHA KAPLAN , PT COMFORTABLE IN BED SIDE RAILS UP X1 AND LOCK.
[2019-11-23 20:15] VITALS: BP 140/67
--- NOTE | 2019-11-23 20:20 | NUR ---
RECEIVED PT FROM ER VIA MELISSA PT ISD AAOX1 FOLLOW SIMPLE COMMANDS, ON TELEMETRY SR, ON 05 23 LTS VIA NC , EDEMA ON BLE, HL ON RT HAND GAUGE #22 PATENT PT LINEN CHANGED SKIN INTACT, MRSA NARES SWAB TAKEN AND SENT TO LAB, REPOSITIONED , CALL LIGHT WITHIN REACH
--- NOTE | 2019-11-23 20:32 | NUR ---
Patient will be admitted to care of DR ARVIZU. Admited to TELE. Will go to room 116. Belongings list completed. Report to YAQUELIN BEARD.
[2019-11-23] MEDS ORDERED: LATANOPROST OP SCH (21:00)
[2019-11-23] MEDS ORDERED: [UNRECOGNIZED DRUG - OTHER] OP SCH (21:00)
[2019-11-23] MEDS ORDERED: NETARSUDIL MESYLAT OP SCH (21:00)
[2019-11-23] MEDS: LATANOPROST 0.005% OP 2.5 ML BTL OP SCH (21:00)
--- NOTE | 2019-11-23 22:30 | NUR ---
BLOOD SUGAR TESST 138 NOT COVERAGE PT IV ON RT HAND INFUSING QWELL ON TEL SR REPOSITIONED Q2H
[2019-11-23] MEDS: INSULIN LANTUS 100 UNITS/ML 10 ML VIAL SUBQ SCH (22:35)
[2019-11-23] MEDS: NACL 0.9% 1,000 ML IV SCH (22:50)
[2019-11-23] MEDS ORDERED: cefTRIAXone 1,000 MG VIAL ONE (22:53)
[2019-11-23] MEDS: MAG SULF 2000 MG/WATER PREMIX 50 ML IV PRN (23:03)
[2019-11-23] MEDS ORDERED: CRUSHER, PILL MC ONE (23:07)
[2019-11-23] MEDS: ATORVASTATIN 20 MG TAB PO SCH (23:10)
[2019-11-23] MEDS: METOPROLOL 25 MG TAB PO SCH (23:13)
[2019-11-24] VITALS: BP 138/73
--- NOTE | 2019-11-24 01:00 | NUR ---
PT SLEEPING WELL NOT DISTRESS NOTE D ON [address] SAT 100% REMAIN STABLE AT THIS TIME
[2019-11-24 04:00] VITALS: BP 134/97
--- NOTE | 2019-11-24 04:00 | NUR ---
SPONGE BATH GIVEN LINEN CHANGED REPOSITIONED ON TELE SSSR ON 05 23 LTS VIA NC REMAIN STABLE
[2019-11-24] MEDS: BLOOD GLUCOSE MONITORING 1 DEV DEV FS SCH ×4 (06:10→21:51)
[2019-11-24] MEDS: glipiZIDE 10 MG TAB PO SCH ×2 (06:11→16:30)
[2019-11-24] MEDS: PANTOPRAZOLE 40 MG TABEC PO SCH (06:12)
--- NOTE | 2019-11-24 06:15 | NUR ---
BLOOD SUGAR TEST 101 NOT COVERAGE, PT ON TELE SR , WILL BE ENDORSED TO DAY SHIFT NURSE FOR CONTINUE OF CARE
--- NOTE | 2019-11-24 07:21 | NUR ---
RECEIVED REPORT FROM TAKER OFF HEMP FIBER RN FOR CONTINUITY OF CARE. PT IS AAOX2, COOPERATIVE AND ABLE TO MAKE NEEDS KNOWN. PT IS ON 2L O2 VIA NC SATING 99%. PT SKIN INTACT. PT HAS RIGHT THUMB 22G INFUSING NS @ 10MLHR. DISCUSSED POC WITH PT AND PT VERBALIZED UNDERSTANDING BUT WILL NEED REINFORCEMENT THROUGHOUT THE SHIFT. ALL SAFETY MEASURES IN PLACE. WILL ROUND FREQUENTLY ON PT THROUGHOUT THE SHIFT.
[2019-11-24 07:52] LABS: BASOPHILS % (AUTO) 0.3 % (0.0-2.0); EOSINOPHILS % (AUTO) 0.1 % (0.0-4.0); HEMATOCRIT 33.6 % (36-48); HEMOGLOBIN 10.3 g/dL (12.0-16.0); LYMPHOCYTES # (AUTO) 1.2 K/uL (2.5-16.5); LYMPHOCYTES % (AUTO) 18.3 % (20.5-51.1); MEAN CORPUSCULAR HEMOGLOBIN 25 pg (27-31); MEAN CORPUSCULAR HGB CONC 31 g/dL (33-37); MEAN CORPUSCULAR VOLUME 81.3 fL (80-94); MONOCYTES # (AUTO) 0.7 K/uL (0.8-1.0); NEUTROPHILS # (AUTO) 4.5 K/uL (1.8-7.7); NEUTROPHILS % (AUTO) 70.3 % (42.2-75.2); PLATELET COUNT (AUTO) 222 K/uL (140-450); RED BLOOD CELL COUNT(AUTO) 4.13 MIL/uL (4.20-5.40); RED CELL DISTRIBUTION WIDTH 20.5 % (11.6-13.7); WHITE BLOOD COUNT (AUTO) 6.5 K/uL (4.8-10.8)
[2019-11-24 07:59] LABS: ANION GAP 10.4 (8-16); CARBON DIOXIDE 32.8 mmol/L (21-32); CHLORIDE 105 mmol/L (98-107); CREATININE 1.1 mg/dL (0.6-1.3); GLUCOSE 115 mg/dL (74-106); POTASSIUM 4.2 mmol/L (3.5-5.1); SODIUM SERUM 144 mmol/L (136-145); UREA NITROGEN, BLOOD 23 mg/dL (7-18)
[2019-11-24 08:00] VITALS: BP 127/69
[2019-11-24] MEDS: FERROUS SULFATE 325 MG TABEC PO SCH ×3 (08:00→17:50)
[2019-11-24] MEDS: metFORMIN 500 MG TAB PO SCH ×2 (08:00→17:50)
[2019-11-24 08:03] LABS: MAGNESIUM 1.5 mg/dL (1.8-2.4); PHOSPHORUS 3.3 mg/dL (2.5-4.9)
[2019-11-24] MEDS: ASCORBIC ACID 500 MG TAB PO SCH (09:00)
[2019-11-24] MEDS: LACTULOSE 20 GM/30 ML UDC PO SCH (09:00)
[2019-11-24] MEDS: AZITHROMYCIN 250 MG TAB PO SCH (09:00)
[2019-11-24] MEDS: ZINC SULF 220 MG CAP PO SCH ×2 (09:00→21:22)
[2019-11-24] MEDS: DORZOLAMIDE 2% OP 10 ML BTL OP SCH ×2 (09:00→21:21)
[2019-11-24] MEDS: RIVAROXABAN 10 MG TAB PO SCH (09:00)
[2019-11-24] MEDS: VITAMIN D 400 IU TAB PO SCH (09:00)
[2019-11-24] MEDS: FUROSEMIDE 40 MG/4 ML VIAL IVP SCH (09:00)
[2019-11-24] MEDS: SPIRONOLACTONE 25 MG TAB PO SCH (09:00)
[2019-11-24] MEDS: SUCRALFATE 1 GM TAB PO SCH (09:00)
--- NOTE | 2019-11-24 09:14 | NUR ---
PATIENT HAS BEEN SCREENED AND CATEGORIZED HIGH NUTRITION RISK. PATIENT WILL BE SEEN WITHIN 1-2 DAYS OF ADMISSION. 11/24/[address]
--- NOTE | 2019-11-24 09:22 | NUR ---
DC [age] YRS OLD FEMALE PATIENT WAS ADMITTED FROM [facility] WITH A DX OF CHF. PT HAS A HX OF A-FIB, CHF, [place],DM, CABG AND GERD. CXR SHOWED PULMONARY INTERSTITIAL EDEMA WITH A MODERATE RIGHT PLEURAL EFFUSION. ADMINISTERED IV LASIX ,CONTINUE HOME MEDICATION. COVID TEST, NEGATIVE ON 11/21 AND PENDING ON 11/23 . CONSULTED WITH GENERAL PARTNER. DC PLAN TO GO BACK TO [facility] WHEN STABLE CM TO FOLLOW. Addendum: 11/25/19 at 1409 by Cathy Lott CM DC PLANNINND COVID TEST PENDING. CT CHEST LARGE RIGHT PLEURAL EFFUSION SMALL AMOUNT OF ASCITES. SEEN BY GENERAL PARTNER AND DR CAMI ENAMORADO CONTINUE CURRENT TREATMENT, IV ABX ROCEPHIN. CM TO FOLLOW Addendum: 11/26/19 at 1126 by Trish Diego CM SECOND COVID TEST CAME BACK NEGATIVE. POSSIBLE D/C BACK TO [facility] THIS WEEKEND [phone]. FAXED PATIENTS CLINICALS TO [phone] WILL FOLLOW UP. Addendum: 11/26/19 at 1245 by Trish Diego CM SPOKE WITH DARWIN [phone] AT [facility]. PATIENT CAN RETURN TO ROOM 18 A. SHE STATED THAT WE CAN USE [employer] AND BILL [facility]. Addendum: 11/26/19 at 1325 by Trish Diego CM IF PATIENT DISCHARGES OVER THE WEEKEND USE [employer] FOR TRANSPORTATION [phone]. PER DARWIN AT [facility] THEY WILL ACCEPT THE BILL. Addendum: 11/26/19 at 1516 by Cathy Lott CM DC PLANNING: RADIOLOGIST HELD THE THORACENTESIS BECAUSE OF PT CURRENTLY TAKING XARELTO AND NEEDS TO BE OFF AT LEAST 2 DAYS. CM TO FOLLOW Addendum: 11/30/19 at 1312 by Trish Diego CM CONTACTED [facility] TO NOTIFY THEM THAT PATIENT WILL BE DISCHARGED TODAY. CONTACTED KISHA GAMEZ SHE ASKED THAT I SET UP TRANSPORTATION FOR AFTER 5:00 PM. CONTACTED [facility] TO SET UP TRANSPORTATION AND SPOKE TO GALINA [phone]. TRANSPORTATION IS SET FOR 5:00 PM-6:00 PM. CONTACTED PATIENTS DAUGHTER SHELLY ARMSTRONG [phone] AND LEFT A VOICE MAIL NOTIFYING HER OF DISCHARGE.
--- NOTE | 2019-11-24 09:27 | NUR ---
ADMINISTERED MORNING MEDS TO PT. PT TOLERATED WELL. ALL NEEDS MET. WILL CONTINUE TO ROUND FREQUENTLY ON PT.
[2019-11-24] MEDS: MAG SULF 2000 MG/WATER PREMIX 50 ML IV PRN (11:08)
--- NOTE | 2019-11-24 11:13 | NUR ---
HEALTH DIAGNOSTICS TEACHER NOTE: Patient's Orientation Unable To Assess Information Provided By SHELLY ARMSTRONG - DAUGHTER Comments SW WAS UNABLE TO MEET PATIENT AT BEDSIDE DUE TO MEDICAL CONDITION. PER SHELLY, PATIENT IS NOT ALERT/ORIENTED AT BASELINE/ Cylinder Block Hole Reliner, Realtionship and Phone Number SHELLY ARMSTRONG DAUGHTER [phone] Healthcare Power of Locomotive Inspector No Does Patient Have a POLST No Identifying Problems No Social Work Triggers Is A Social Work Consult Needed No Mandate Report Filed No Explanation Of Identifying Problems PATIENT IS A 74-YEAR-OLD FEMALE ADMITTED FOR CHF. PATIENT HAS PMHX OF AFIB, CHF, [place], GERD, AND DIABETES. [facility] - [phone] Pre-Admission Level Of Functioning Status Total Care Prior Resources/Services Used In Last 12 Months SNF [facility] Care Prior DME Home Oxygen Wheelchair Patient Had Caregiver No Home Support No Caregiver Issues Financial Issues No Known Financial Issue Factors/Needs SNF/NH Placement Explanation And Or Other Factors Affecting/Possible DC Needs PATIENT IS JAIL AND ON A BED HOLD. Pt/Rep Participated In Discharge Plan Yes Patient/Family Agress With Discharge Plan Yes Discharge Plan Comments TENTATIVE DISCHARGE PLAN IS FOR PATIENT TO RETURN TO [facility]. DC Plan Status Initiated
--- NOTE | 2019-11-24 11:28 | NUR ---
SWALLOW TREAMENT NOTE S: Pt MORE ALERT, RESPONSIVE, COOPERATIVE TODAY COMPARED TO 11/23/19. O: SWALLOW TX COMPLETED. A: Pt ABLE TO TOLERATE MSC/THIN LIQUIDS, STRAW OKAY. NO OVERT S/S OF ASPIRATION OR PENETRATION NOTED. AP TRANSFER AND SWALLOW RESPONSE WERE TIMELY WITH FULL LARYNGEAL ELEVATION AND EXCURSION. P: RECOMMEND TO CHANGE DIET TEXTURE TO [facility] SOFT CHOPPED AND THIN LIQUIDS, ASPIRATION PRECAUTIONS, ORAL CARE, AND FEEDER. ST TO CONTINUE SW THERAPY FOR ONGOING DIET ANALYSIS, SAFE SWALLOW STRATEGIES, AND Pt/CG EDUCATION. JOHN ORTIZ, MS, CCC-ACTING SECTION CHIEF
--- NOTE | 2019-11-24 11:42 | NUR ---
PT REFUSING INSULIN FOR 165 BS AT THIS TIME. PER PT SPEECH THERAPIST WENT IN TO DO SWALLOW EVAL AND GAVE PT SWEET JUICE AND APPLE SAUCE. PT STABLE AT THIS TIME.
[2019-11-24 12:00] VITALS: BP 112/67
--- NOTE | 2019-11-24 13:35 | NUR ---
PT ASLEEP. ALL NEEDS MET.
--- NOTE | 2019-11-24 13:50 | NUR ---
11/24/19 RD INITIAL ASSESSMENT COMPLETED PLEASE REFER TO NUTRITION ASSESSMENT UNDER CARE ACTIVITY FOR ESTIMATED NUTRITIONAL NEEDS. 1. RECOMMEND MECHANICAL SOFT CARDIAC AND CCHO 75 GM DIET TOLERATED 2. IF PO INTAKE <75% CONSIDER GLUCERNA BID 3. CONTINUE TO PROVIDE ASSISTANCE WITH MEALS 4. RD TO FOLLOW-UP 3-5 DAYS, MODERATE RISK YASMEEN ROSS RD
[2019-11-24 16:00] VITALS: BP 117/72
--- NOTE | 2019-11-24 17:51 | NUR ---
PT REFUSED INSULIN COVERAGE FOR 185 BS BECAUSE SHE WAS GIVEN GLIPIZIDE AND METFORMIN. PER PT THESE MEDS WILL DROP BS IF INSULIN IS ALSO GIVEN.
[2019-11-24] MEDS ORDERED: FUROSEMIDE 40 MG/4 ML VIAL IVP SCH (18:15)
--- NOTE | 2019-11-24 18:51 | NUR ---
WILL ENDORSE PT TO DIRECTOR ORANGE FOR CONTINUITY OF CARE. PT IN STABLE CONDITION AT THIS TIME.
[2019-11-24 20:00] VITALS: BP 128/79
--- NOTE | 2019-11-24 20:19 | NUR ---
RECEIVED PT FROM AM SHIFT. PT SEEN AND ASSESSED. PT ON 4L NASAL CANNULA WITH SPO2 OF 100%. O2 TITRATED TO 2L NC SPO2 96%. PT IS IN NO APPARENT RESPIRATORY DISTRESS AT THIS TIME. PRN TX NOT INDICATED AT THIS TIME. WILL CONTINUE TO MONITOR PT.
[2019-11-24] MEDS: LATANOPROST 0.005% OP 2.5 ML BTL OP SCH (21:21)
[2019-11-24] MEDS: ATORVASTATIN 20 MG TAB PO SCH (21:21)
[2019-11-24] MEDS: METOPROLOL 25 MG TAB PO SCH (21:22)
[2019-11-24] MEDS: INSULIN LANTUS 100 UNITS/ML 10 ML VIAL SUBQ SCH (21:52)
[2019-11-24] MEDS: NACL 0.9% 1,000 ML IV SCH (21:57)
[2019-11-24] MEDS: INSULIN LISPRO SLIDING SCALE 100 UNITS/ML VIAL SUBQ PRN (22:32)
[2019-11-25] VITALS: BP 122/82
[2019-11-25 03:52] VITALS: BP 128/82
[2019-11-25] MEDS: BLOOD GLUCOSE MONITORING 1 DEV DEV FS SCH ×4 (06:26→21:00)
[2019-11-25] MEDS: glipiZIDE 10 MG TAB PO SCH ×2 (06:45→16:30)
[2019-11-25] MEDS: PANTOPRAZOLE 40 MG TABEC PO SCH (06:45)
--- NOTE | 2019-11-25 07:30 | NUR ---
PT IS LYING IN BED AWAKE AND RESPONSIVE. IV IN PLACE. NO DISTRESS NOTED. BED IN LOW POSITION. CALL LIGHT IN REACH. WILL CONTINUE TO MONITOR.
[2019-11-25 07:54] LABS: BASOPHILS % (AUTO) 0.4 % (0.0-2.0); EOSINOPHILS % (AUTO) 0.1 % (0.0-4.0); HEMATOCRIT 34.2 % (36-48); HEMOGLOBIN 10.5 g/dL (12.0-16.0); LYMPHOCYTES # (AUTO) 1.2 K/uL (2.5-16.5); LYMPHOCYTES % (AUTO) 15.3 % (20.5-51.1); MEAN CORPUSCULAR HEMOGLOBIN 25 pg (27-31); MEAN CORPUSCULAR HGB CONC 31 g/dL (33-37); MEAN CORPUSCULAR VOLUME 81.9 fL (80-94); MONOCYTES # (AUTO) 0.8 K/uL (0.8-1.0); MONOCYTES % (AUTO) 9.8 % (1.7-9.3); NEUTROPHILS % (AUTO) 74.4 % (42.2-75.2); PLATELET COUNT (AUTO) 235 K/uL (140-450); RED BLOOD CELL COUNT(AUTO) 4.18 MIL/uL (4.20-5.40); RED CELL DISTRIBUTION WIDTH 20.5 % (11.6-13.7)
[2019-11-25 08:00] VITALS: BP 124/60
[2019-11-25] MEDS: LACTULOSE 20 GM/30 ML UDC PO SCH (08:11)
[2019-11-25] MEDS: FERROUS SULFATE 325 MG TABEC PO SCH ×3 (08:11→16:30)
[2019-11-25] MEDS: metFORMIN 500 MG TAB PO SCH ×2 (08:11→16:30)
[2019-11-25] MEDS: ZINC SULF 220 MG CAP PO SCH ×2 (08:12→21:48)
[2019-11-25] MEDS: FUROSEMIDE 40 MG/4 ML VIAL IVP SCH (08:12)
[2019-11-25] MEDS: AZITHROMYCIN 250 MG TAB PO SCH (08:12)
[2019-11-25] MEDS: SUCRALFATE 1 GM TAB PO SCH (08:12)
[2019-11-25] MEDS: VITAMIN D 400 IU TAB PO SCH (08:13)
[2019-11-25] MEDS: ASCORBIC ACID 500 MG TAB PO SCH (08:13)
[2019-11-25 08:18] LABS: ANION GAP 10.1 (8-16); CARBON DIOXIDE 34.6 mmol/L (21-32); CHLORIDE 101 mmol/L (98-107); CREATININE 1.2 mg/dL (0.6-1.3); GLUCOSE 172 mg/dL (74-106); POTASSIUM 4.7 mmol/L (3.5-5.1); SODIUM SERUM 141 mmol/L (136-145); UREA NITROGEN, BLOOD 27 mg/dL (7-18)
[2019-11-25 08:22] LABS: MAGNESIUM 1.6 mg/dL (1.8-2.4)
[2019-11-25] MEDS: RIVAROXABAN 10 MG TAB PO SCH (08:35)
[2019-11-25] MEDS: DORZOLAMIDE 2% OP 10 ML BTL OP SCH ×2 (08:35→21:00)
--- NOTE | 2019-11-25 09:00 | NUR ---
PT IS EATING BREAKFAST. PT IS RESPONSIVE TO NAME. MORNING MEDS GIVEN. VITALS NORMAL. O2 SATS AT 98%. IV IN PLACE AND FLUSHING. NO DISTRESS NOTED AT THIS TIME. BED IN LOW POSITION. CALL LIGHT IN REACH
[2019-11-25] MEDS: MAG SULF 2000 MG/WATER PREMIX 50 ML IV PRN (10:38)
[2019-11-25] MEDS: SPIRONOLACTONE 25 MG TAB PO SCH (10:54)
[2019-11-25 12:00] VITALS: BP 149/89
--- NOTE | 2019-11-25 12:00 | NUR ---
PT IS AWAKE AND RESPONSIVE AND EATING LUNCH. PT ON 2L NC O2 SATS AT 98%. NO DISTRESS NOTED. BED IN LOW POSITION. CALL LIGHT IN REACH.
[2019-11-25] MEDS: INSULIN LISPRO SLIDING SCALE 100 UNITS/ML VIAL SUBQ PRN ×3 (12:47→22:13)
--- NOTE | 2019-11-25 15:21 | NUR ---
PT IS LYING IN BED. NO DISTRESS. PT IS OTHERWISE AWAKE AND RESPONSIVE. WILL CONTINUE TO MONITOR. CALL LIGHT IN REACH.
[2019-11-25 16:00] VITALS: BP 106/71
--- NOTE | 2019-11-25 17:58 | NUR ---
PT IS AWAKE AND SITTING IN BED. NO DISTRESS NOTED. WILL CONTINUE TO MONITOR. CALL LIGHT IN REACH.
--- NOTE | 2019-11-25 19:25 | NUR ---
SHIFT REPORT GIVEN TO SEMICONDUCTOR TESTING GROUP LEADER NURSE. PT IS STABLE.
[2019-11-25 20:00] VITALS: BP 129/65
--- NOTE | 2019-11-25 20:00 | NUR ---
PT IN BED AOX3 V/S FOLLOWS: T 97.8 P 79 RR 20 B/P 129/65 02 92% ON ROOM AIR. ALL FALLS AND DROPLET PRECAUTIONS IN PLACE. PT HAS NO C/O OF PAIN OR DISTRESS NOTED. ALL REQUESTED ATTENDED REQUESTED.
[2019-11-25] MEDS ORDERED: MAGNESIUM OXIDE 400 MG TAB PO ONE (20:10)
[2019-11-25] MEDS: LATANOPROST 0.005% OP 2.5 ML BTL OP SCH (21:00)
[2019-11-25] MEDS: NACL 0.9% 1,000 ML IV SCH (21:30)
--- NOTE | 2019-11-25 21:45 | NUR ---
RADIOLOGY CALLED THORACENTESES ORDERED, CONSENT TO BE PRINTED, WILL SPEAK WITH MD CONCERNING ORDERING PT/PTT AND INR REQUESTED. PT GIVEN ORDERED LIPITOR , LOPRESSOR AND ZINC SULFATE WELL ORDERED MAG-OXIDE. EYES GTT ORDERED, NOT AVAILABLE , PT F/S IF 187, 2 UNITS OF HUMALOG COVERAGE GIVEN SQ WELL ORDERED LANTUS SQ.
[2019-11-25] MEDS: METOPROLOL 25 MG TAB PO SCH (21:47)
[2019-11-25] MEDS: ATORVASTATIN 20 MG TAB PO SCH (21:48)
[2019-11-25] MEDS: INSULIN LANTUS 100 UNITS/ML 10 ML VIAL SUBQ SCH (22:11)
[2019-11-25] MEDS ORDERED: MAGNESIUM OXIDE 400 MG TAB ONE (22:22)
--- NOTE | 2019-11-25 22:30 | NUR ---
PT SIGNED CONSENT FOR THORACENTESES SIGNED, QUESTIONS ANSWERED AND SIDE EFFECTS VS RISK DISCUSSED AT BEDSIDE. PT/PTT AND INR ORDERED FOR AM LABS FOR PROCEDURE. ALL REQUESTS ATTENDED BY STAFF. ALL DROPLET AND FALLS PRECAUTIONS IN PLACE.
[2019-11-26] VITALS: BP 124/62
--- NOTE | 2019-11-26 | NUR ---
PT IN BED AWAKE V/S FOLLOWS: T 97.3 P 83 R 20 B/P 124/62 02 94% ON ROOM AIR. ALL REQUESTS ATTENDED BY STAFF AND ALL ORDERED PRECAUTIONS IN PLACE.
[2019-11-26 04:00] VITALS: BP 124/70
--- NOTE | 2019-11-26 04:00 | NUR ---
PT IN BED AOX2 AWAKE V/S FOLLOWS: T 98.0 P 75 R 22 B/P124/70 02 95% ON ROOM AIR. NORMAL SALINE RUNNING ORDERED VIA 22 RIGHT THUMB IV SITE. ALL REQUESTED NEEDS ATTENDED BY STAFF AND CALL WEAVER IN REACH.
--- NOTE | 2019-11-26 06:00 | NUR ---
PT FINGERSTICK IS 117 NO HUMALOG COVERAGE NEEDED. PT GIVEN ORDERED GLUCOTROL AND PROTONIX. ALL ORDERED PRECAUTIONS IN PLACE LAB DRAWS AT BEDSIDE. PT GIVEN TYLENOL FOR MILD RIGHT HIP PAIN.
[2019-11-26] MEDS: PANTOPRAZOLE 40 MG TABEC PO SCH (06:12)
[2019-11-26] MEDS: glipiZIDE 10 MG TAB PO SCH ×2 (06:12→16:30)
[2019-11-26] MEDS: DOCUSATE SODIUM 100 MG GELCAP PO PRN ×2 (06:12→06:40)
[2019-11-26] MEDS: BLOOD GLUCOSE MONITORING 1 DEV DEV FS SCH ×4 (06:41→21:16)
--- NOTE | 2019-11-26 07:30 | NUR ---
RECEIVED REPORT FROM CUSTOM HOME INSTALLER RN FOR CONTINUITY OF CARE. PT IS AAOX2, COOPERATIVE AND ABLE TO MAKE NEEDS KNOWN. PT IS RA O2 SAT 95%. PT SKIN INTACT. PT HAS RIGHT THUMB 22G INFUSING NS @ 10MLHR. ALL SAFETY MEASURES IN PLACE. WILL CONTINUE TO MONITOR.
[2019-11-26 07:31] LABS: BASOPHILS # (AUTO) 0.1 K/uL (0.00-0.22); BASOPHILS % (AUTO) 0.8 % (0.0-2.0); EOSINOPHILS % (AUTO) 0.1 % (0.0-4.0); HEMATOCRIT 34.5 % (36-48); HEMOGLOBIN 10.7 g/dL (12.0-16.0); LYMPHOCYTES # (AUTO) 1.5 K/uL (2.5-16.5); LYMPHOCYTES % (AUTO) 16.1 % (20.5-51.1); MEAN CORPUSCULAR HEMOGLOBIN 25 pg (27-31); MEAN CORPUSCULAR HGB CONC 31 g/dL (33-37); MEAN CORPUSCULAR VOLUME 81.7 fL (80-94); MONOCYTES # (AUTO) 0.9 K/uL (0.8-1.0); MONOCYTES % (AUTO) 9.4 % (1.7-9.3); NEUTROPHILS % (AUTO) 73.6 % (42.2-75.2); PLATELET COUNT (AUTO) 237 K/uL (140-450); RED BLOOD CELL COUNT(AUTO) 4.23 MIL/uL (4.20-5.40); RED CELL DISTRIBUTION WIDTH 20.8 % (11.6-13.7); WHITE BLOOD COUNT (AUTO) 9.5 K/uL (4.8-10.8)
[2019-11-26 07:44] LABS: PROTHROMBIN TIME 12.1 secs (10.8-13.4)
[2019-11-26 07:56] LABS: ALBUMIN 2.8 g/dL (3.4-5.0); ANION GAP 12.1 (8-16); ASPARTATE AMINOTRANSFERASE 15 U/L (15-37); CARBON DIOXIDE 28.5 mmol/L (21-32); CHLORIDE 104 mmol/L (98-107); CREATININE 1.2 mg/dL (0.6-1.3); GLUCOSE 116 mg/dL (74-106); LACTATE DEHYDROGENASE 239 U/L (81-234); MAGNESIUM 1.7 mg/dL (1.8-2.4); PHOSPHORUS 2.3 mg/dL (2.5-4.9); POTASSIUM 4.6 mmol/L (3.5-5.1); SODIUM SERUM 140 mmol/L (136-145); TOTAL BILIRUBIN 0.3 mg/dL (0.0-1.0); UREA NITROGEN, BLOOD 34 mg/dL (7-18)
[2019-11-26 08:00] VITALS: BP 138/68
[2019-11-26] MEDS: DORZOLAMIDE 2% OP 10 ML BTL OP SCH ×2 (09:00→21:16)
[2019-11-26] MEDS: RIVAROXABAN 10 MG TAB PO SCH (09:00)
[2019-11-26] MEDS: ASCORBIC ACID 500 MG TAB PO SCH (09:04)
[2019-11-26] MEDS: VITAMIN D 400 IU TAB PO SCH (09:04)
[2019-11-26] MEDS: metFORMIN 500 MG TAB PO SCH ×2 (09:04→17:00)
[2019-11-26] MEDS: AZITHROMYCIN 250 MG TAB PO SCH (09:04)
[2019-11-26] MEDS: FERROUS SULFATE 325 MG TABEC PO SCH ×3 (09:06→17:00)
[2019-11-26] MEDS: SUCRALFATE 1 GM TAB PO SCH (09:06)
[2019-11-26] MEDS: ZINC SULF 220 MG CAP PO SCH ×2 (09:06→21:16)
[2019-11-26] MEDS: SPIRONOLACTONE 25 MG TAB PO SCH (09:06)
[2019-11-26] MEDS: FUROSEMIDE 40 MG/4 ML VIAL IVP SCH (09:07)
[2019-11-26] MEDS: LACTULOSE 20 GM/30 ML UDC PO SCH (09:07)
--- NOTE | 2019-11-26 09:10 | NUR ---
SCHEDULED MORNING MEDS GIVEN. EDUCATION PROVIDED. PATIENT TOLERATED WELL. XARELTO HOLD FOR THORACENTESIS. CHANGED TO RIGHT LATERAL POSITION. WILL CONTINUE TO MONITOR.
--- NOTE | 2019-11-26 11:38 | NUR ---
ST DISCHARGE NOTE Pt DEMONSTRATING TOLERANCE OF MS FOOD AND THIN LIQUID DIET W/O DIFFICULTY OR OVERT S/S OF ASPIRATION OR PENETRATION. CONTINUED SKILLED ST FOR SWALLOW TX NOT INDICATED AT THIS TIME. D/C SKILLED ST. JOHN ORTIZ MS, CCC-UNDERCUTTER OPERATOR
[2019-11-26 12:00] VITALS: BP 142/71
[2019-11-26] MEDS: LORazepam 2 MG/ML VIAL IM/IVP PRN (12:23)
--- NOTE | 2019-11-26 12:23 | NUR ---
PATIENT IS ANXIOUS, AND PATIENT ASKS FOR BREATHING TREATMENT. ADMINISTERED 0.5ML/ 1MG OF ATIVAN. PATIENT'S O2 SAT RANGE FROM 90%-92% IN RA. CALLED RT, WILL COME TO CHECK WITH THE PATIENT.
[2019-11-26] MEDS: ALBUTEROL HFA MDI 90 MCG/ACTUATION 8 GM INH PRN ×2 (13:09→13:38)
--- NOTE | 2019-11-26 13:39 | NUR ---
13 15 PT REF MDI AT THIS TIME NO RX GIVEN
--- NOTE | 2019-11-26 14:00 | NUR ---
PATIENT IS SLEEPING, OXYGEN LEVEL 93% WITH 2 L NC. WILL CONTINUE TO MONITOR.
--- NOTE | 2019-11-26 15:15 | NUR ---
PATIENT RESTING IN BED. SLEEPING, NO ACUTE DISTRESS NOTED.
[2019-11-26 16:00] VITALS: BP 151/80
[2019-11-26] MEDS: INSULIN LISPRO SLIDING SCALE 100 UNITS/ML VIAL SUBQ PRN (18:15)
--- NOTE | 2019-11-26 19:35 | NUR ---
ENDORSED PATIENT TO BOAT WORKER NURSE FOR CONTINUITY OF CARE.
--- NOTE | 2019-11-26 19:35 | NUR ---
RECEIVED PT AAOX4 , NID - O2 SAT WNL , W/ O2 AT 2LPM/NC , FALL RISK , BEDBOUND , LOW HIRO SCALE . IV SITE INTACT AND PATENT. PENDING THORACENTESIS . PER AM NURSE HOLD BLOOD THINNER - TILL FURTHER ORDER . SAFETY MEASURES IN PLACE . PLAN OF CARE DISCUSSED AND VERBALIZE UNDERSTANDING . ON TELE MONITOR - SR , FLACC O . WILL CONT. TO MONITOR .
[2019-11-26 20:00] VITALS: BP 140/86
[2019-11-26] MEDS: LATANOPROST 0.005% OP 2.5 ML BTL OP SCH (21:00)
[2019-11-26] MEDS: ATORVASTATIN 20 MG TAB PO SCH (21:16)
[2019-11-26] MEDS: METOPROLOL 25 MG TAB PO SCH (21:16)
[2019-11-26] MEDS: INSULIN LANTUS 100 UNITS/ML 10 ML VIAL SUBQ SCH (21:17)
[2019-11-26] MEDS: NACL 0.9% 1,000 ML IV SCH (21:30)
[2019-11-27] VITALS: BP 135/66
--- NOTE | 2019-11-27 | NUR ---
MADE ROUNDS , NO S/SX OF ACUTE DISTRESS NOTED . O2 SAT WNL .
--- NOTE | 2019-11-27 02:00 | NUR ---
SLEEPING - O2 SAT WNL . CALL LIGHT WITHIN REACH .
[2019-11-27 04:00] VITALS: BP 122/65
--- NOTE | 2019-11-27 04:00 | NUR ---
MADE ROUNDS , NO S/SX OF ACUTE DISTRESS NOTED . O2 SAT WNL .
--- NOTE | 2019-11-27 06:00 | NUR ---
MADE ROUNDS , NO S/SX OF ACUTE DISTRESS NOTED - O2 SAT WNL . CALL LIGHT WITHIN REACH . Addendum: 11/27/19 at 0753 by Nely Castro RN HGT 65 - DUE GLUCOTROL NOT GIVEN - COLD CLAMMY SKIN - PT OFFER TO EAT SNACK - BUT REFUSED .
[2019-11-27] MEDS: BLOOD GLUCOSE MONITORING 1 DEV DEV FS SCH ×4 (06:12→22:00)
[2019-11-27] MEDS: PANTOPRAZOLE 40 MG TABEC PO SCH (06:47)
[2019-11-27] MEDS: glipiZIDE 10 MG TAB PO SCH ×2 (06:47→16:33)
--- NOTE | 2019-11-27 07:20 | NUR ---
RECEIVED PATIENT FROM FIRST AID OFFICER NURSE FOR CONTINUITY OF CARE. AAOX4, PATIENT IS ASLEEP AND IN BED, EASILY AROUSABLE. RESPIRATIONS EVEN AND UNLABORED ON 2L NC WITH SAO2 AT 95%. IV SITE INTACT AND PATENT, INFUSINING NS AT TKO. PENDING THORACENTESIS . PER PM NURSE HOLD BLOOD THINNER - TILL FURTHER ORDER. SAFETY MEASURES IN PLACE. PLAN OF CARE DISCUSSED AND VERBALIZE UNDERSTANDING. CALL LIGHT WITHIN REACH. WILL CONTINUE TO MONITOR.
--- NOTE | 2019-11-27 07:20 | NUR ---
ENDORSED TO AM SHIFT - PT - STABLE .
[2019-11-27 07:49] LABS: BASOPHILS % (AUTO) 0.4 % (0.0-2.0); HEMATOCRIT 34.3 % (36-48); HEMOGLOBIN 10.6 g/dL (12.0-16.0); LYMPHOCYTES # (AUTO) 1.6 K/uL (2.5-16.5); MEAN CORPUSCULAR HEMOGLOBIN 25 pg (27-31); MEAN CORPUSCULAR HGB CONC 31 g/dL (33-37); MEAN CORPUSCULAR VOLUME 81.3 fL (80-94); MONOCYTES # (AUTO) 0.8 K/uL (0.8-1.0); MONOCYTES % (AUTO) 8.6 % (1.7-9.3); NEUTROPHILS # (AUTO) 6.9 K/uL (1.8-7.7); PLATELET COUNT (AUTO) 242 K/uL (140-450); RED BLOOD CELL COUNT(AUTO) 4.23 MIL/uL (4.20-5.40); WHITE BLOOD COUNT (AUTO) 9.3 K/uL (4.8-10.8)
[2019-11-27 08:00] VITALS: BP 127/57
[2019-11-27 08:02] LABS: MAGNESIUM 1.5 mg/dL (1.8-2.4); PHOSPHORUS 2.8 mg/dL (2.5-4.9)
[2019-11-27 08:11] LABS: CHLORIDE 103 mmol/L (98-107); CREATININE 1.2 mg/dL (0.6-1.3); GLUCOSE 116 mg/dL (74-106); SODIUM SERUM 143 mmol/L (136-145); UREA NITROGEN, BLOOD 39 mg/dL (7-18)
[2019-11-27] MEDS: LACTULOSE 20 GM/30 ML UDC PO SCH (08:40)
--- NOTE | 2019-11-27 08:40 | NUR ---
MORNING MEDICATIONS GIVEN. NO SIGNS OF DISTRESS NOTED. WILL CONTINUE TO MONITOR.
[2019-11-27] MEDS: metFORMIN 500 MG TAB PO SCH ×2 (08:41→16:33)
[2019-11-27] MEDS: SUCRALFATE 1 GM TAB PO SCH (08:41)
[2019-11-27] MEDS: FUROSEMIDE 40 MG/4 ML VIAL IVP SCH (08:41)
[2019-11-27] MEDS: AZITHROMYCIN 250 MG TAB PO SCH (08:42)
[2019-11-27] MEDS: ASCORBIC ACID 500 MG TAB PO SCH (08:42)
[2019-11-27] MEDS: ZINC SULF 220 MG CAP PO SCH ×2 (08:42→21:00)
[2019-11-27] MEDS: VITAMIN D 400 IU TAB PO SCH (08:42)
[2019-11-27] MEDS: SPIRONOLACTONE 25 MG TAB PO SCH (08:43)
[2019-11-27] MEDS: FERROUS SULFATE 325 MG TABEC PO SCH ×3 (08:43→16:33)
[2019-11-27] MEDS: DORZOLAMIDE 2% OP 10 ML BTL OP SCH ×2 (08:43→21:00)
--- NOTE | 2019-11-27 10:20 | NUR ---
IV SITE INFILTRATED. IS AWARE. NEW ORDERS FOR PICC LINE PLACEMENT GIVEN. WILL FOLLOW THROUGH
--- NOTE | 2019-11-27 11:10 | NUR ---
PATIENT SIGNED CONSENT FOR PICC LINE PLACEMENT. DR. MEDEROS EXPLAINED RISK AND BENEFIT OF PROCEDURE AND PATIENT VERBALIZES UNDERSTANDING. WILL CONTINUE TO MONITOR.
--- NOTE | 2019-11-27 11:44 | NUR ---
NO INSULIN COVERAGE GIVEN FOR BLOOD GLUCOSE OF 101. V/S TAKEN AND IS WNL. WILL CONTINUE TO MONITOR.
[2019-11-27 12:00] VITALS: BP 131/84
[2019-11-27] MEDS: ALBUTEROL HFA MDI 90 MCG/ACTUATION 8 GM INH PRN (13:35)
[2019-11-27 16:00] VITALS: BP 127/57
--- NOTE | 2019-11-27 16:00 | NUR ---
FOLLOWED UP ON PICC LINE INSERTION, LEFT MESSAGE WITH PICC LINE ABOUT ETA. WILL FOLLOW UP. WILL CONTINUE TO MONITOR.
--- NOTE | 2019-11-27 16:32 | NUR ---
2 UNITS OF INSULIN GIVEN FOR BLOOD GLUCOSE OF 174. NO SIGNS OF DISTRESS NOTED. V/S TAKEN AND IS WNL. WILL CONTINUE TO MONITOR.
[2019-11-27] MEDS: INSULIN LISPRO SLIDING SCALE 100 UNITS/ML VIAL SUBQ PRN ×2 (17:12→22:15)
--- NOTE | 2019-11-27 19:15 | NUR ---
ENDORSED TO POLLUTION CONTROL ENGINEER NURSE FOR CONTINUITY OF CARE.
[2019-11-27 20:00] VITALS: BP 145/71
--- NOTE | 2019-11-27 20:00 | NUR ---
RECEIVED REPORT FROM DAY RN REGARDING THE PATIENT FOR CONTINUITY OF CARE. PATIENT A/A/O3, DENIES ANY CHEST PAIN,SOB AND PALPITATIONS. SR ON LICENSED WEIGHER, HR-86.VSS, AFEBRILE,SATING 99% ON RA. PT S/P MIDLINE INSERTION ON THE RIGHT UPPER ARM DOUBLE LUMEN AND OK TO USE PER PICC LINE NURSE. IVF INFUSING ORDERED. FALL PRECAUTION IMPLEMENTED. INSTRUCTED THE PT NOT TO GET OOB WITHOUT ASSISTANCE. PT VERBALIZED UNDERSTANDING WITH THE POC. CALL LIGHT WITHIN REACH. WILL CONTINUE POC AND MONITORING.
[2019-11-27] MEDS: NACL 0.9% 1,000 ML IV SCH (21:30)
[2019-11-27] MEDS: METOPROLOL 25 MG TAB PO SCH (22:10)
[2019-11-27] MEDS: ATORVASTATIN 20 MG TAB PO SCH (22:10)
[2019-11-27] MEDS: LATANOPROST 0.005% OP 2.5 ML BTL OP SCH (22:12)
[2019-11-27] MEDS: INSULIN LANTUS 100 UNITS/ML 10 ML VIAL SUBQ SCH (22:16)
--- NOTE | 2019-11-27 23:51 | NUR ---
ADMINISTERED ALL THE SCHEDULED MEDICATIONS ORDERED EARLIER. BLOOD SUGAR WAS 152, 2 UNITS HUMALOG GIVEN PER SSI AND LANTUS 20 UNITS GIVEN ORDERED. SAFETY MEASURES IN PLACED.
[2019-11-28] VITALS: BP 124/67
--- NOTE | 2019-11-28 02:00 | NUR ---
PATIENT AWAKE AT THIS TIME. NOT IN ANY DISTRESS. REPOSITIONED THE PATIENT FOR COMFORT AND TO PREVENT SKIN BREAKDOWN .CALL LIGHT WITHIN REACH.
--- NOTE | 2019-11-28 03:00 | NUR ---
PATIENT C/O SOB. PLACED THE PATIENT ON 2L/NC. WILL CONTINUE TO MONITOR THE PATIENT.
[2019-11-28 04:00] VITALS: BP 129/58
--- NOTE | 2019-11-28 04:40 | NUR ---
VITAL SIGNS STABLE, AFEBRILE, SATING 98% ON 2L/NC. SR ON SUPERVISOR DOCK, HR-74. NO C/O OF PAIN AT THIS TIME. NO SIGN AND SYMPTOMS OF DISTRESS NOTED. CALL LIGHT WITHIN REACH. BED IN LOW POSITION.
--- NOTE | 2019-11-28 06:29 | NUR ---
PATIENT STABLE. NO ACUTE EVENT THROUGHOUT THE NIGHT. NO SIGN AND SYMPTOMS OF DISTRESS NOTED . NO COMPLAIN AT THIS TIME. ALL NEEDS ATTENDED. ALL NEEDS ATTENDED. CALL LIGHT WITHIN REACH. WILL ENDORSE THE PT TO THE ONCOMING RN FOR CONTINUITY OF CARE.
[2019-11-28] MEDS: INSULIN LISPRO SLIDING SCALE 100 UNITS/ML VIAL SUBQ PRN ×4 (06:50→21:58)
[2019-11-28] MEDS: BLOOD GLUCOSE MONITORING 1 DEV DEV FS SCH ×4 (06:55→21:52)
[2019-11-28] MEDS: glipiZIDE 10 MG TAB PO SCH ×2 (06:55→16:13)
[2019-11-28] MEDS: PANTOPRAZOLE 40 MG TABEC PO SCH (06:55)
--- NOTE | 2019-11-28 07:30 | NUR ---
RECEIVED REPORT FROM [employer] SUPERVISOR RN FOR CONTINUITY OF CARE. PATIENT IS AWAKE AND IN BED, AAOX3. DENIES ANY CHEST PAIN,SOB AND PALPITATIONS. SR ON HAMMERER. RESPIRATIONS EVEN AND UNLABORED, NO SIGNS OF DISTRESS. MIDLINE IN PLACE ON RIGHT UPPER ARM DOUBLE LUMEN WITH IVF INFUSING ORDERED. FALL PRECAUTION IMPLEMENTED. POC DISCUSSED, PATIENT VERBALIZES UNDERSTANDING. CALL LIGHT WITHIN REACH. WILL CONTINUE TO MONITOR.
--- NOTE | 2019-11-28 07:35 | NUR ---
Patient stable. Endorsed pt to day Rn Shamar for continuity of care. Bed in low position. Signing off.
[2019-11-28 07:45] LABS: BASOPHILS % (AUTO) 0.1 % (0.0-2.0); HEMOGLOBIN 10.2 g/dL (12.0-16.0); LYMPHOCYTES # (AUTO) 1.6 K/uL (2.5-16.5); LYMPHOCYTES % (AUTO) 18.6 % (20.5-51.1); MEAN CORPUSCULAR HEMOGLOBIN 25 pg (27-31); MEAN CORPUSCULAR HGB CONC 31 g/dL (33-37); MEAN CORPUSCULAR VOLUME 81.9 fL (80-94); MONOCYTES # (AUTO) 0.9 K/uL (0.8-1.0); MONOCYTES % (AUTO) 9.8 % (1.7-9.3); NEUTROPHILS # (AUTO) 6.3 K/uL (1.8-7.7); NEUTROPHILS % (AUTO) 71.5 % (42.2-75.2); PLATELET COUNT (AUTO) 223 K/uL (140-450); RED BLOOD CELL COUNT(AUTO) 4.03 MIL/uL (4.20-5.40); RED CELL DISTRIBUTION WIDTH 20.8 % (11.6-13.7); WHITE BLOOD COUNT (AUTO) 8.8 K/uL (4.8-10.8)
[2019-11-28 08:00] VITALS: BP 147/69
[2019-11-28 08:21] LABS: ANION GAP 11.4 (8-16); CARBON DIOXIDE 31.3 mmol/L (21-32); CHLORIDE 102 mmol/L (98-107); CREATININE 1.1 mg/dL (0.6-1.3); GLUCOSE 172 mg/dL (74-106); POTASSIUM 4.7 mmol/L (3.5-5.1); SODIUM SERUM 140 mmol/L (136-145); UREA NITROGEN, BLOOD 42 mg/dL (7-18)
[2019-11-28 08:29] LABS: MAGNESIUM 1.5 mg/dL (1.8-2.4); PHOSPHORUS 3.2 mg/dL (2.5-4.9)
[2019-11-28] MEDS: metFORMIN 500 MG TAB PO SCH ×2 (09:03→16:13)
--- NOTE | 2019-11-28 09:03 | NUR ---
MORNING MEDICATIONS GIVEN. NO SIGNS OF DISTRESS NOTED. WILL CONTINUE TO MONITOR.
[2019-11-28] MEDS: FERROUS SULFATE 325 MG TABEC PO SCH ×3 (09:06→16:14)
[2019-11-28] MEDS: ASCORBIC ACID 500 MG TAB PO SCH (09:08)
[2019-11-28] MEDS: SUCRALFATE 1 GM TAB PO SCH (09:08)
[2019-11-28] MEDS: SPIRONOLACTONE 25 MG TAB PO SCH (09:09)
[2019-11-28] MEDS: LACTULOSE 20 GM/30 ML UDC PO SCH (09:09)
[2019-11-28] MEDS: VITAMIN D 400 IU TAB PO SCH (09:09)
[2019-11-28] MEDS: ZINC SULF 220 MG CAP PO SCH (09:10)
[2019-11-28] MEDS: DORZOLAMIDE 2% OP 10 ML BTL OP SCH ×2 (09:10→21:53)
[2019-11-28] MEDS: FUROSEMIDE 40 MG TAB PO SCH (09:10)
[2019-11-28] MEDS: MAG SULF 2000 MG/WATER PREMIX 50 ML IV PRN (09:19)
--- NOTE | 2019-11-28 11:38 | NUR ---
AWAKE AND ALERT RESPONSIVE TO FITTER HELPER VERBAL COMMANDS C/O SOB MDI [place] [facility] GIVEN NO ADVERSE REACTIONS NOTED TO THERAPY FITTER HELPER UNAWARE OF MDI DC ORDER 11/27/19 @ 2226 NO DC ORDER RECEIVED IN RESPIRATORY DEPT
[2019-11-28 12:00] VITALS: BP 149/77
--- NOTE | 2019-11-28 12:10 | NUR ---
4 UNITS OF INSULIN GIVEN FOR BLOOD GLUCOSE OF 231. NO SIGNS OF DISTRESS NOTED. V/S TAKEN AND IS WNL. WILL CONTINUE TO MONITOR.
--- NOTE | 2019-11-28 13:15 | NUR ---
PATIENT IS CLEANED, CHANGED, AND TURNED. NO SIGNS OF DISTRESS NOTED. LUNCH TRAY IS BY THE BEDSIDE, AND PATIENT IS EATING ADEQUATELY. V/S TAKEN AND IS WNL. WILL CONTINUE TO MONITOR.
[2019-11-28 16:00] VITALS: BP 147/74
--- NOTE | 2019-11-28 16:18 | NUR ---
6 UNITS OF INSULIN GIVEN FOR BLOOD GLUCOSE OF 264. V/S TAKEN AND IS WNL. WILL CONTINUE TO MONITOR.
--- NOTE | 2019-11-28 16:30 | NUR ---
PATIENT IS CLEANED, CHANGED, AND TURNED. NO SIGNS OF DISTRESS NOTED. WILL CONTINUE TO MONITOR.
--- NOTE | 2019-11-28 18:25 | NUR ---
SPOKE TO DR. MEDEROS ABOUT PATIENT'S REQUEST FOR BREATHING. DR. MEDEROS WILL RENEW ORDERS FOR BREATHING TREATMENT. REPORTED TO RT, WILL CONTINUE TO MONITOR.
[2019-11-28] MEDS ORDERED: ALBUTEROL SULFATE/IPRATROPIU 3 ML SOL IH PRN (18:30)
--- NOTE | 2019-11-28 19:05 | NUR ---
ENDORSED TO DIRECTOR INSURANCE RN FOR CONTINUITY OF CARE.
--- NOTE | 2019-11-28 19:10 | NUR ---
RECEIVED BEDSIDE REPORT FROM DAY SHIFT NURSE FOR CONTINUITY OF CARE. PT IS A&O X 2. AWAKE AND ALERT. REQUESTING BREATHING TX. RT WAS CALLED, AWAITING TX. SKIN IS WARM, DRY, AND INTACT. PT IS SR ON TELE MONITORING. ON 2L O2 NC WHILE EATING BREAKFAST WITH O2 SAT AT 94%. BREATHING IS UNLABORED AND EVEN. PT HAS A MIDLINE RIGHT UPPER ARM DOUBLE LUMEN RUNNING NS TKO. BED IS IN LOWEST POSITION AND CALL LIGHT IS WITHIN REACH. PT IS STABLE AT THIS TIME.
[2019-11-28 20:00] VITALS: BP 130/71
--- NOTE | 2019-11-28 21:00 | NUR ---
PT IS AWAKE AND ALERT. A&O X2. ON RA WITH O2 SAT AT 97%. IV IS INFUSING TKO THROUGH MIDLINE RIGHT UPPER ARM DOUBLE LUMEN. IT IS PATENT AND INTACT. PT IS TURNED AND REPOSITIONED. CHUCKS ARE NOT SOILED AT THIS TIME. WILL CONTINUE TO MONITOR.
[2019-11-28] MEDS: LATANOPROST 0.005% OP 2.5 ML BTL OP SCH (21:53)
[2019-11-28] MEDS: ATORVASTATIN 20 MG TAB PO SCH (21:53)
[2019-11-28] MEDS: INSULIN LANTUS 100 UNITS/ML 10 ML VIAL SUBQ SCH (21:55)
--- NOTE | 2019-11-28 21:55 | NUR ---
RT IS AT BEDSIDE GIVING PT BREATHING TX. BREATHING IS UNLABORED AND REGULAR. NO SIGNS OF DISTRESS NOTED.
[2019-11-28] MEDS: NACL 0.9% 1,000 ML IV SCH (22:00)
[2019-11-28] MEDS: METOPROLOL 25 MG TAB PO SCH (22:05)
--- NOTE | 2019-11-28 23:00 | NUR ---
PT IS REPOSITIONED Q2H ORDERED. PILLOWS ARE PLACED UNDER BONY AREAS AND PADDED BOOTS ARE IN PLACE. PT REQUESTED PUDDING AND PEACHES AND FINISHED ALL OF THE SNACKS. PT KEEPS REQUESTING HOT FOOD BUT IT IS NOT AVAILABLE AT THIS TIME.
[2019-11-29] VITALS: BP 142/62
--- NOTE | 2019-11-29 01:00 | NUR ---
PT IS NOT ASLEEP AND IS REQUESTING FOOD HOT FOOD REPEATEDLY. WAS PROVIDED A SNACK AND JUICE. PT'S NEEDS ARE MET AT THIS TIME. SOILED LINENS WERE CHANGED AND PT IS REPOSITIONED.
--- NOTE | 2019-11-29 03:00 | NUR ---
CONSENT WAS SIGNED FOR ULTRASOUND GUIDED THORACENTESIS AT THE BEDSIDE. PT IS ALERT AND AWAKE AND VERBALIZED UNDERSTANDING.
--- NOTE | 2019-11-29 03:45 | NUR ---
PT IS TURNED AND REPOSITIONED. SOILED LINENS ARE CHANGED. AND PILLOWS ARE USED TO PAD BONY AREAS. BOOTS ARE IN PLACE ON FEET.
[2019-11-29 04:00] VITALS: BP 124/62
--- NOTE | 2019-11-29 05:50 | NUR ---
PT DID NOT SLEEP MUCH LAST NIGHT. SOME ANXIETY REGARDING THORACENTESIS PROCEDURE TODAY. REPEATED REQUESTS FOR BREAKFAST EVEN AFTER GIVEN SNACKS. PT IS STABLE AT THIS TIME AND LAYING CALMLY IN BED. OR SAT IS 94% ON RA. BREATHING IS UNLABORED.
[2019-11-29] MEDS: BLOOD GLUCOSE MONITORING 1 DEV DEV FS SCH ×4 (06:07→20:50)
[2019-11-29] MEDS: INSULIN LISPRO SLIDING SCALE 100 UNITS/ML VIAL SUBQ PRN ×2 (06:10→18:26)
--- NOTE | 2019-11-29 06:42 | NUR ---
SPOKE TO DAUGHTER OF PT ON THE PHONE AND PROVIDED UPDATE AND INFORMED HER THAT THORACENTESIS WILL BE PERFORMED TODAY.
[2019-11-29] MEDS: PANTOPRAZOLE 40 MG TABEC PO SCH (06:53)
[2019-11-29] MEDS: glipiZIDE 10 MG TAB PO SCH ×2 (06:53→17:11)
--- NOTE | 2019-11-29 07:09 | NUR ---
ENDORSED PT TO DAY SHIFT NURSE FOR CONTINUITY OF CARE. PT IS STABLE AT THIS TIME. PLAN OF CARE DISCUSSED.
[2019-11-29 07:16] LABS: BASOPHILS % (AUTO) 0.3 % (0.0-2.0); HEMOGLOBIN 10.3 g/dL (12.0-16.0); LYMPHOCYTES # (AUTO) 1.8 K/uL (2.5-16.5); MEAN CORPUSCULAR HEMOGLOBIN 25 pg (27-31); MEAN CORPUSCULAR HGB CONC 31 g/dL (33-37); MEAN CORPUSCULAR VOLUME 80.9 fL (80-94); MONOCYTES # (AUTO) 0.8 K/uL (0.8-1.0); MONOCYTES % (AUTO) 8.3 % (1.7-9.3); NEUTROPHILS # (AUTO) 7.2 K/uL (1.8-7.7); NEUTROPHILS % (AUTO) 73.4 % (42.2-75.2); PLATELET COUNT (AUTO) 215 K/uL (140-450); RED BLOOD CELL COUNT(AUTO) 4.08 MIL/uL (4.20-5.40); WHITE BLOOD COUNT (AUTO) 9.8 K/uL (4.8-10.8)
--- NOTE | 2019-11-29 07:30 | NUR ---
received report from [facility] nurse, assumed care. pt resting comfortably in bed with no s/s of pain and/or distress at this time. personal belongings, bedside table, call light within reach. will continue to monitor
[2019-11-29 08:40] LABS: ANION GAP 9.8 (8-16); CARBON DIOXIDE 30.7 mmol/L (21-32); CHLORIDE 101 mmol/L (98-107); GLUCOSE 174 mg/dL (74-106); POTASSIUM 4.5 mmol/L (3.5-5.1); SODIUM SERUM 137 mmol/L (136-145); UREA NITROGEN, BLOOD 42 mg/dL (7-18)
[2019-11-29 08:44] LABS: MAGNESIUM 1.5 mg/dL (1.8-2.4); PHOSPHORUS 3.1 mg/dL (2.5-4.9)
[2019-11-29 08:57] VITALS: BP 116/64
[2019-11-29] MEDS: DORZOLAMIDE 2% OP 10 ML BTL OP SCH ×2 (09:00→20:50)
[2019-11-29] MEDS: FUROSEMIDE 40 MG TAB PO SCH (10:34)
[2019-11-29] MEDS: metFORMIN 500 MG TAB PO SCH ×2 (10:34→17:11)
[2019-11-29] MEDS: LACTULOSE 20 GM/30 ML UDC PO SCH (10:34)
[2019-11-29] MEDS: SPIRONOLACTONE 25 MG TAB PO SCH (10:35)
[2019-11-29] MEDS: FERROUS SULFATE 325 MG TABEC PO SCH ×3 (10:35→17:11)
[2019-11-29] MEDS: SUCRALFATE 1 GM TAB PO SCH (10:35)
[2019-11-29 11:16] LABS: PROTHROMBIN TIME 10.5 secs (10.8-13.4)
[2019-11-29 12:00] VITALS: BP 110/50
[2019-11-29 16:00] VITALS: BP 143/74
--- NOTE | 2019-11-29 16:29 | NUR ---
11/29/19 RD FOLLOW UP COMPLETED PLEASE REFER TO NUTRITION ASSESSMENT UNDER CARE ACTIVITY FOR ESTIMATED NUTRITIONAL NEEDS. 1. CONTINUE MECHANICAL SOFT CARDIAC AND CCHO 60 GM DIET TOLERATED 2. IF PO INTAKE <75% CONSIDER GLUCERNA BID 3. CONTINUE TO PROVIDE ASSISTANCE WITH MEALS 4. RD TO FOLLOW-UP 3-5 DAYS, MODERATE RISK YASMEEN ROSS RD
--- NOTE | 2019-11-29 17:57 | NUR ---
care plan reviewed, interventions implemented: fall risk prevention, hydration promotion, blood glucose mgmt, repositioned throughout shift, labs and i/o monitored. thoracentesis performed today by Dr. Castro with 1175 mL yellow fluid removed, pt tolerated well. pt appears to be confused throughout shift, baseline. pt states "i'm not confused", but answers questions appropriately intermittently. all needs met this shift. personal belongings, bedside table, call light within shift. will continue to monitor. Addendum: 11/29/19 at 1805 by Jose Lanza RN VSS, afebrile, o2 sat >92% on RA. no c/o pain throughout shift.
--- NOTE | 2019-11-29 19:30 | NUR ---
RECEIVED BEDSIDE REPORT FROM DAY RN FOR CONTINUITY OF CARE. PT IS A&O X 2 AND HAS MOMENTS OF FORGETFULNESS. RESPIRATIONS ARE EQUAL AND UNLABORED ON ROOM AIR SAT WELL 94%. SKIN IS WARM, DRY, AND INTACT. PT IS SR ON TELE MONITORING. PT HAS A MIDLINE RIGHT UPPER ARM DOUBLE LUMEN RUNNING NS AT 10ML/H. PT IS INCONTINENT. REQUESTING BAGEL WITH CREAM CHEESE INFORM PT SHES ON A MECHANICAL SOFT DIET AND CANNOT HAVE AT THIS TIME. PT VERBLAIZED UNDERSTANDING. ALL NEEDS MET. BED IS IN LOWEST POSITION AND CALL LIGHT IS WITHIN REACH. PT IS STABLE AT THIS TIME.
[2019-11-29 20:00] VITALS: BP 155/67
[2019-11-29] MEDS: INSULIN LANTUS 100 UNITS/ML 10 ML VIAL SUBQ SCH (20:50)
--- NOTE | 2019-11-29 20:50 | NUR ---
VSS. SIDRA MEDS GIVEN PER ORDERS. MG RIDER NOW INFUSING FOR MG LEVEL 1.5L BG 186 ADMINISTERED SIDRA LANTUS AND HUMALOG PER SLIDING SCALE. PT REQUESTING BAGEL AGAIN REMINDED AND EDUCATED PT ON CURRENT DIET. CALL LIGHT IS WITHIN REACH. WILL CONTINUE TO MONITOR.
[2019-11-29] MEDS: LATANOPROST 0.005% OP 2.5 ML BTL OP SCH (20:51)
[2019-11-29] MEDS: ATORVASTATIN 20 MG TAB PO SCH (20:51)
[2019-11-29] MEDS: METOPROLOL 25 MG TAB PO SCH (20:51)
[2019-11-29] MEDS: MAG SULF 2000 MG/WATER PREMIX 50 ML IV PRN (20:53)
[2019-11-29] MEDS: NACL 0.9% 1,000 ML IV SCH (21:01)
--- NOTE | 2019-11-29 22:30 | NUR ---
PT YELLING FOR HELP. ASKED PT WHAT IS WRONG REQUESTING BAGEL AGAIN. EDUCATED PT AND WILL GIVE JELLO AND APPLE SAUCE. CALL LIGHT IS WITHIN REACH. WILL CONTINUE TO MONITOR.
[2019-11-30] VITALS: BP 132/58
--- NOTE | 2019-11-30 | NUR ---
VITAL SIGNS ARE WITHIN NORMAL LIMITS. ALL SAFETY MEASURES ARE IN PLACE. CALL LIGHT IS WITHIN REACH.
--- NOTE | 2019-11-30 02:45 | NUR ---
PT IS SLEEPING COMFORTABLY IN BED WITH EYES CLOSED. CHEST RISE AND FALL NOTED. CALL LIGHT IS WITHIN REACH.
[2019-11-30 04:00] VITALS: BP 132/61
--- NOTE | 2019-11-30 04:00 | NUR ---
VITAL SIGNS ARE WITHIN NORMAL LIMITS. NO S/S OF DISTRESS. CALL LIGHT IS WITHIN REACH. WILL CONTINUE TO MONITOR.
--- NOTE | 2019-11-30 05:30 | NUR ---
PT IS SLEEPING COMFORTABLY IN BED WITH EYES CLOSED. CHEST RISE AND FALL NOTED. SAT WELL 94% ON ROOM AIR.
[2019-11-30] MEDS: BLOOD GLUCOSE MONITORING 1 DEV DEV FS SCH ×3 (06:26→16:46)
[2019-11-30] MEDS: PANTOPRAZOLE 40 MG TABEC PO SCH (06:32)
[2019-11-30] MEDS: glipiZIDE 10 MG TAB PO SCH ×2 (06:32→16:46)
--- NOTE | 2019-11-30 07:12 | NUR ---
RECEIVED REPORT FROM ROUGHER MACHINE OPERATOR RN FOR CONTINUITY OF CARE. PT IS AAOX2, COOPERATIVE AND ABLE TO MAKE NEEDS KNOWN. PT IS ON RA SATING 94%. PT SKIN INTACT BUT HAS OPTIFOAM DRESSING ON SACRAL AREA AND HEEL RISERS FOR PROPHYLAXES. PT HAS MIDLINE INSERTED ON RIGHT UPPER ARM INFUSING NS @ 10ML/HR. DISCUSSED POC WITH PT AND PT VERBALIZED UNDERSTANDING BUT WILL NEED REINFORCEMENT THROUGHOUT THE SHIFT. ALL SAFETY MEASURES IN PLACE. WILL ROUND FREQUENTLY ON PT THROUGHOUT THE SHIFT.
--- NOTE | 2019-11-30 07:28 | NUR ---
GAVE BEDSIDE REPORT TO DAY RN. PT ENDORSED IN STABLE CONDITION.
[2019-11-30 07:29] LABS: BASOPHILS % (AUTO) 0.4 % (0.0-2.0); EOSINOPHILS % (AUTO) 0.1 % (0.0-4.0); HEMATOCRIT 33.6 % (36-48); HEMOGLOBIN 10.4 g/dL (12.0-16.0); LYMPHOCYTES # (AUTO) 1.6 K/uL (2.5-16.5); MEAN CORPUSCULAR HEMOGLOBIN 25 pg (27-31); MEAN CORPUSCULAR HGB CONC 31 g/dL (33-37); MEAN CORPUSCULAR VOLUME 80.7 fL (80-94); MONOCYTES # (AUTO) 0.9 K/uL (0.8-1.0); MONOCYTES % (AUTO) 7.6 % (1.7-9.3); NEUTROPHILS # (AUTO) 9.1 K/uL (1.8-7.7); NEUTROPHILS % (AUTO) 77.9 % (42.2-75.2); PLATELET COUNT (AUTO) 221 K/uL (140-450); RED BLOOD CELL COUNT(AUTO) 4.16 MIL/uL (4.20-5.40); RED CELL DISTRIBUTION WIDTH 20.8 % (11.6-13.7); WHITE BLOOD COUNT (AUTO) 11.7 K/uL (4.8-10.8)
[2019-11-30 07:41] LABS: ANION GAP 13.2 (8-16); CARBON DIOXIDE 30.5 mmol/L (21-32); CHLORIDE 102 mmol/L (98-107); CREATININE 1.2 mg/dL (0.6-1.3); GLUCOSE 133 mg/dL (74-106); POTASSIUM 4.7 mmol/L (3.5-5.1); SODIUM SERUM 141 mmol/L (136-145); UREA NITROGEN, BLOOD 47 mg/dL (7-18)
[2019-11-30] MEDS: FERROUS SULFATE 325 MG TABEC PO SCH ×3 (08:36→16:46)
[2019-11-30] MEDS: SPIRONOLACTONE 25 MG TAB PO SCH (08:37)
[2019-11-30] MEDS: FUROSEMIDE 40 MG TAB PO SCH (08:37)
[2019-11-30] MEDS: SUCRALFATE 1 GM TAB PO SCH (08:37)
[2019-11-30] MEDS: LACTULOSE 20 GM/30 ML UDC PO SCH (08:37)
[2019-11-30] MEDS: metFORMIN 500 MG TAB PO SCH ×2 (08:37→16:46)
[2019-11-30] MEDS: DORZOLAMIDE 2% OP 10 ML BTL OP SCH (08:38)
[2019-11-30 08:51] LABS: PHOSPHORUS 4.1 mg/dL (2.5-4.9)
--- NOTE | 2019-11-30 09:41 | NUR ---
ADMINISTERED MORNING MEDS TO PT. PT TOLERATED WELL. ALL NEEDS MET. WILL CONTINUE TO ROUND FREQUENTLY ON PT.
[2019-11-30 09:57] VITALS: BP 134/49
--- NOTE | 2019-11-30 11:28 | NUR ---
PT RELAXING IN BED. ALL NEEDS MET.
[2019-11-30 12:00] VITALS: BP 121/51
--- NOTE | 2019-11-30 13:58 | NUR ---
PT SLEEPING. ALL NEEDS MET.
--- NOTE | 2019-11-30 15:04 | NUR ---
CALLED [facility] AND GAVE REPORT TO SYLVIA ABARCA RN.
[2019-11-30] MEDS: INSULIN LISPRO SLIDING SCALE 100 UNITS/ML VIAL SUBQ PRN (16:55)
--- NOTE | 2019-11-30 17:50 | NUR ---
PT DC BACK TO [facility] FOR CONTINUITY OF CARE. PT MIDLINE REMOVED WITH TIP INTACT. PT HAD NO PERSONAL BELONGINGS TO TAKE BACK. ALL DC PAPERWORK GIVEN TO TRANSPORT TEAM. PT UNABLE TO SIGN DC PAPERWORK BECAUSE SHE WAS TOO SLEEPY AND DUE TO LOC. TELE BOX REMOVED AND GIVEN TO RECREATIONAL RESORT MANAGER. PT LEFT IN STABLE CONDITION ACCOMPANIED BY TRANSPORT TEAM.
[2019-11-30 18:00] LABS: APPEARANCE,SPUN,BODY FLUID CLEAR (CLEAR); APPEARANCE,UNSPUN,BODY FLUID CLEAR (CLEAR); COLOR,BODY FLUID LT YELLOW (LT YELLOW); SPECIMENTYPE,BODY FLUID THORACENTESIS
[2019-11-30 18:01] LABS: TOTAL VOLUME,BODY FLUID 1185 mL
[2019-11-30 18:15] LABS: RBC, BODY FLUID 3 /cu. mm.; WBC, BODY FLUID 0 /cu. mm.
[2019-11-30 18:19] LABS: GLUCOSE,BODY FLUID 172 mg/dL
== END 2019-11-30 17:55 | DRG 177 ==
LOC: MED 15:55 → MTU 17:54
PROC: 05HY33Z Insertion of Infusion Device into Upper Vein, Percutaneous Approach (ICD-10-PCS; principal; 2019-11-27)
PROC: B54MZZA Ultrasonography of Right Upper Extremity Veins, Guidance (ICD-10-PCS; 2019-11-27)
PROC: 0W993ZZ Drainage of Right Pleural Cavity, Percutaneous Approach (ICD-10-PCS; 2019-11-29)
DX: J69.0 Pneumonitis due to inhalation of food and vomit (principal); I50.43 Acute on chronic combined systolic (congestive) and diastolic (congestive) heart failure; J96.01 Acute respiratory failure with hypoxia; Z68.41 Body mass index [BMI] 40.0-44.9, adult; E44.0 Moderate protein-calorie malnutrition; I48.20 Chronic atrial fibrillation, unspecified; I13.0 Hypertensive heart and chronic kidney disease with heart failure and stage 1 through stage 4 chronic kidney disease, or unspecified chronic kidney disease; J91.8 Pleural effusion in other conditions classified elsewhere; E11.65 Type 2 diabetes mellitus with hyperglycemia; E66.01 Morbid (severe) obesity due to excess calories; E78.5 Hyperlipidemia, unspecified; E83.42 Hypomagnesemia; H40.20X0 Unspecified primary angle-closure glaucoma, stage unspecified; N18.9 Chronic kidney disease, unspecified; E11.22 Type 2 diabetes mellitus with diabetic chronic kidney disease; H54.62 Unqualified visual loss, left eye, normal vision right eye; I25.10 Atherosclerotic heart disease of native coronary artery without angina pectoris; I25.5 Ischemic cardiomyopathy; I48.0 Paroxysmal atrial fibrillation; K21.9 Gastro-esophageal reflux disease without esophagitis; Z20.828 Contact with and (suspected) exposure to other viral communicable diseases; Z86.718 Personal history of other venous thrombosis and embolism; Z95.1 Presence of aortocoronary bypass graft; I25.2 Old myocardial infarction; Z90.49 Acquired absence of other specified parts of digestive tract
CPT/HCPCS: 36415; 71045; 76604; 76942; 80048; 80053; 81003; 82140; 82550; 82945; 82948; 83036; 83605; 83615; 83690; 83735; 83880; 84100; 84157; 84436; 84443; 84484; 85025; 85379; 85610; 85651; 85730; 86140; 87070; 87075; 87081; 87205; 89051; 92526; 92610; 93005; 94664; 96374; 96376; 97110; 97112; 97161-GP; 99285; C1751; J0696; J1815; J1940; J2001; J2060; J3475; J7030; J7060; Q0092; U0003-CS

== ENCOUNTER 2020-05-10 14:04 | Emergency (ER) | payer OTHER ==
[~2020-05-10] VITALS: Ht 167.6 cm; Wt 91.2 kg
[2020-05-10 14:04] VITALS: BP 132/68
[~2020-05-10 14:04] MED LIST changes: -PANT40EC28 PO; +PANT40EC56 PO
--- NOTE | 2020-05-10 14:04 | NUR ---
Patient BIBA BLS, transferred to bed 6. RN evaluating patient at bedside.
--- NOTE | 2020-05-10 14:36 | NUR ---
Dr. Marroquin is evaluating the patient at bedside.
[2020-05-10] MEDS ORDERED: HYDROcodone/APAP 5/325 MG 1 TAB TAB PO ONE (14:45)
[2020-05-10] MEDS ORDERED: MORPHINE SULFATE 4 MG/ML SYR IM ONE (15:05)
[2020-05-10] MEDS ORDERED: ONDANSETRON 4 MG ODT PO ONE (15:05)
--- NOTE | 2020-05-10 15:16 | NUR ---
EKG PERFORMED T BEDSIDE. EKG READS SINUS RHYTHM @ 75
[2020-05-10 15:24] LABS: BASOPHILS # (AUTO) 0.1 K/uL (0.00-0.22); EOSINOPHILS # (AUTO) 0.2 K/uL (0-0.4); EOSINOPHILS % (AUTO) 1.9 % (0.0-4.0); HEMATOCRIT 36.4 % (36-48); HEMOGLOBIN 11.6 g/dL (12.0-16.0); LYMPHOCYTES % (AUTO) 21.1 % (20.5-51.1); MEAN CORPUSCULAR HEMOGLOBIN 27 pg (27-31); MEAN CORPUSCULAR HGB CONC 32 g/dL (33-37); MONOCYTES # (AUTO) 0.8 K/uL (0.8-1.0); MONOCYTES % (AUTO) 8.6 % (1.7-9.3); NEUTROPHILS # (AUTO) 6.5 K/uL (1.8-7.7); NEUTROPHILS % (AUTO) 67.4 % (42.2-75.2); PLATELET COUNT (AUTO) 274 K/uL (140-450); RED BLOOD CELL COUNT(AUTO) 4.24 MIL/uL (4.20-5.40); RED CELL DISTRIBUTION WIDTH 17.2 % (11.6-13.7); WHITE BLOOD COUNT (AUTO) 9.6 K/uL (4.8-10.8)
[2020-05-10 15:45] LABS: PROTHROMBIN TIME 12.9 secs (10.8-13.4)
[2020-05-10 15:46] LABS: ALBUMIN 2.8 g/dL (3.4-5.0); ASPARTATE AMINOTRANSFERASE 16 U/L (15-37); CHLORIDE 107 mmol/L (98-107); CREATININE 1.1 mg/dL (0.6-1.3); GLUCOSE 186 mg/dL (74-106); POTASSIUM 4.4 mmol/L (3.5-5.1); SODIUM SERUM 142 mmol/L (136-145); TOTAL BILIRUBIN 0.3 mg/dL (0.0-1.0); UREA NITROGEN, BLOOD 26 mg/dL (7-18)
--- NOTE | 2020-05-10 15:46 | NUR ---
Patient taken to x-ray via wheelchair by tech.
[2020-05-10 15:57] LABS: ANION GAP 10.7 (8-16); CARBON DIOXIDE 28.7 mmol/L (21-32)
--- NOTE | 2020-05-10 18:13 | NUR ---
Patient transferred to bed 14 for further care.
[2020-05-10 18:55] VITALS: BP 132/68
--- NOTE | 2020-05-10 18:55 | NUR ---
Patient discharged with v/s stable. Written and verbal after care instructions given and explained. Patient verbalized understanding. Ambulance Transport back to [facility]. All questions addressed prior to discharge. Advised to follow up with PMD.
== END 2020-05-10 18:55 | disposition home or self-care (01) ==
LOC: MED 14:04
DX: M54.6 Pain in thoracic spine (principal); E11.9 Type 2 diabetes mellitus without complications; I10 Essential (primary) hypertension; K21.9 Gastro-esophageal reflux disease without esophagitis; J45.909 Unspecified asthma, uncomplicated; R11.0 Nausea
CPT/HCPCS: 36415; 71045; 72072; 80053; 83690; 83880; 84484; 85025; 85610; 85730; 93005; 96372; 99285; J2270; Q0162

== ENCOUNTER 2023-10-24 18:23 | Inpatient (IN) | payer OTHER ==
[~2023-10-24] VITALS: Ht 170.2 cm; Wt 99.8 kg
[~2023-10-24 18:23] MED LIST changes: +CLON0.1T16 PO; -CLON0.1T42 PO; +METF-1274 PO; -METF1000 PO; -SIME80TA22 PO; +SIME80TA41 PO; +SUCR-3 PO; -SUCR1TAB35 PO
[2023-10-24 18:39] VITALS: BP 111/67; PULSE 108; RESP 22; TEMP 101.6; O2SAT 96
[2023-10-24] MEDS ORDERED: ACETAMINOPHEN 650 MG SUPP RC ONE (18:59)
[2023-10-24] MEDS ORDERED: ACETAMINOPHEN 325 MG SUPP RC ONE (18:59)
[2023-10-24] MEDS: ACETAMINOPHEN 650 MG SUPP RC ONE (19:26)
[2023-10-24 19:42] LABS: BASOPHILS % (AUTO) 0.2 % (0.0-2.0); EOSINOPHILS % (AUTO) 0.3 % (0.0-4.0); HEMATOCRIT 36.1 % (36-48); HEMOGLOBIN 11.2 g/dL (12.0-16.0); LYMPHOCYTES # (AUTO) 2.2 K/uL (2.5-16.5); LYMPHOCYTES % (AUTO) 21.9 % (20.5-51.1); MEAN CORPUSCULAR HEMOGLOBIN 26 pg (27-31); MEAN CORPUSCULAR HGB CONC 31 g/dL (33-37); MEAN CORPUSCULAR VOLUME 83.3 fL (80-94); MONOCYTES # (AUTO) 0.5 K/uL (0.8-1.0); MONOCYTES % (AUTO) 4.9 % (1.7-9.3); NEUTROPHILS # (AUTO) 7.3 K/uL (1.8-7.7); NEUTROPHILS % (AUTO) 72.7 % (42.2-75.2); PLATELET COUNT (AUTO) 232 K/uL (140-450); RED BLOOD CELL COUNT(AUTO) 4.33 MIL/uL (4.20-5.40); RED CELL DISTRIBUTION WIDTH 17.5 % (11.6-13.7)
[2023-10-24] MEDS ORDERED: PIPERACILLIN/TAZOBACTAM 3.375 GM VIAL IV ONE (19:42)
[2023-10-24 19:55] LABS: APPEARANCE,URINE SL CLOUDY (CLEAR); BILIRUBIN,URINE NEGATIVE (NEGATIVE); BLOOD, URINE 3+ (NEGATIVE); COLOR,URINE YELLOW (YELLOW); LEUKOCYTE ESTERASE ,URINE 2+ (NEGATIVE); NITRITE, URINE NEGATIVE (NEGATIVE); PH,URINE 5.5 (5.0-9.0); PROTEIN,URINE 1+ (NEGATIVE); UGLUCOSE NEGATIVE (NEGATIVE); UROBILINOGEN,URINE 0.2 EU/dL (0.2 - 1)
[2023-10-24 19:55] LABS: ANION GAP 17.1 (8-16); CALCIUM 7.9 mg/dL (8.5-10.1); CARBON DIOXIDE 24.2 mmol/L (21-32); CHLORIDE 118 mmol/L (98-107); GLUCOSE 207 mg/dL (74-106); POTASSIUM 4.3 mmol/L (3.5-5.1); SODIUM SERUM 155 mmol/L (136-145)
[2023-10-24] MEDS: NACL 0.9% 2,000 ML IV ONE (19:56)
[2023-10-24 19:57] LABS: UREA NITROGEN, BLOOD 102 mg/dL (7-18)
[2023-10-24] MEDS: PIPERACILLIN/TAZOBACTAM 3.375 GM in DEXTROSE 5% 50 ML IV ONE (19:57)
[2023-10-24 19:58] LABS: CREATININE 4.1 mg/dL (0.6-1.3)
[2023-10-24 20:02] LABS: RBC,URINE 11-20 (MOD) /HPF (0-5)
[2023-10-24 20:03] LABS: BACTERIA,URINE 2+ /HPF (None Seen); MUCUS,URINE None Seen /LPF (None Seen); SQUAMOUS EPITHELIAL CELL,UR 4-10 (MOD) /LPF (0-3 (FEW))
[2023-10-24 20:12] LABS: ALANINE AMINOTRANSFERASE 9 U/L (12-78); ALBUMIN 2.8 g/dL (3.4-5.0); ALKALINE PHOSPHATASE 81 U/L (50-136); ASPARTATE AMINOTRANSFERASE 14 U/L (15-37); BILIRUBIN,DIRECT 0.1 mg/dL (0.0-0.3); TOTAL BILIRUBIN 0.3 mg/dL (0.0-1.0); TOTAL PROTEIN, SERUM 7.7 g/dL (6.4-8.2)
[2023-10-24 20:16] LABS: FLU A ANTIGEN negative (NEGATIVE); FLU B ANTIGEN NEGATIVE (NEGATIVE)
[2023-10-24 20:18] LABS: LACTIC ACID 1.4 mmol/L (0.4-2.0)
[2023-10-24] MEDS ORDERED: ACETAMINOPHEN 325 MG TAB PO PRN (22:45)
[2023-10-24] MEDS ORDERED: INSULIN LISPRO SLIDING SCALE 100 UNITS/ML VIAL SUBQ PRN (22:55)
[2023-10-24] MEDS ORDERED: DEXTROSE 50% 50 ML SYR IVP PRN (22:55)
[2023-10-24] MEDS ORDERED: RIVA20TA PO (22:59)
[2023-10-24] MEDS ORDERED: MAGN400S60 PO (22:59)
[2023-10-24] MEDS ORDERED: GABA300C PO (22:59)
[2023-10-24] MEDS ORDERED: ONDA-188 PO (22:59)
[2023-10-24] MEDS ORDERED: MELA1TAB32 PO (22:59)
[2023-10-24] MEDS ORDERED: METF1TER PO (22:59)
[2023-10-24] MEDS ORDERED: FURO-570 PO (22:59)
[2023-10-24] MEDS ORDERED: CETI10SG1 PO (22:59)
[2023-10-24] MEDS ORDERED: AMLO-3 PO (22:59)
[2023-10-24] MEDS ORDERED: INSU100I24 SQ (22:59)
[2023-10-24] MEDS ORDERED: DOCU-299 PO (22:59)
[2023-10-25] VITALS (8 sets, daily range): BP systolic 113–132; BP diastolic 43–53; PULSE 61–76; RESP 12–20; TEMP 96–97.6; O2SAT 95–99
[2023-10-25] MEDS: DEXTROSE 5% 1,000 ML IV SCH (00:03)
[2023-10-25] MEDS: NACL 0.9% 1,000 ML IV SCH (02:24)
[2023-10-25] MEDS ORDERED: PIPERACILLIN/TAZOBACTAM 2.25 GM VIAL IV ONE (05:02)
[2023-10-25] MEDS: PIPERACILLIN/TAZOBACTAM 2.25 GM in DEXTROSE 5% 50 ML IV SCH (05:03)
[2023-10-25 05:12] LABS: BLOOD GAS PCO2 38.2 mmHg (35-45); BLOOD GAS PH 7.359 (7.35-7.45); BLOOD GAS PO2 80.8 mmHg (75-100)
[2023-10-25 05:13] LABS: BLOOD GAS O2 SAT% 95.2 % (92.0-98.5)
[2023-10-25 07:39] LABS: BASOPHILS % (AUTO) 0.4 % (0.0-2.0); EOSINOPHILS % (AUTO) 0.4 % (0.0-4.0); HEMATOCRIT 33.9 % (36-48); HEMOGLOBIN 10.4 g/dL (12.0-16.0); LYMPHOCYTES % (AUTO) 35.8 % (20.5-51.1); MEAN CORPUSCULAR HEMOGLOBIN 26 pg (27-31); MEAN CORPUSCULAR HGB CONC 31 g/dL (33-37); MEAN CORPUSCULAR VOLUME 83.8 fL (80-94); MONOCYTES # (AUTO) 0.8 K/uL (0.8-1.0); NEUTROPHILS # (AUTO) 6.3 K/uL (1.8-7.7); NEUTROPHILS % (AUTO) 56.4 % (42.2-75.2); PLATELET COUNT (AUTO) 195 K/uL (140-450); RED BLOOD CELL COUNT(AUTO) 4.04 MIL/uL (4.20-5.40); RED CELL DISTRIBUTION WIDTH 17.2 % (11.6-13.7); WHITE BLOOD COUNT (AUTO) 11.2 K/uL (4.8-10.8)
[2023-10-25 07:55] LABS: ANION GAP 14.8 (8-16); CALCIUM 7.6 mg/dL (8.5-10.1); CARBON DIOXIDE 23.2 mmol/L (21-32); CHLORIDE 122 mmol/L (98-107); CREATININE 3.3 mg/dL (0.6-1.3); GLUCOSE 130 mg/dL (74-106)
[2023-10-25 08:01] LABS: SODIUM SERUM 156 mmol/L (136-145); UREA NITROGEN, BLOOD 84 mg/dL (7-18)
[2023-10-25] MEDS ORDERED: CEFEPIME 2,000 MG in DEXTROSE 5% 100 ML IV SCH (09:00)
[2023-10-25] MEDS: BLOOD GLUCOSE MONITORING 1 DEV DEV FS SCH ×2 (09:42→11:56)
[2023-10-25] MEDS: NACL 0.45% 1,000 ML IV SCH (11:24)
[2023-10-25] MEDS ORDERED: LOPERAMIDE 2 MG CAP PO PRN (11:30)
[2023-10-25] MEDS ORDERED: CALCIUM CARBONATE PO SCH (11:30)
[2023-10-25] MEDS ORDERED: NACL 0.9% 1,000 ML IV SCH (11:30)
[2023-10-25] MEDS ORDERED: MAGNESIUM HYDROXIDE 2400 MG/30 ML UDC PO PRN (11:30)
[2023-10-25] MEDS ORDERED: SIMETHICONE 80 MG TAB.CHEW PO PRN (11:30)
[2023-10-25] MEDS ORDERED: SIMETHICONE PO SCH (11:30)
[2023-10-25] MEDS ORDERED: ACETAMINOPHEN 325 MG TAB PO PRN (11:30)
[2023-10-25] MEDS ORDERED: ONDANSETRON 4 MG/2 ML VIAL IVP PRN (11:30)
[2023-10-25] MEDS ORDERED: IPRATROPIUM 0.02% 0.5 MG/2.5 ML NEBU INH PRN ×2 (11:30→11:54)
[2023-10-25] MEDS ORDERED: CLONIDINE HYDROCHLORIDE 0.1 MG TAB PO PRN (11:30)
[2023-10-25] MEDS: amLODIPine 5 MG TAB PO SCH (11:50)
[2023-10-25] MEDS: FERROUS SULFATE 325 MG TABEC PO SCH (11:50)
[2023-10-25 13:02] LABS: ANION GAP 16.3 (8-16); CALCIUM 7.8 mg/dL (8.5-10.1); CARBON DIOXIDE 24.8 mmol/L (21-32); CHLORIDE 119 mmol/L (98-107); CREATININE 3.2 mg/dL (0.6-1.3); GLUCOSE 125 mg/dL (74-106); POTASSIUM 4.1 mmol/L (3.5-5.1)
[2023-10-25 13:06] LABS: INR 1.04 (0.8-1.2); PARTIAL THROMBOPLASTIN TIME 31.8 secs (22-35.6); PROTHROMBIN TIME 10.9 secs (10.8-13.4)
[2023-10-25 13:07] LABS: LACTIC ACID 1.2 mmol/L (0.4-2.0); SODIUM SERUM 156 mmol/L (136-145); UREA NITROGEN, BLOOD 79 mg/dL (7-18)
[2023-10-25 13:14] LABS: FREE T4 (FREE THYROXINE) 1.13 ng/dL (0.76-1.46); MAGNESIUM 1.5 mg/dL (1.8-2.4); PHOSPHORUS 3.6 mg/dL (2.5-4.9); THYROID STIMULATING HORMONE 1.44 uIU/mL (0.34-3.74)
[2023-10-25] MEDS ORDERED: metFORMIN 500 MG TAB PO SCH (17:00)
[2023-10-25] MEDS ORDERED: LATANOPROST OP SCH (21:00)
[2023-10-25] MEDS ORDERED: NETARSUDIL MESYLAT OP SCH (21:00)
[2023-10-25] MEDS ORDERED: TIMOLOL OP 0.5% 5 ML BTL OP SCH (21:00)
[2023-10-25] MEDS ORDERED: BRIMONIDINE TARTRATE OP SCH (21:00)
[2023-10-25] MEDS ORDERED: [UNRECOGNIZED DRUG - OTHER] OP SCH (21:00)
[2023-10-25] MEDS ORDERED: TIMOLOL OP SCH (21:00)
[2023-10-25] MEDS: DORZOLAMIDE 2% OP 10 ML BTL OP SCH (21:00)
[2023-10-25] MEDS: glipiZIDE 10 MG TAB PO SCH (21:46)
[2023-10-25] MEDS: RIVAROXABAN 10 MG TAB PO SCH (21:46)
[2023-10-25] MEDS: DOCUSATE SODIUM 100 MG GELCAP PO SCH (21:48)
[2023-10-25] MEDS: GABAPENTIN 300 MG CAP PO SCH (21:48)
[2023-10-25] MEDS: METOPROLOL 25 MG TAB PO SCH (21:49)
[2023-10-25] MEDS: MELATONIN 3 MG TAB PO SCH (21:49)
[2023-10-25] MEDS: BRIMONIDINE TARTRATE 0.2% OP 5 ML BTL OP SCH (21:56)
[2023-10-25] MEDS: TIMOLOL OP 0.5% 5 ML BTL OP SCH (21:57)
[2023-10-25] MEDS: ATORVASTATIN 20 MG TAB PO SCH (22:09)
[2023-10-26] VITALS (11 sets, daily range): BP systolic 100–131; BP diastolic 32–55; PULSE 48–64; RESP 18; TEMP 96–97.8; O2SAT 94–99
[2023-10-26] MEDS: DEXTROSE 50% 50 ML SYR IVP PRN (06:37)
[2023-10-26 06:48] LABS: BASOPHILS % (AUTO) 0.5 % (0.0-2.0); EOSINOPHILS # (AUTO) 0.3 K/uL (0-0.4); EOSINOPHILS % (AUTO) 2.6 % (0.0-4.0); HEMATOCRIT 29.3 % (36-48); HEMOGLOBIN 9.4 g/dL (12.0-16.0); LYMPHOCYTES # (AUTO) 3.9 K/uL (2.5-16.5); LYMPHOCYTES % (AUTO) 40.3 % (20.5-51.1); MEAN CORPUSCULAR HEMOGLOBIN 26 pg (27-31); MEAN CORPUSCULAR HGB CONC 32 g/dL (33-37); MEAN CORPUSCULAR VOLUME 82.7 fL (80-94); MONOCYTES # (AUTO) 0.7 K/uL (0.8-1.0); NEUTROPHILS # (AUTO) 4.8 K/uL (1.8-7.7); NEUTROPHILS % (AUTO) 49.6 % (42.2-75.2); PLATELET COUNT (AUTO) 182 K/uL (140-450); RED BLOOD CELL COUNT(AUTO) 3.55 MIL/uL (4.20-5.40); RED CELL DISTRIBUTION WIDTH 16.3 % (11.6-13.7); WHITE BLOOD COUNT (AUTO) 9.7 K/uL (4.8-10.8)
[2023-10-26 07:18] LABS: ANION GAP 14.5 (8-16); CALCIUM 7.8 mg/dL (8.5-10.1); CHLORIDE 115 mmol/L (98-107); CREATININE 2.4 mg/dL (0.6-1.3); POTASSIUM 3.5 mmol/L (3.5-5.1); SODIUM SERUM 147 mmol/L (136-145)
[2023-10-26 07:19] LABS: MAGNESIUM 1.3 mg/dL (1.8-2.4); PHOSPHORUS 2.9 mg/dL (2.5-4.9)
[2023-10-26 07:21] LABS: UREA NITROGEN, BLOOD 61 mg/dL (7-18)
[2023-10-26 07:22] LABS: GLUCOSE 37 mg/dL (74-106)
[2023-10-26] MEDS ORDERED: PANTOPRAZOLE 40 MG TABEC PO SCH (07:30)
[2023-10-26] MEDS ORDERED: CEFEPIME 500 MG in DEXTROSE 5% 50 ML IV SCH (09:00)
[2023-10-26] MEDS ORDERED: DOCUSATE SODIUM 100 MG GELCAP PO SCH (09:00)
[2023-10-26] MEDS: SPIRONOLACTONE 25 MG TAB PO SCH (09:00)
[2023-10-26] MEDS ORDERED: FUROSEMIDE 40 MG TAB PO SCH (09:00)
[2023-10-26] MEDS: CALCIUM CARBONATE 500 MG TAB.CHEW PO SCH (09:07)
[2023-10-26] MEDS: LACTULOSE 20 GM/30 ML UDC PO SCH (09:08)
[2023-10-26] MEDS: LORATADINE 10 MG TAB PO SCH (09:08)
[2023-10-26] MEDS: SUCRALFATE 1 GM TAB PO SCH (09:09)
[2023-10-26] MEDS: PANTOPRAZOLE 40 MG INJ VIAL IVP SCH (09:10)
[2023-10-26] MEDS: MAG SULF 2000 MG/WATER PREMIX 100 ML IV PRN (12:23)
[2023-10-26] MEDS: INSULIN LISPRO SLIDING SCALE 100 UNITS/ML VIAL SUBQ PRN (16:28)
[2023-10-26] MEDS: LATANOPROST 0.005% OP 2.5 ML BTL OP SCH (21:00)
[2023-10-27] VITALS (12 sets, daily range): BP systolic 118–132; BP diastolic 44–64; PULSE 54–72; RESP 17–18; TEMP 96.7–97.8; O2SAT 93–100
[2023-10-27 08:38] LABS: BASOPHILS # (AUTO) 0.1 K/uL (0.00-0.22); BASOPHILS % (AUTO) 0.7 % (0.0-2.0); EOSINOPHILS # (AUTO) 0.2 K/uL (0-0.4); EOSINOPHILS % (AUTO) 2.3 % (0.0-4.0); HEMATOCRIT 32.5 % (36-48); HEMOGLOBIN 10.3 g/dL (12.0-16.0); LYMPHOCYTES # (AUTO) 3.2 K/uL (2.5-16.5); MEAN CORPUSCULAR HEMOGLOBIN 26 pg (27-31); MEAN CORPUSCULAR HGB CONC 32 g/dL (33-37); MEAN CORPUSCULAR VOLUME 82.4 fL (80-94); MONOCYTES # (AUTO) 0.6 K/uL (0.8-1.0); MONOCYTES % (AUTO) 7.8 % (1.7-9.3); NEUTROPHILS # (AUTO) 3.7 K/uL (1.8-7.7); NEUTROPHILS % (AUTO) 48.2 % (42.2-75.2); PLATELET COUNT (AUTO) 174 K/uL (140-450); RED BLOOD CELL COUNT(AUTO) 3.94 MIL/uL (4.20-5.40); RED CELL DISTRIBUTION WIDTH 16.6 % (11.6-13.7); WHITE BLOOD COUNT (AUTO) 7.7 K/uL (4.8-10.8)
[2023-10-27 11:06] LABS: ALANINE AMINOTRANSFERASE 7 U/L (12-78); ALBUMIN 2.3 g/dL (3.4-5.0); ALKALINE PHOSPHATASE 60 U/L (50-136); ANION GAP 15.2 (8-16); ASPARTATE AMINOTRANSFERASE 24 U/L (15-37); CALCIUM 8.1 mg/dL (8.5-10.1); CARBON DIOXIDE 20.6 mmol/L (21-32); CHLORIDE 113 mmol/L (98-107); CREATININE 2.3 mg/dL (0.6-1.3); GLUCOSE 112 mg/dL (74-106); POTASSIUM 4.8 mmol/L (3.5-5.1); SODIUM SERUM 144 mmol/L (136-145); TOTAL BILIRUBIN 0.3 mg/dL (0.0-1.0); TOTAL PROTEIN, SERUM 6.5 g/dL (6.4-8.2); UREA NITROGEN, BLOOD 48 mg/dL (7-18)
[2023-10-27] MEDS ORDERED: HYDRAGUARD CREAM TP PRN (12:05)
[2023-10-27] MEDS ORDERED: Z-GUARD PASTE TP PRN (12:05)
[2023-10-27] MEDS: HYDRAGUARD CREAM TP SCH (13:32)
[2023-10-27] MEDS: Z-GUARD PASTE TP SCH (13:32)
[2023-10-28] VITALS (10 sets, daily range): BP systolic 112–142; BP diastolic 43–54; PULSE 54–61; RESP 17–18; TEMP 96.7–97.2; O2SAT 96–100
[2023-10-28 07:04] LABS: BASOPHILS % (AUTO) 0.4 % (0.0-2.0); EOSINOPHILS # (AUTO) 0.2 K/uL (0-0.4); EOSINOPHILS % (AUTO) 2.7 % (0.0-4.0); HEMATOCRIT 28.2 % (36-48); HEMOGLOBIN 8.9 g/dL (12.0-16.0); MEAN CORPUSCULAR HEMOGLOBIN 26 pg (27-31); MEAN CORPUSCULAR HGB CONC 32 g/dL (33-37); MEAN CORPUSCULAR VOLUME 82.6 fL (80-94); MONOCYTES # (AUTO) 0.6 K/uL (0.8-1.0); MONOCYTES % (AUTO) 8.7 % (1.7-9.3); NEUTROPHILS # (AUTO) 2.7 K/uL (1.8-7.7); NEUTROPHILS % (AUTO) 42.2 % (42.2-75.2); PLATELET COUNT (AUTO) 164 K/uL (140-450); RED BLOOD CELL COUNT(AUTO) 3.41 MIL/uL (4.20-5.40); RED CELL DISTRIBUTION WIDTH 16.5 % (11.6-13.7); WHITE BLOOD COUNT (AUTO) 6.5 K/uL (4.8-10.8)
[2023-10-28 07:18] LABS: ANION GAP 14.6 (8-16); CALCIUM 7.6 mg/dL (8.5-10.1); CARBON DIOXIDE 19.2 mmol/L (21-32); CHLORIDE 113 mmol/L (98-107); CREATININE 2.1 mg/dL (0.6-1.3); GLUCOSE 106 mg/dL (74-106); POTASSIUM 3.8 mmol/L (3.5-5.1); SODIUM SERUM 143 mmol/L (136-145); UREA NITROGEN, BLOOD 39 mg/dL (7-18)
[2023-10-28 07:24] LABS: MAGNESIUM 1.8 mg/dL (1.8-2.4); PHOSPHORUS 3.5 mg/dL (2.5-4.9)
[2023-10-29] VITALS: BP 148/63; PULSE 59; PULSE 64; RESP 18; TEMP 97.3; O2SAT 98
[2023-10-29 04:00] VITALS: BP 127/43; PULSE 60; PULSE 65; RESP 18; TEMP 97.5; O2SAT 99
[2023-10-29 07:24] LABS: BASOPHILS # (AUTO) 0.1 K/uL (0.00-0.22); BASOPHILS % (AUTO) 1.4 % (0.0-2.0); EOSINOPHILS # (AUTO) 0.2 K/uL (0-0.4); EOSINOPHILS % (AUTO) 3.3 % (0.0-4.0); HEMATOCRIT 28.4 % (36-48); HEMOGLOBIN 9.2 g/dL (12.0-16.0); LYMPHOCYTES # (AUTO) 2.8 K/uL (2.5-16.5); LYMPHOCYTES % (AUTO) 37.7 % (20.5-51.1); MEAN CORPUSCULAR HEMOGLOBIN 27 pg (27-31); MEAN CORPUSCULAR HGB CONC 32 g/dL (33-37); MEAN CORPUSCULAR VOLUME 82.1 fL (80-94); MONOCYTES # (AUTO) 0.6 K/uL (0.8-1.0); MONOCYTES % (AUTO) 7.8 % (1.7-9.3); NEUTROPHILS # (AUTO) 3.7 K/uL (1.8-7.7); NEUTROPHILS % (AUTO) 49.8 % (42.2-75.2); PLATELET COUNT (AUTO) 167 K/uL (140-450); RED BLOOD CELL COUNT(AUTO) 3.46 MIL/uL (4.20-5.40); RED CELL DISTRIBUTION WIDTH 16.4 % (11.6-13.7); WHITE BLOOD COUNT (AUTO) 7.4 K/uL (4.8-10.8)
[2023-10-29 07:46] LABS: MAGNESIUM 1.6 mg/dL (1.8-2.4); PHOSPHORUS 2.7 mg/dL (2.5-4.9)
[2023-10-29 08:00] VITALS: BP 128/44; PULSE 61; PULSE 67; RESP 18; TEMP 97; O2SAT 97
[2023-10-29] MEDS ORDERED: LEVO-481 PO (10:56)
[2023-10-29 11:45] LABS: ANION GAP 14.3 (8-16); CALCIUM 7.4 mg/dL (8.5-10.1); CARBON DIOXIDE 17.6 mmol/L (21-32); CHLORIDE 112 mmol/L (98-107); CREATININE 1.9 mg/dL (0.6-1.3); GLUCOSE 147 mg/dL (74-106); POTASSIUM 3.9 mmol/L (3.5-5.1); SODIUM SERUM 140 mmol/L (136-145); UREA NITROGEN, BLOOD 29 mg/dL (7-18)
[2023-10-29 12:00] VITALS: BP 125/44; PULSE 71; RESP 18; TEMP 97.1; O2SAT 96
[2023-10-29 16:00] VITALS: BP 114/54; PULSE 73; PULSE 79; RESP 18; TEMP 97.3; O2SAT 94
[2023-10-29] MEDS: MAGNESIUM OXIDE 400 MG TAB PO SCH (17:17)
== END 2023-10-29 17:30 | DRG 871 ==
LOC: MED 18:23 → EEVIPCON 22:46 → MMU 22:46 → MTU 10-25 03:10
DX: A41.9 Sepsis, unspecified organism (principal); E43 Unspecified severe protein-calorie malnutrition; G93.41 Metabolic encephalopathy; N17.0 Acute kidney failure with tubular necrosis; I50.43 Acute on chronic combined systolic (congestive) and diastolic (congestive) heart failure; N39.0 Urinary tract infection, site not specified; I13.0 Hypertensive heart and chronic kidney disease with heart failure and stage 1 through stage 4 chronic kidney disease, or unspecified chronic kidney disease; E87.0 Hyperosmolality and hypernatremia; Z20.822 Contact with and (suspected) exposure to COVID-19; E11.22 Type 2 diabetes mellitus with diabetic chronic kidney disease; K52.9 Noninfective gastroenteritis and colitis, unspecified; I48.0 Paroxysmal atrial fibrillation; K57.90 Diverticulosis of intestine, part unspecified, without perforation or abscess without bleeding; N18.30 Chronic kidney disease, stage 3 unspecified; E86.0 Dehydration; D64.9 Anemia, unspecified; E11.40 Type 2 diabetes mellitus with diabetic neuropathy, unspecified; E66.9 Obesity, unspecified; E78.5 Hyperlipidemia, unspecified; K59.00 Constipation, unspecified; Z68.34 Body mass index [BMI] 34.0-34.9, adult; Z79.899 Other long term (current) drug therapy
CPT/HCPCS: 36415; 36600; 71045; 80048; 80053; 80076; 81001; 82140; 82150; 82550; 82803; 82948; 83036; 83605; 83690; 83735; 83880; 84100; 84439; 84443; 84484; 85025; 85610; 85730; 87040; 87081; 87086; 87186; 93005; 93970; 96374; 97110; 97163-GP; 97530; 99291; J0692; J1815; J2470; J2543; J3475; J7060; Q0092